=== PATIENT | male | born 1965 | race American Indian/Alaskan Native ===

== ENCOUNTER 2018-12-14 11:52 | Inpatient (IN) | payer BC, OTHER ==
[2018-12-14] MEDS ORDERED: D50W (25GM) Syringe IV ONE ×6 (12:02→18:00)
[2018-12-14] MEDS ORDERED: NACL 0.9% 1000 ML 1,000 ML ONE (12:02)
[2018-12-14] MEDS ORDERED: NACL 0.9% 1000 ML 1,000 ML IV ONE (12:03)
[2018-12-14 12:55] LABS: INR 2.22 (0.87-1.13)
[2018-12-14 12:56] LABS: Basophils % (Auto) 0.2 % (0.0-1.8); Eosinophils % (Auto) 0.1 % (0.0-4.3); Hemoglobin 8.8 gm/dl (11.8-15.2); Lymphocytes # (Auto) 0.5 K/mm3 (1.2-5.4); Lymphocytes % (Auto) 6.9 % (13.4-35.0); Mean Corpuscular HGB Conc 33 % (32-34); Monocytes # (Auto) 0.4 K/mm3 (0.0-0.8); Monocytes % (Auto) 5.7 % (0.0-7.3); Platelet Count 181 K/mm3 (140-440); Red Blood Count 4.02 M/mm3 (3.65-5.03)
[2018-12-14 12:56] LABS: Partial Thromboplastin Time 32.6 Sec. (24.2-36.6)
[2018-12-14 12:57] LABS: Mean Corpuscular Volume 67 fl (84-94); Red Cell Distribution Width 21.3 % (13.2-15.2)
[2018-12-14 13:05] LABS: Alanine Aminotransferase 109 units/L (7-56); BUN/Creatinine Ratio 64; Bilirubin,Direct 3.4 mg/dL (0-0.2); Blood Urea Nitrogen 32 mg/dL (9-20); Calcium 7.3 mg/dL (8.4-10.2); Hemolysis Index 2
--- NOTE | 2018-12-14 13:43 | Emergency Department Report ---
ED General Adult HPI - General Chief complaint: Altered Mental Status Stated complaint: LBS Source: EMS Mode of arrival: Stretcher Limitations: Altered Mental Status - History of Present Illness Initial comments: This is a 55-year-old man with apparent end-stage metastatic cancer of unknown primary. He resides in a hospitalist. Paramedics were called to the facility to respond to an unresponsive patient. They found the patient to have a glucose of 10 and agonal respirations. He did not have a cardiac arrest per se. He was intubated by medics in the field without sedation. Medics were unable to establish IV access and thus he was not given D50. He was transported to this facility where access was achieved. Accu-Chek showed a glucose of 71 after 1 amp of D50 was given. An additional amp was provided. Patient did not apparently respond. He was found to have myotic and poorly reactive pupils. -: unknown - Related Data Allergies Allergy/AdvReac Type Severity Reaction Status Date / Time Unable to Assess Allergy Unverified 12/14/18 12:43 ED Review of Systems ROS: Stated complaint: LBS Other details as noted in HPI Comment: Unobtainable due to pts medical conditions ED Past Medical Hx - Past Medical History Hx of Cancer: Yes (colon) Additional medical history: unable to assess due to unresponsiveness - Surgical History Additional Surgical History: unable to assess due to unresponsiveness - Social History Smoking Status: Unknown if ever smoked Other Social History: Hospice patient with "full CODE STATUS" ED Physical Exam - General Limitations: Altered Mental Status General appearance: cachectic, other (unresponsive) - Head Head exam: Present: atraumatic, normocephalic - Eye Eye exam: Present: scleral icterus - Neck Neck exam: Present: normal inspection - Respiratory Respiratory exam: Present: normal lung sounds bilaterally (with Ambu bag assist) - Cardiovascular Cardiovascular Exam: Present: regular rate, normal rhythm. Absent: systolic murmur, diastolic murmur, rubs, gallop - GI/Abdominal GI/Abdominal exam: Present: soft, distended, organomegaly, mass, other (likely ascites) - Extremities Exam Extremities exam: Present: pedal edema - Neurological Exam Neurological exam: Present: other (obtunded) ED Course Vital Signs 12/14/18 12/14/18 11:53 12:00 Temperature 93.6 F L Pulse Rate 91 H 83 Respiratory 15 Rate Blood Pressure 86/51 109/79 O2 Sat by Pulse 97 100 Oximetry - Reevaluation(s) Reevaluation #1: Patient's blood glucose came back 411. Accu-Cheks were persistently low at 2 machines. A repeat BMP is pending. We will monitor the Accu-Chek again. Patient was found to be hypothermic. He was placed on warming blanket. He was given empiric Miotics. He will be admitted to the hospitalist service. CT of his head is pending. 12/14/18 14:05 Reevaluation #2: It appears clear that the patient has suffered a significant brain injury. CT is as yet pending. He received a first round of antibiotics for his hypothermic state. I did not order a lactic acid level because it would be predictably high. Do not believe the patient is septic. He is clinically end-stage. I discussed the circumstances with Dr. Forde who is inclined to arrange for milli nued hospice care if this is possible to allow natural . 12/14/18 15:04 ED Medical Decision Making - Lab Data Result diagrams: 12/14/18 12:28 12/14/18 13:59 Laboratory Results - last 24 hr 12/14/18 12/14/18 12/14/18 12:19 12:19 12:19 WBC RBC Hgb Hct MCV MCH MCHC RDW Plt Count Lymph % (Auto) Wheeler % (Auto) Eos % (Auto) Baso % (Auto) Lymph # Wheeler # Eos # Baso # Seg Neutrophils % Seg Neutrophils # PT 24.2 H INR 2.22 H APTT 32.6 POC ABG pH POC ABG pCO2 POC ABG HCO3 POC ABG Total CO2 POC ABG O2 Sat POC ABG Base Excess FiO2 Sodium Potassium Chloride Carbon Dioxide Anion Gap BUN Creatinine Estimated GFR BUN/Creatinine Ratio Glucose Calcium Phosphorus 5.10 H Magnesium Total Bilirubin Direct Bilirubin Indirect Bilirubin AST ALT Alkaline Phosphatase Troponin T < 0.010 NT-Pro-B Natriuret Pep Total Protein Albumin Albumin/Globulin Ratio 12/14/18 12/14/18 12/14/18 12:20 12:28 13:20 WBC 7.4 RBC 4.02 Hgb 8.8 L Hct 27.0 L MCV 67 L MCH 22 L MCHC 33 RDW 21.3 H Plt Count 181 Lymph % (Auto) 6.9 L Wheeler % (Auto) 5.7 Eos % (Auto) 0.1 Baso % (Auto) 0.2 Lymph # 0.5 L Wheeler # 0.4 Eos # 0.0 Baso # 0.0 Seg Neutrophils % 87.1 H Seg Neutrophils # 6.5 PT INR APTT POC ABG pH 7.396 POC ABG pCO2 37.0 POC ABG HCO3 22.7 POC ABG Total CO2 24 POC ABG O2 Sat 100 POC ABG Base Excess -2 FiO2 100 Sodium 129 L Potassium 4.8 Chloride 95.5 L Carbon Dioxide 21 L Anion Gap 17 BUN 32 H Creatinine 0.5 L Estimated GFR > 60 BUN/Creatinine Ratio 64 Glucose 411 H Calcium 7.3 L Phosphorus Magnesium 2.00 Total Bilirubin 4.20 H Direct Bilirubin 3.4 H Indirect Bilirubin 0.8 AST 405 H ALT 109 H Alkaline Phosphatase 438 H Troponin T NT-Pro-B Natriuret Pep 567.7 Total Protein 4.4 L Albumin 2.0 L Albumin/Globulin Ratio 0.8 Laboratory Results - last 24 hr 12/14/18 12/14/18 12/14/18 12:05 12:19 12:19 WBC RBC Hgb Hct MCV MCH MCHC RDW Plt Count Lymph % (Auto) Wheeler % (Auto) Eos % (Auto) Baso % (Auto) Lymph # Wheeler # Eos # Baso # Seg Neutrophils % Seg Neutrophils # PT 24.2 H INR 2.22 H APTT 32.6 POC ABG pH POC ABG pCO2 POC ABG HCO3 POC ABG Total CO2 POC ABG O2 Sat POC ABG Base Excess FiO2 Sodium Potassium Chloride Carbon Dioxide Anion Gap BUN Creatinine Estimated GFR BUN/Creatinine Ratio Glucose POC Glucose 61 L Calcium Phosphorus Magnesium Total Bilirubin Direct Bilirubin Indirect Bilirubin AST ALT Alkaline Phosphatase Troponin T < 0.010 NT-Pro-B Natriuret Pep Total Protein Albumin Albumin/Globulin Ratio 12/14/18 12/14/18 12/14/18 12:19 12:20 12:28 WBC 7.4 RBC 4.02 Hgb 8.8 L Hct 27.0 L MCV 67 L MCH 22 L MCHC 33 RDW 21.3 H Plt Count 181 Lymph % (Auto) 6.9 L Wheeler % (Auto) 5.7 Eos % (Auto) 0.1 Baso % (Auto) 0.2 Lymph # 0.5 L Wheeler # 0.4 Eos # 0.0 Baso # 0.0 Seg Neutrophils % 87.1 H Seg Neutrophils # 6.5 PT INR APTT POC ABG pH POC ABG pCO2 POC ABG HCO3 POC ABG Total CO2 POC ABG O2 Sat POC ABG Base Excess FiO2 Sodium 129 L Potassium 4.8 Chloride 95.5 L Carbon Dioxide 21 L Anion Gap 17 BUN 32 H Creatinine 0.5 L Estimated GFR > 60 BUN/Creatinine Ratio 64 Glucose 411 H POC Glucose Calcium 7.3 L Phosphorus 5.10 H Magnesium 2.00 Total Bilirubin 4.20 H Direct Bilirubin 3.4 H Indirect Bilirubin 0.8 AST 405 H ALT 109 H Alkaline Phosphatase 438 H Troponin T NT-Pro-B Natriuret Pep 567.7 Total Protein 4.4 L Albumin 2.0 L Albumin/Globulin Ratio 0.8 12/14/18 12/14/18 12/14/18 12:35 13:20 13:23 WBC RBC Hgb Hct MCV MCH MCHC RDW Plt Count Lymph % (Auto) Wheeler % (Auto) Eos % (Auto) Baso % (Auto) Lymph # Wheeler # Eos # Baso # Seg Neutrophils % Seg Neutrophils # PT INR APTT POC ABG pH 7.396 POC ABG pCO2 37.0 POC ABG HCO3 22.7 POC ABG Total CO2 24 POC ABG O2 Sat 100 POC ABG Base Excess -2 FiO2 100 Sodium Potassium Chloride Carbon Dioxide Anion Gap BUN Creatinine Estimated GFR BUN/Creatinine Ratio Glucose POC Glucose 77 82 Calcium Phosphorus Magnesium Total Bilirubin Direct Bilirubin Indirect Bilirubin AST ALT Alkaline Phosphatase Troponin T NT-Pro-B Natriuret Pep Total Protein Albumin Albumin/Globulin Ratio 12/14/18 12/14/18 13:58 13:59 WBC RBC Hgb Hct MCV MCH MCHC RDW Plt Count Lymph % (Auto) Wheeler % (Auto) Eos % (Auto) Baso % (Auto) Lymph # Wheeler # Eos # Baso # Seg Neutrophils % Seg Neutrophils # PT INR APTT POC ABG pH POC ABG pCO2 POC ABG HCO3 POC ABG Total CO2 POC ABG O2 Sat POC ABG Base Excess FiO2 Sodium 135 L Potassium 5.8 H D Chloride 100.4 Carbon Dioxide 20 L Anion Gap 20 BUN 31 H Creatinine 0.3 L Estimated GFR > 60 BUN/Creatinine Ratio 103 Glucose 80 POC Glucose 61 L Calcium 7.8 L Phosphorus Magnesium Total Bilirubin 4.90 H Direct Bilirubin Indirect Bilirubin AST 611 H ALT 163 H Alkaline Phosphatase 500 H Troponin T NT-Pro-B Natriuret Pep Total Protein 5.1 L Albumin 2.2 L Albumin/Globulin Ratio 0.8 - EKG Data -: EKG Interpreted by Me EKG shows normal: sinus rhythm - EKG Data Interpretation: other (motion artifact could be consistent with hypothermia. P ossible first degree AV block. Somewhat poor R-wave progression. Nonspecific.) - Radiology Data interpreted by me: Her tracheal tube is in the thorax beyond the thoracic inlet. Maybe about 5 cm above the beatriz. This is adequate to position. There appears to be a met in the right lower lobe. Critical Care Time: Yes Critical care time in (mins) excluding proc time.: 90 Critical care attestation.: If time is entered above; I have spent that time in minutes in the direct care of this critically ill patient, excluding procedure time. ED Disposition Clinical Impression: Hypoglycemia Respiratory failure Qualifiers: Chronicity: acute Respiratory failure complication: unspecified whether with hypoxia or hypercapnia Qualified Code(s): J96.00 - Acute respiratory failure, unspecified whether with hypoxia or hypercapnia Hypothermia Qualifiers: Encounter type: initial encounter Qualified Code(s): T68.XXXA - Hypothermia, initial encounter Coma Qualifiers: Coma depth: other Coma timing: in the field (EMT or ambulance) Qualified Code(s): R40.2441 - Other coma, without documented [place] coma scale score, or with partial score reported, in the field [EMT or ambulance] Disposition: DC-09 OP ADMIT IP TO THIS HOSP Is pt being admited?: Yes Does the pt Need Aspirin: No (we'll decide after CT) Condition: Stable Time of Disposition: 15:06
[2018-12-14] MEDS ORDERED: MERREM 1,000 MG in NACL 0.9% 100 ML IV ONE (13:50)
--- NOTE | 2018-12-14 14:14 | XRay Report ---
CHEST 1 VIEW INDICATION: ETT placement. COMPARISON: None FINDINGS: Support devices: An endotracheal tube has been inserted which terminates 5.3 cm superior to the richelle a Heart: Within normal limits. Lungs/Pleura: Mild emphysematous changes are suspected in the upper lobes. A 2.5 cm rounded masslike lesion overlies the right lower lobe. The remainder the lungs are clear. No pleural effusion or pneum othorax. Additional findings: None. IMPRESSION: Adequate placement of the endotracheal tube. Possible 2.5 cm right lower lobe mass. Consider follow- up CT chest with contrast. Signer Name: Shaun Babcock Jr, MD Signed: 12/14/2018 2:09 PM Workstation Name: [id number]
[2018-12-14 14:39] LABS: Alanine Aminotransferase 163 units/L (7-56); Albumin 2.2 g/dL (3.9-5); BUN/Creatinine Ratio 103; Blood Urea Nitrogen 31 mg/dL (9-20); Calcium 7.8 mg/dL (8.4-10.2); Hemolysis Index 64
[2018-12-14] MEDS: ARTIFICIAL TEARS OPHTH OINT OU PRN (15:31)
[2018-12-14] MEDS: VASELINE LIP THERAPY TP PRN (15:31)
--- NOTE | 2018-12-14 16:59 | History and Physical Report ---
History of Present Illness Chief complaint: Unresponsive History of present illness: 53 YO Male Assisted Living Facility Resident currently on Hospice care with [facility] with Metastatic Neoplasm with Unknown primary presents to ED for evaluation. Pt is unresponsive and unable to provide history. Pt history pro vided by ED staff, as well as RESIDENTIAL staff. As per staff, the patient has experience decreased oral intake over the past 2 weeks with increased confusion, and is currently unable to independently conduct activities of daily living. Pt was found to be stuporous today. EMS was notified and upon arrival the patient was found to be in respiratory distress with agonal respirations and a serum glucose of 10. Pt intubated and initiated on D50 and transported to [facility]. Pt seen and evaluated in ED and placed on vent support. Pt prognosis discussed with [facility] staff, and patient Hospice Benefit has been revoked and family requests aggressive therapy. Pt father Juaquin HustonSr. is currently en route to the hospital. Pt found to have Acute Respiratory Failure, Severe Malnutrition, Encephalopathy, as well as R Lung mass, and Hepatic Failure. Pt has poor prognosis. Pt admitted to ICU. Pulmonary team consulted in ED. Extra 60 minutes critical care time spent coordinating patient care. 30 minutes spent conducting Advanced care planning. No prior admission for review. No listed medication for reconciliation at time of admission. Past History Past Medical History: cancer Past Surgical History: No surgical history, Other (Unable to Obtain) Social history: no significant social history (Unable to obtain) Family history: no significant family history (Unable to Obtain) Medications and Allergies Allergies Allergy/AdvReac Type Severity Reaction Status Date / Time No Known Allergies Allergy Unverified 12/14/18 20:51 Active Meds: Active Medications Hydrophilic Ointment (Vaseline Lip Therapy) 1 applic TP Q2HR PRN PRN Reason: Dry Lips Last Admin: 12/14/18 15:31 Dose: 1 applic Documented by: Multi-Ingred Cream/Lotion/Oil/Oint (Artificial Tears Ophth Oint) 1 applic OU Q4HR PRN PRN Reason: Dry Eye(s) Last Admin: 12/14/18 15:31 Dose: 1 applic Documented by: Review of Systems ROS unobtainable: due to endotracheal tube, due to mental status Exam - Constitutional Vitals: Temp Pulse Resp BP Pulse Ox 93.6 F L 123 H 20 101/74 100 12/14/18 11:53 07/12/19 15:43 12/14/18 15:44 12/14/18 14:00 12/14/18 15:44 General appearance: Present: severe distress - EENT Eyes: Present: miosis - Neck Neck: Present: supple, normal ROM - Respiratory Respiratory: bilateral: diminished, rhonchi - Cardiovascular Heart Sounds: Present: S1 & S2. Absent: rub, click - Extremities Extremities: pulses symmetrical, No edema Peripheral Pulses: within normal limits - Abdominal General gastrointestinal: Present: soft, non-tender, non-distended, normal bowel sounds Male genitourinary: Present: normal - Integumentary Integumentary: Present: clear, dry - Musculoskeletal Musculoskeletal: generalized weakness - Psychiatric Psychiatric: no appropriate mood/affect, no intact judgment & insight, no memory intact - Neurologic Neurologic: CNII-XII intact, no gait normal Results - Labs CBC & Chem 7: 12/15/18 04:05 12/15/18 04:05 Labs: Abnormal lab results 12/14/18 12/14/18 12/14/18 Range/Units 12:05 12:19 12:19 Hgb (11.8-15.2) gm/dl Hct (35.5-45.6) % MCV (84-94) fl MCH (28-32) pg RDW (13.2-15.2) % Lymph % (Auto) (13.4-35.0) % Lymph # (1.2-5.4) K/mm3 Seg Neutrophils % (40.0-70.0) % PT 24.2 H (12.2-14.9) Sec. INR 2.22 H (0.87-1.13) Sodium (137-145) mmol/L Potassium (3.6-5.0) mmol/L Chloride (98-107) mmol/L Carbon Dioxide (22-30) mmol/L BUN (9-20) mg/dL Creatinine (0.8-1.5) mg/dL Glucose (75-100) mg/dL POC Glucose 61 L (70-105) Calcium (8.4-10.2) mg/dL Phosphorus 5.10 H (2.5-4.5) mg/dL Total Bilirubin (0.1-1.2) mg/dL Direct Bilirubin (0-0.2) mg/dL AST (5-40) units/L ALT (7-56) units/L Alkaline Phosphatase (35-129) units/L Ammonia (25-60) umol/L Total Protein (6.3-8.2) g/dL Albumin (3.9-5) g/dL 12/14/18 12/14/18 12/14/18 Range/Units 12:20 12:28 13:58 Hgb 8.8 L (11.8-15.2) gm/dl Hct 27.0 L (35.5-45.6) % MCV 67 L (84-94) fl MCH 22 L (28-32) pg RDW 21.3 H (13.2-15.2) % Lymph % (Auto) 6.9 L (13.4-35.0) % Lymph # 0.5 L (1.2-5.4) K/mm3 Seg Neutrophils % 87.1 H (40.0-70.0) % PT (12.2-14.9) Sec. INR (0.87-1.13) Sodium 129 L (137-145) mmol/L Potassium (3.6-5.0) mmol/L Chloride 95.5 L (98-107) mmol/L Carbon Dioxide 21 L (22-30) mmol/L BUN 32 H (9-20) mg/dL Creatinine 0.5 L (0.8-1.5) mg/dL Glucose 411 H (75-100) mg/dL POC Glucose 61 L (70-105) Calcium 7.3 L (8.4-10.2) mg/dL Phosphorus (2.5-4.5) mg/dL Total Bilirubin 4.20 H (0.1-1.2) mg/dL Direct Bilirubin 3.4 H (0-0.2) mg/dL AST 405 H (5-40) units/L ALT 109 H (7-56) units/L Alkaline Phosphatase 438 H (35-129) units/L Ammonia (25-60) umol/L Total Protein 4.4 L (6.3-8.2) g/dL Albumin 2.0 L (3.9-5) g/dL 12/14/18 12/14/18 Range/Units 13:59 14:38 Hgb (11.8-15.2) gm/dl Hct (35.5-45.6) % MCV (84-94) fl MCH (28-32) pg RDW (13.2-15.2) % Lymph % (Auto) (13.4-35.0) % Lymph # (1.2-5.4) K/mm3 Seg Neutrophils % (40.0-70.0) % PT (12.2-14.9) Sec. INR (0.87-1.13) Sodium 135 L (137-145) mmol/L Potassium 5.8 H D (3.6-5.0) mmol/L Chloride (98-107) mmol/L Carbon Dioxide 20 L (22-30) mmol/L BUN 31 H (9-20) mg/dL Creatinine 0.3 L (0.8-1.5) mg/dL Glucose (75-100) mg/dL POC Glucose (70-105) Calcium 7.8 L (8.4-10.2) mg/dL Phosphorus (2.5-4.5) mg/dL Total Bilirubin 4.90 H (0.1-1.2) mg/dL Direct Bilirubin (0-0.2) mg/dL AST 611 H (5-40) units/L ALT 163 H (7-56) units/L Alkaline Phosphatase 500 H (35-129) units/L Ammonia 83.0 H (25-60) umol/L Total Protein 5.1 L (6.3-8.2) g/dL Albumin 2.2 L (3.9-5) g/dL Assessment and Plan - Patient Problems (1) Acute respiratory failure Current Visit: Yes Status: Acute Qualifiers: Respiratory failure complication: hypoxia Qualified Code(s): J96.01 - Acute respiratory failure with hypoxia Plan to address problem: Pt intubated, sedated and placed on vent support. Wean vent as tolerated, daily SBT, ABG, suupportive care. The high probability of a clinically significant, sudden or life threatening deterioration of the [Neuro, respiratory, cardiac, renal] system(s) required my full and direct attention, intervention and personal management. The aggregate critical care time was [120] minutes. This time is in addition to time spent performing reported procedures but includes the following: [x] Data Review and interpretation [x] Patient assessment and monitoring of vital signs [x] Documentation [x] Medication orders and management (2) Malignant neoplasm Current Visit: Yes Status: Acute Plan to address problem: Suupportive care, Chest x ray, pain control, IVF resuscitation, (3) Encephalopathy Current Visit: Yes Status: Acute Plan to address problem: CT Head, neuro check, seizure precautions, IVF resuscitation therapy (4) Hepatic failure Current Visit: Yes Status: Acute Qualifiers: Hepatic coma status: with hepatic coma Plan to address problem: Supportive care, suspected secondary to metastatic disease, pain control supportive care. (5) Acidosis Current Visit: Yes Status: Acute Plan to address problem: IVF resuscitation therapy, repeat bmp in am. (6) Hypoglycemia Current Visit: Yes Status: Acute Plan to address problem: D5 drip, IVF resuscitation therapy (7) Hypothermia Current Visit: Yes Status: Acute Qualifiers: Encounter type: initial encounter Qualified Code(s): T68.XXXA - Hypothermia, initial encounter Plan to address problem: Warming blanket, pain control, supportive care. (8) DVT prophylaxis Current Visit: Yes Status: Acute Plan to address problem: SCD to BLE while in bed, hold anticoagulation for now due to metastatic liver disease.
--- NOTE | 2018-12-14 17:05 | Cat Scan Report ---
CT BRAIN: 12/14/2018 at 1626 hours INDICATION / CLINICAL INFORMATION: unconscious post code. COMPARISON: None available. FINDINGS: BRAIN/INTRACRANIAL STRUCTURES: Unenhanced CT images of the brain demonstrate no evidence of acute int racranial abnormality. Ventricles and sulci are slightly prominent in size for a patient of this age, consistent with some d iffuse cerebral atrophy. There is no CT evidence of acute ischemic injury, hemorrhage, or mass. There are no abnormal extra-ax ial fluid collections. EXTRACRANIAL STRUCTURES: Unremarkable. IMPRESSION: No acute abnormality. Mild cerebral atrophy. All CT scans at this location are performed using dose reduction to ALARA by means of automated expos ure control. Signer Name: Alvin Sapp MD Signed: 12/14/2018 5:01 PM Workstation Name: [id number]
[2018-12-14] MEDS ORDERED: MORPHINE IV PRN (18:46)
[2018-12-14] MEDS ORDERED: PROVENTIL IH PRN (18:46)
[2018-12-14] MEDS ORDERED: SODIUM CHLORIDE FLUSH SYRINGE 10 ML IV PRN (18:46)
[2018-12-14] MEDS ORDERED: KIONEX PR ONE ×2 (19:30→23:15)
[2018-12-14] MEDS ORDERED: CALCIUM GLUCONATE 1,000 MG in NACL 0.9% 100 ML IV ONE (19:30)
[2018-12-14] MEDS ORDERED: SUBLIMAZE IV PRN (19:53)
[2018-12-14] MEDS: D5/0.45NS 1,000 ML IV SCH (22:23)
[2018-12-14] MEDS: SODIUM CHLORIDE FLUSH SYRINGE 10 ML IV SCH (22:24)
--- NOTE | 2018-12-15 03:15 | XRay Report ---
CHEST 1 VIEW INDICATION / CLINICAL INFORMATION: follow up respiratory failure. COMPARISON: 12/14/2018 FINDINGS: SUPPORT DEVICES: The tip of the endotracheal tube is located 7 cm above the HEART / MEDIASTINUM: No significant abnormality. LUNGS / PLEURA: No significant pulmonary or pleural abnormality. No pneumothorax. ADDITIONAL FINDINGS: Possible nodular density seen on the comparison study appears to correlate with the anterior portion of the right fourth rib may represent costochondral hypertrophy. IMPRESSION: 1. No acute findings. Signer Name: Uday Marques MD Signed: 12/15/2018 3:10 AM Workstation Name: [id number]
[2018-12-15 04:35] LABS: Hematocrit 32.4 % (35.5-45.6); Hemoglobin 10.6 gm/dl (11.8-15.2); Mean Corpuscular HGB Conc 33 % (32-34); Platelet Count 209 K/mm3 (140-440)
[2018-12-15 04:42] LABS: Mean Corpuscular Volume 66 fl (84-94); Red Cell Distribution Width 20.5 % (13.2-15.2)
[2018-12-15 04:56] LABS: Albumin 2.4 g/dL (3.9-5)
--- NOTE | 2018-12-15 06:51 | Consultation ---
History of Present Illness Consult date: 12/15/18 Requesting physician: AYANA POSADAS Reason for consult: abnormal CXR/CT, other (Encephalopathy, critical care management) History of present illness: 53 YO Male Assisted Living Facility Resident currently on Hospice care with [facility] with Metastatic Neoplasm with Unknown primary presents to ED for evaluation. Pt is unresponsive and unable to provide history. Pt history provided by ED staff, as well as [facility] staff. As per staff, the patient has experience decreased oral intake over the past 2 weeks with increased confusion, and is currently unable to independently conduct activities of daily living. Pt was found to be stuporous today. EMS was notified and upon arrival the patient was found to be in respiratory distress with agonal respirations and a serum glucose of 10. Pt intubated and initiated on D50 and transported to [facility]. Pt seen and evaluated in ED and placed on vent support. Pt prognosis discussed with [facility] staff, and patient Hospice Benefit has been revoked and family requests aggressive therapy. Pt father Juaquin Sr. Betzaida is currently en route to the hospital. Pt found to have Acute Respiratory Failure, Severe Malnutrition, Encephalopathy, as well as R Lung mass, and Hepatic Failure. Pt has poor prognosis. Patient admitted to ICU. I have been consulted fro critical care management Patient was seen and examined. Vitals, labs, medications, chart and imaging were reviewed. He is currently orally intubated to MVS, acceptable hemodynamics and is unresponsive. Vent settings AC-PRVC 15/500/6/30% On review of the medical records/paper chart, patient was discharged from hospice and is currently full code and full aggressive care. Discussed with RT and RN at the bedside Past History Past Medical History: cancer Past Surgical History: No surgical history, Other (Unable to Obtain) Social history: no significant social history (Unable to obtain) Family history: no significant family history (Unable to Obtain) Medications and Allergies Allergies Allergy/AdvReac Type Severity Reaction Status Date / Time No Known Allergies Allergy Unverified 12/14/18 20:51 Home Medications Medication Instructions Recorded Confirmed Last Taken Type oxyCODONE [roxiCODONE] 5 mg PO PRN PRN 12/15/18 12/15/18 Unknown History Active Meds: Active Medications Albuterol (Proventil) 2.5 mg IH Q3HRT PRN PRN Reason: Shortness Of Breath Fentanyl (Sublimaze) 50 mcg IV Q10MIN PRN PRN Reason: ANALGESIA Hydrophilic Ointment (Vaseline Lip Therapy) 1 applic TP Q2HR PRN PRN Reason: Dry Lips Last Admin: 12/14/18 15:31 Dose: 1 applic Documented by: Fentanyl Citrate (Fentanyl Drip Premix) 2,000 mcg in 100 mls @ 2.574 mls/hr IV TITR DAMON; Protocol Dextrose/Sodium Chloride (D5/0.45ns) 1,000 mls @ 100 mls/hr IV DIRECT DAMON Last Admin: 12/14/18 22:23 Dose: 100 mls/hr Documented by: Morphine Sulfate (Morphine) 2 mg IV Q2H PRN PRN Reason: Pain, Moderate (4-6) Multi-Ingred Cream/Lotion/Oil/Oint (Artificial Tears Ophth Oint) 1 applic OU Q4HR PRN PRN Reason: Dry Eye(s) Last Admin: 12/14/18 15:31 Dose: 1 applic Documented by: Sodium Chloride (Sodium Chloride Flush Syringe 10 Ml) 10 ml IV BID DAMON Last Admin: 12/14/18 22:24 Dose: 10 ml Documented by: Sodium Chloride (Sodium Chloride Flush Syringe 10 Ml) 10 ml IV PRN PRN PRN Reason: LINE FLUSH Review of Systems ROS unobtainable: due to endotracheal tube, due to mental status Physical Examination Vital signs: Vital Signs Temp Pulse Resp BP Pulse Ox 93.6 F L 91 H 15 86/51 97 12/14/18 11:53 12/14/18 11:53 12/14/18 11:53 12/14/18 11:53 12/14/18 11:53 General appearance: no acute distress, comatose, other (cachetic) Eyes: non-icteric ENT: oropharynx dry, other (orlly intubated, ETT 7.0 cm at 22cm at the lip) Neck: supple, no lymphadenopathy, no JVD Effort: normal (riding the set raate on MVS) Ascultation: Bilateral: diminished breath sounds Cardiovascular: regular rate and rhythm, other (S1,S2, no murmurs, gallops or rubs) Gastrointestinal: normoactive bowel sounds, soft, non-tender, non-distended Extremities: no cyanosis, no edema, no ischemia or petechiae unable to assess other (unable to assess) Results - Laboratory Findings CBC and BMP: 12/15/18 04:05 12/16/18 00:37 ABG POC ABG pH 7.530 (7.35-7.45) H 12/15/18 06:35 POC ABG pO2 160 (80-105) H 12/15/18 06:35 POC ABG HCO3 22.8 (22-26 mml/L) 12/15/18 06:35 POC ABG Total CO2 24 (23-27mmol/L) 12/15/18 06:35 POC ABG O2 Sat 100 12/15/18 06:35 PT/INR, D-dimer PT 24.2 Sec. (12.2-14.9) H 12/14/18 12:19 INR 2.22 (0.87-1.13) H 12/14/18 12:19 Abnormal lab findings: Abnormal Labs 12/14/18 12/14/18 12/14/18 12:05 12:19 12:19 Hgb Hct MCV MCH RDW Lymph % (Auto) Lymph # Seg Neutrophils % PT 24.2 H INR 2.22 H POC ABG pH POC ABG pO2 Sodium Potassium Chloride Carbon Dioxide BUN Creatinine Glucose POC Glucose 61 L Calcium Phosphorus 5.10 H Total Bilirubin Direct Bilirubin AST ALT Alkaline Phosphatase Ammonia Total Protein Albumin 12/14/18 12/14/18 12/14/18 12:20 12:28 13:58 Hgb 8.8 L Hct 27.0 L MCV 67 L MCH 22 L RDW 21.3 H Lymph % (Auto) 6.9 L Lymph # 0.5 L Seg Neutrophils % 87.1 H PT INR POC ABG pH POC ABG pO2 Sodium 129 L Potassium Chloride 95.5 L Carbon Dioxide 21 L BUN 32 H Creatinine 0.5 L Glucose 411 H POC Glucose 61 L Calcium 7.3 L Phosphorus Total Bilirubin 4.20 H Direct Bilirubin 3.4 H AST 405 H ALT 109 H Alkaline Phosphatase 438 H Ammonia Total Protein 4.4 L Albumin 2.0 L 12/14/18 12/14/18 12/14/18 13:59 14:38 17:41 Hgb Hct MCV MCH RDW Lymph % (Auto) Lymph # Seg Neutrophils % PT INR POC ABG pH POC ABG pO2 Sodium 135 L Potassium 5.8 H D Chloride Carbon Dioxide 20 L BUN 31 H Creatinine 0.3 L Glucose POC Glucose < 40 L Calcium 7.8 L Phosphorus Total Bilirubin 4.90 H Direct Bilirubin AST 611 H ALT 163 H Alkaline Phosphatase 500 H Ammonia 83.0 H Total Protein 5.1 L Albumin 2.2 L 12/14/18 12/14/18 12/15/18 17:59 23:45 00:21 Hgb Hct MCV MCH RDW Lymph % (Auto) Lymph # Seg Neutrophils % PT INR POC ABG pH POC ABG pO2 Sodium Potassium Chloride Carbon Dioxide BUN Creatinine Glucose 139 H POC Glucose 53 L 49 L Calcium Phosphorus Total Bilirubin Direct Bilirubin AST ALT Alkaline Phosphatase Ammonia Total Protein Albumin 12/15/18 12/15/18 12/15/18 03:50 04:05 04:05 Hgb 10.6 L Hct 32.4 L MCV 66 L MCH 22 L RDW 20.5 H Lymph % (Auto) Lymph # Seg Neutrophils % PT INR POC ABG pH 7.563 H POC ABG pO2 155 H Sodium Potassium Chloride Carbon Dioxide BUN Creatinine Glucose POC Glucose Calcium Phosphorus Total Bilirubin Direct Bilirubin AST ALT Alkaline Phosphatase Ammonia Total Protein Albumin 2.4 L 12/15/18 06:35 Hgb Hct MCV MCH RDW Lymph % (Auto) Lymph # Seg Neutrophils % PT INR POC ABG pH 7.530 H POC ABG pO2 160 H Sodium Potassium Chloride Carbon Dioxide BUN Creatinine Glucose POC Glucose Calcium Phosphorus Total Bilirubin Direct Bilirubin AST ALT Alkaline Phosphatase Ammonia Total Protein Albumin - Diagnostic Findings Chest x-ray: image reviewed (ETT is about 5 cm above beatriz, elevated right hem i-diaphragm, right lower lobe opacity/infiltrate) Additional studies: CT head, negative for any mass, bleed or shift Assessment and Plan Acute Hypoxemic Respiratory failure on MVS Severe hypoglycemia Lactic acidosis probably secondary to hypoperfusion Acute metabolic encephalopathy Protein-calorie malnutrition (severe) Right lower lobe lung mass h/o metastatic malignancy Liver failure( elevated Bilirubin, liver enzymes, elevated INR, hypoglycemia) Coagulopathy( probably secondary to liver failure and malnutrition) Microcytic anemia -Continue with mechanical ventilatory support, adjust minute ventilation for better gas exchange(has respiratory alkalosis) -VAP bundle addressed -Supplemental oxygen wean to O2 sats >990% -Daily SATs and SBTs per protocol and as tolerated -VTE prophylaxis( SCDs for now, elevated INR) -Stress ulcer prophylaxis -Place small bowel feeding tube for nutritional support -Nutrition consult, initiate enteric nutrition -Dextrose infusion until enteric nutrition is initiated -Vasopressor support as indicated to keep MAP>65 -Patient does not clinically have a focus of infection, it appears that his hypothermia and encephalopathy is probably related to hypoglycemia and metastatic liver disease -Mobility and off loading to prevent pressure ulcer -Accuchecks, avoid hypoglcemia -Aspiration precautions, HOB >40 -Will need to have goals of care discussions with the family and also discussions to get more information on the diagnosis of metastatic cancer -Monitor intake and output closely -Start lactulose for possible hepatic encephalopathy -Monitor for bleeding -With liver failure, lactic acidosis may persist for a longer period. Trend levels -Follow cultures, early de-escalation of antibiotics. PROGNOSIS: GUARDED-POOR CONDITION: CRITICAL CODE STATUS: FULL CODE The high probability of a clinically significant, sudden or life-threatening deterioration of the [respiratory, neurology, GI systems required my full and direct attention, intervention and personal management. The aggregate critical care time was [65] minutes without overlap. Time includes spent on; [x] Data Review and interpretation [x] Patient assessment and monitoring of vital signs [x] Documentation [x] Medication orders and management
[2018-12-15 08:04] LABS: Alanine Aminotransferase 241 units/L (7-56); BUN/Creatinine Ratio 140; Blood Urea Nitrogen 28 mg/dL (9-20); Calcium 8.3 mg/dL (8.4-10.2); Hemolysis Index 11
[2018-12-15] MEDS: D5/0.45NS 1,000 ML IV SCH ×2 (09:23→17:44)
[2018-12-15] MEDS: fentaNYL DRIP Premix 2,000 MCG/100 ML BAG IV SCH (09:23)
[2018-12-15] MEDS ORDERED: D50W (25GM) Syringe IV ONE ×3 (09:55→10:15)
[2018-12-15] MEDS ORDERED: PANCREAZE DR 10,500 UNIT FEEDTUBE PRN ×2 (10:17→10:58)
[2018-12-15] MEDS ORDERED: SODIUM BICARBONATE FEEDTUBE PRN ×2 (10:17→10:58)
[2018-12-15] MEDS ORDERED: SIMPLE SYRUP FEEDTUBE PRN ×4 (10:17→10:58)
[2018-12-15] MEDS: SODIUM CHLORIDE FLUSH SYRINGE 10 ML IV SCH (10:37)
[2018-12-15 10:39] LABS: Total Cells Counted 100
[2018-12-15 10:46] LABS: Anisocytosis 2+; Band Neutrophils # (Manual) 0.2 K/mm3; Basophils % (Manual) 0 % (0.0-1.8); Eosinophils % (Manual) 0 % (0.0-4.3); Hypochromasia 1+; Ovalocytes Few; Poikilocytosis 1+; Target Cells 1+
[2018-12-15 10:47] LABS: Platelet Estimate Consistent w Auto; Tear Drop Cells Rare
--- NOTE | 2018-12-15 11:24 | Progress Note ---
Assessment and Plan Assessment and plan: Septic shock. Patient meets criteria given the hypotension, hypothermia and liver failure. Maintain pressors as needed. Continue IV fluid hydration. Start IV antibiotics. Acute hypoxemic respiratory failure. Patient orally intubated on mechanical ventilation. Wean vent as tolerated, daily SBT, ABG, suupportive care. Pulmonary consulted and following. Primary cancer of unknown source. Metastatic Neoplasm with Unknown primary. Patient was previously on hospice. This designation apparently has been revoked. We will attempt to have continued discussed with the family. Toxic metabolic encephalopathy. CT scan negative. Etiology secondary to sepsis and hypoglycemia. Hepatic failure. Etiology likely secondary to metastatic disease, pain control supportive care. Hypoglycemia. Continue D50 and D5 IV fluid as needed. Start tube feedings The high probability of a clinically significant, sudden or life threatening deterioration of the [respiratory, hepatic and neurological] system(s) required my full and direct attention, intervention and personal management. The aggregate critical care time was [32] minutes. This time is in addition to time spent performing reported procedures but includes the following: [x] Data Review and interpretation [x] Patient assessment and monitoring of vital signs [x] Documentation [x] Medication orders and management History Interval history: No new issues overnight. Hospitalist Physical - Constitutional Vitals: Temp Pulse Resp BP Pulse Ox 97.6 F 113 H 15 93/70 97 12/15/18 08:00 12/15/18 09:16 12/15/18 07:41 12/15/18 09:16 12/15/18 09:16 General appearance: Present: severe distress, other (orally intubated) - EENT Eyes: Present: PERRL, EOM intact ENT: hearing intact, clear oral mucosa, dentition normal - Neck Neck: Present: supple, normal ROM - Respiratory Respiratory effort: normal Respiratory: bilateral: CTA - Cardiovascular Rhythm: regular Heart Sounds: Present: S1 & S2. Absent: gallop, rub - Extremities Extremities: no ischemia, No edema, Full ROM - Abdominal General gastrointestinal: soft, non-tender, non-distended, normal bowel sounds - Integumentary Integumentary: Present: clear, warm, dry - Neurologic Neurologic: other (encephalopathic responds minimally to pain) Results - Labs CBC & Chem 7: 12/15/18 04:05 12/15/18 04:05 Labs: Laboratory Last Values WBC 8.3 K/mm3 (4.5-11.0) 12/15/18 04:05 RBC 4.90 M/mm3 (3.65-5.03) 12/15/18 04:05 Hgb 10.6 gm/dl (11.8-15.2) L 12/15/18 04:05 Hct 32.4 % (35.5-45.6) L 12/15/18 04:05 MCV 66 fl (84-94) L 12/15/18 04:05 MCH 22 pg (28-32) L 12/15/18 04:05 MCHC 33 % (32-34) 12/15/18 04:05 RDW 20.5 % (13.2-15.2) H 12/15/18 04:05 Plt Count 209 K/mm3 (140-440) 12/15/18 04:05 Lymph % (Auto) 6.9 % (13.4-35.0) L 12/14/18 12:28 Leon % (Auto) Life Trainer 12/15/18 04:05 Eos % (Auto) 0.1 % (0.0-4.3) 12/14/18 12:28 Baso % (Auto) 0.2 % (0.0-1.8) 12/14/18 12:28 Lymph # 0.5 K/mm3 (1.2-5.4) L 12/14/18 12:28 Leon # 0.4 K/mm3 (0.0-0.8) 12/14/18 12:28 Eos # 0.0 K/mm3 (0.0-0.4) 12/14/18 12:28 Baso # 0.0 K/mm3 (0.0-0.1) 12/14/18 12:28 Add Manual Diff Complete 12/15/18 04:05 Total Counted 100 12/15/18 04:05 Seg Neutrophils % 87.1 % (40.0-70.0) H 12/14/18 12:28 Seg Neuts % (Manual) 88.0 % (40.0-70.0) H 12/15/18 04:05 2.0 % 12/15/18 04:05 7.0 % (13.4-35.0) L 12/15/18 04:05 Reactive Lymphs % (Man) 0 % 12/15/18 04:05 3.0 % (0.0-7.3) 12/15/18 04:05 0 % (0.0-4.3) 12/15/18 04:05 0 % (0.0-1.8) 12/15/18 04:05 0 % 12/15/18 04:05 0 % 12/15/18 04:05 0 % 12/15/18 04:05 0 % 12/15/18 04:05 Nucleated RBC % Not Reportable 12/15/18 04:05 Seg Neutrophils # 6.5 K/mm3 (1.8-7.7) 12/14/18 12:28 Seg Neutrophils # Man 7.3 K/mm3 (1.8-7.7) 12/15/18 04:05 Band Neutrophils # 0.2 K/mm3 12/15/18 04:05 0.6 K/mm3 (1.2-5.4) L 12/15/18 04:05 Abs React Lymphs (Man) 0.0 K/mm3 12/15/18 04:05 0.2 K/mm3 (0.0-0.8) 12/15/18 04:05 0.0 K/mm3 (0.0-0.4) 12/15/18 04:05 0.0 K/mm3 (0.0-0.1) 12/15/18 04:05 0.0 K/mm3 12/15/18 04:05 0.0 K/mm3 12/15/18 04:05 0.0 K/mm3 12/15/18 04:05 Blast Cells # 0.0 K/mm3 12/15/18 04:05 WBC Morphology Not Reportable 12/15/18 04:05 Hypersegmented Neuts Not Reportable 12/15/18 04:05 Hyposegmented Neuts Not Reportable 12/15/18 04:05 Hypogranular Neuts Not Reportable 12/15/18 04:05 Not Reportable 12/15/18 04:05 Not Reportable 12/15/18 04:05 Not Reportable 12/15/18 04:05 Not Reportable 12/15/18 04:05 Not Reportable 12/15/18 04:05 Not Reportable 12/15/18 04:05 Consistent w auto 12/15/18 04:05 Not Reportable 12/15/18 04:05 Plt Clumps, EDTA Not Reportable 12/15/18 04:05 Not Reportable 12/15/18 04:05 Not Reportable 12/15/18 04:05 Not Reportable 12/15/18 04:05 Plt Morphology Comment Not Reportable 12/15/18 04:05 RBC Morphology Not Reportable 12/15/18 04:05 Dimorphic RBCs Not Reportable 12/15/18 04:05 Not Reportable 12/15/18 04:05 1+ 12/15/18 04:05 1+ 12/15/18 04:05 2+ 12/15/18 04:05 2+ 12/15/18 04:05 Not Reportable 12/15/18 04:05 Not Reportable 12/15/18 04:05 Not Reportable 12/15/18 04:05 Not Reportable 12/15/18 04:05 1+ 12/15/18 04:05 Rare 12/15/18 04:05 Few 12/15/18 04:05 Not Reportable 12/15/18 04:05 Not Reportable 12/15/18 04:05 Not Reportable 12/15/18 04:05 Not Reportable 12/15/18 04:05 Not Reportable 12/15/18 04:05 Not Reportable 12/15/18 04:05 Few 12/15/18 04:05 Acanthocytes (Spur) Few 12/15/18 04:05 Rouleaux Not Reportable 12/15/18 04:05 Not Reportable 12/15/18 04:05 Not Reportable 12/15/18 04:05 Not Reportable 12/15/18 04:05 Not Reportable 12/15/18 04:05 Hem Pathologist Commnt No 12/15/18 04:05 PT 24.2 Sec. (12.2-14.9) H 12/14/18 12:19 INR 2.22 (0.87-1.13) H 12/14/18 12:19 APTT 32.6 Sec. (24.2-36.6) 12/14/18 12:19 POC ABG pH 7.422 (7.35-7.45) 12/15/18 09:14 POC ABG pCO2 36.5 (35-45) 12/15/18 09:14 POC ABG pO2 138 (80-105) H 12/15/18 09:14 POC ABG HCO3 23.8 (22-26 mml/L) 12/15/18 09:14 POC ABG Total CO2 25 (23-27mmol/L) 12/15/18 09:14 POC ABG O2 Sat 99 12/15/18 09:14 POC ABG Base Excess -1 ((-2) - (+3)mmol/L) 12/15/18 09:14 30 % 12/15/18 09:14 Sodium 138 mmol/L (137-145) 12/15/18 04:05 Potassium 3.9 mmol/L (3.6-5.0) D 12/15/18 04:05 Chloride 101.6 mmol/L (98-107) 12/15/18 04:05 Carbon Dioxide 20 mmol/L (22-30) L 12/15/18 04:05 20 mmol/L 12/15/18 04:05 BUN 28 mg/dL (9-20) H 12/15/18 04:05 < 0.2 mg/dL (0.8-1.5) L 12/15/18 04:05 Estimated GFR > 60 ml/min 12/15/18 04:05 140 % 12/15/18 04:05 Glucose 58 mg/dL (75-100) L 12/15/18 04:05 POC Glucose 123 (70-105) H 12/15/18 10:15 Calcium 8.3 mg/dL (8.4-10.2) L 12/15/18 04:05 Phosphorus 5.10 mg/dL (2.5-4.5) H 12/14/18 12:19 Magnesium 2.00 mg/dL (1.7-2.3) 12/14/18 12:20 5.20 mg/dL (0.1-1.2) H 12/15/18 04:05 3.4 mg/dL (0-0.2) H 12/14/18 12:20 0.8 mg/dL 12/14/18 12:20 AST 972 units/L (5-40) H 12/15/18 04:05 ALT 241 units/L (7-56) H 12/15/18 04:05 511 units/L (35-129) H 12/15/18 04:05 83.0 umol/L (25-60) H 12/14/18 14:38 < 0.010 ng/mL (0.00-0.029) 12/14/18 12:19 NT-Pro-B Natriuret Pep 567.7 pg/mL (0-900) 12/14/18 12:20 5.4 g/dL (6.3-8.2) L 12/15/18 04:05 2.4 g/dL (3.9-5) L 12/15/18 04:05 0.8 % 12/15/18 04:05 Active Medications - Current Medications Current Medications: Generic Name Dose Route Start Last Admin Trade Name Freq PRN Reason Stop Dose Admin Albuterol 2.5 mg 12/14/18 18:46 Proventil IH Q3HRT PRN Shortness Of Breath Lipase/Protease/Amylase 1 each 12/15/18 10:[address] 10,500 Unit FEEDTUBE PRN PRN For Clogged Feeding Tube Fentanyl 50 mcg 12/14/18 19:53 Sublimaze IV Q10MIN PRN ANALGESIA Hydrophilic Ointment 1 applic 12/14/18 12:16 12/14/18 15:31 Vaseline Lip Therapy TP 1 applic Q2HR PRN Administration Dry Lips Fentanyl Citrate 2,000 mcg in 100 mls @ 2.574 mls/hr 12/14/18 20:00 12/15/18 09:23 Fentanyl Drip Premix IV 2 mcg/kg/hr TITR DAMON 5.148 mls/hr Administration Protocol 1 MCG/KG/HR Dextrose/Sodium Chloride 1,000 mls @ 100 mls/hr 12/14/18 22:00 12/15/18 09:23 D5/0.45ns IV 100 mls/hr DIRECT DAMON Administration Morphine Sulfate 2 mg 12/14/18 18:46 Morphine IV Q2H PRN Pain, Moderate (4-6) Multi-Ingred Cream/Lotion/Oil/Oint 1 applic 12/14/18 12:16 12/14/18 15:31 Artificial Tears Ophth Oint OU 1 applic Q4HR PRN Administration Dry Eye(s) Simple Syrup 15 ml 12/15/18 10:17 Simple Syrup FEEDTUBE PRN PRN Hypoglycemia Simple Syrup 30 ml 12/15/18 10:17 Simple Syrup FEEDTUBE PRN PRN Hypoglycemia Sodium Bicarbonate 325 mg 12/15/18 10:17 Sodium Bicarbonate FEEDTUBE PRN PRN For Clogged Feeding Tube Sodium Chloride 10 ml 12/14/18 22:00 12/15/18 10:37 Sodium Chloride Flush Syringe 10 Ml IV 10 ml BID DAMON Administration Sodium Chloride 10 ml 12/14/18 18:46 Sodium Chloride Flush Syringe 10 Ml IV PRN PRN LINE FLUSH Nutrition/Malnutrition Assess - Dietary Evaluation Nutrition/Malnutrition Findings: Nutrition Notes Start: 12/15/18 10:49 Freq: Status: Active Protocol: Document 12/15/18 10:49 DMITRIY (Rec: 12/15/18 10:58 [email or web address]) Nutrition Notes Need for Assessment generated from: MD Order Initial or Follow up Assessment Current Diagnosis Respiratory Failure Other Pertinent Diagnosis Encephalopathy, Hepatic failure, Malignant neoplasm Current Diet NPO Labs/Tests BG 58 Elevated LFTs Pertinent Medications D5 1/2NS at 100ml/hr Height 5 ft 5 in Weight 51.483 kg [place] Body Weight (kg) 61.81 BMI 18.8 Subjective/Other Information RD consulted to evaluate nutritional intake and for TF. Pt intubated. He is from an assisted living facility and has had decreased PO intake for past two wks (along with increased confusion). Burn Absent Trauma Absent #1 Nutrition Diagnosis Inadequate oral intake [facility] As Evidenced by Signs and Symptoms pt NPO Is patient on ventilator? Yes Is Patient Ambulatory and/or Out of Bed No REE-([facility]-confined to bed) 1548.516 Kcal/Kg value to use for calculation 35 Approximate Energy Requirements Using 1802 kcal/Kg Calculation Used for Recommendations Kcal/kg Additional Notes Pro needs 1-1.5g/k-77g/ day Fluid needs per MD Nutrition Intervention Nutrition Support: Osmolite 1.5 at 50ml/hr with 150ml water flush q4h. Kcal 1,800 Protein (gm) 75 Carbohydrates (gm) 244 Fat (gm) 59 Fluid (mL) 914 Fiber (gm) 0 Goal #1 TF tolerance Goal #2 TF (at goal rate) to meet 100% energy and pro needs Goal #3 Wt maintenance Anticipated Discharge Needs: Continue TF if necessary Follow-Up By: 12/17/18 Additional Comments F/U: new TF, vent status
[2018-12-15] MEDS ORDERED: VANCOMYCIN/NS 1 GM/250 ML 1 GM/250 ML BAG IV ONE (12:00)
[2018-12-15] MEDS ORDERED: VANCOMYCIN PHARMACY TO DOSE IV SCH (12:00)
--- NOTE | 2018-12-15 12:37 | XRay Report ---
Abdomen single view INDICATION: Abdominal pain IMPRESSION: The weighted enteric feeding tube terminates within the mid stomach. No free air identifi ed. Signer Name: Garry Pierre MD Signed: 12/15/2018 12:32 PM Workstation Name: [id number]
[2018-12-15] MEDS: ZOSYN/NS 4.5GM/100ML 4.5 GM/100 ML VIAL IV SCH ×2 (12:50→20:52)
[2018-12-16] MEDS ORDERED: D50W (25GM) Syringe IV PRN (00:31)
[2018-12-16] MEDS ORDERED: D50W (25GM) Syringe IV ONE (00:32)
--- NOTE | 2018-12-16 02:33 | XRay Report ---
CHEST 1 VIEW INDICATION / CLINICAL INFORMATION: follow up respiratory failure. COMPARISON: 12/15/2018 FINDINGS: SUPPORT DEVICES: None. HEART / MEDIASTINUM: No significant abnormality. LUNGS / PLEURA: No significant pulmonary or pleural abnormality. No pneumothorax. ADDITIONAL FINDINGS: Question nodular opacity again noted projecting over the right inferior hemithor ax. IMPRESSION: 1. No acute findings. Signer Name: Uday Marques MD Signed: 12/16/2018 2:29 AM Workstation Name: [facility] [employer]
[2018-12-16] MEDS: ZOSYN/NS 4.5GM/100ML 4.5 GM/100 ML VIAL IV SCH ×3 (05:00→21:00)
[2018-12-16] MEDS: D5/0.45NS 1,000 ML IV SCH (05:20)
[2018-12-16] MEDS: fentaNYL DRIP Premix 2,000 MCG/100 ML BAG IV SCH (06:27)
[2018-12-16] MEDS ORDERED: NACL 0.9% 1000 ML 1,000 ML ONE (08:35)
[2018-12-16] MEDS ORDERED: NACL 0.9% 1000 ML 1,000 ML IV ONE (09:00)
[2018-12-16] MEDS: D5NS 1,000 ML IV SCH ×2 (09:04→18:10)
[2018-12-16] MEDS: SODIUM CHLORIDE FLUSH SYRINGE 10 ML IV SCH (10:00)
[2018-12-16] MEDS: VANCOMYCIN 750 MG in NACL 0.9% 250ML 250 ML IV SCH ×2 (11:25→11:26)
--- NOTE | 2018-12-16 12:47 | Progress Note ---
Assessment and Plan Assessment and plan: Septic shock. Maintain pressors as needed. Continue IV fluid hydration. Start IV antibiotics. Acute hypoxemic respiratory failure. Patient orally intubated on mechanical ventilation. Wean vent as tolerated, daily SBT, ABG, suupportive care. Pulmonary consulted and following. Primary cancer of unknown source. Metastatic Neoplasm with Unknown primary. Patient was previously on hospice. This designation apparently has been revoked. We will attempt to have continued discussed with the family. Father's number [phone] scan negative. Etiology secondary to sepsis and hypoglycemia. Hepatic failure. Etiology likely secondary to metastatic disease, pain control supportive care. Hypoglycemia. Continue D50 and D5 IV fluid as needed. Start tube feedings The high probability of a clinically significant, sudden or life threatening deterioration of the [respiratory, hepatic and neurological] system(s) required my full and direct attention, intervention and personal management. The aggregate critical care time was [33] minutes. This time is in addition to time spent performing reported procedures but includes the following: [x] Data Review and interpretation [x] Patient assessment and monitoring of vital signs [x] Documentation [x] Medication orders and management History Interval history: No new issues overnight. Hospitalist Physical - Constitutional Vitals: Temp Pulse Resp BP Pulse Ox 97.1 F L 115 H 16 98/62 100 12/16/18 08:00 12/16/18 12:15 12/16/18 12:11 12/16/18 12:15 12/16/18 12:15 General appearance: Present: severe distress, other (orally intubated) - EENT Eyes: Present: PERRL, EOM intact ENT: hearing intact, clear oral mucosa, dentition normal - Neck Neck: Present: supple, normal ROM - Respiratory Respiratory effort: normal Respiratory: bilateral: CTA - Cardiovascular Rhythm: regular Heart Sounds: Present: S1 & S2. Absent: gallop, rub - Extremities Extremities: no ischemia, No edema, Full ROM - Abdominal General gastrointestinal: soft, non-tender, non-distended, normal bowel sounds - Integumentary Integumentary: Present: clear, warm, dry - Neurologic Neurologic: CNII-XII intact, moves all extremities Results - Labs CBC & Chem 7: 12/15/18 04:05 12/16/18 00:37 Labs: Laboratory Last Values WBC 8.3 K/mm3 (4.5-11.0) 12/15/18 04:05 RBC 4.90 M/mm3 (3.65-5.03) 12/15/18 04:05 Hgb 10.6 gm/dl (11.8-15.2) L 12/15/18 04:05 Hct 32.4 % (35.5-45.6) L 12/15/18 04:05 MCV 66 fl (84-94) L 12/15/18 04:05 MCH 22 pg (28-32) L 12/15/18 04:05 MCHC 33 % (32-34) 12/15/18 04:05 RDW 20.5 % (13.2-15.2) H 12/15/18 04:05 Plt Count 209 K/mm3 (140-440) 12/15/18 04:05 Lymph % (Auto) 6.9 % (13.4-35.0) L 12/14/18 12:28 [place] % (Auto) Library Assistant 12/15/18 04:05 Eos % (Auto) 0.1 % (0.0-4.3) 12/14/18 12:28 Baso % (Auto) 0.2 % (0.0-1.8) 12/14/18 12:28 Lymph # 0.5 K/mm3 (1.2-5.4) L 12/14/18 12:28 [place] # 0.4 K/mm3 (0.0-0.8) 12/14/18 12:28 Eos # 0.0 K/mm3 (0.0-0.4) 12/14/18 12:28 Baso # 0.0 K/mm3 (0.0-0.1) 12/14/18 12:28 Add Manual Diff Complete 12/15/18 04:05 Total Counted 100 12/15/18 04:05 Seg Neutrophils % 87.1 % (40.0-70.0) H 12/14/18 12:28 Seg Neuts % (Manual) 88.0 % (40.0-70.0) H 12/15/18 04:05 2.0 % 12/15/18 04:05 7.0 % (13.4-35.0) L 12/15/18 04:05 Reactive Lymphs % (Man) 0 % 12/15/18 04:05 3.0 % (0.0-7.3) 12/15/18 04:05 0 % (0.0-4.3) 12/15/18 04:05 0 % (0.0-1.8) 12/15/18 04:05 0 % 12/15/18 04:05 0 % 12/15/18 04:05 0 % 12/15/18 04:05 0 % 12/15/18 04:05 Nucleated RBC % Not Reportable 12/15/18 04:05 Seg Neutrophils # 6.5 K/mm3 (1.8-7.7) 12/14/18 12:28 Seg Neutrophils # Man 7.3 K/mm3 (1.8-7.7) 12/15/18 04:05 Band Neutrophils # 0.2 K/mm3 12/15/18 04:05 0.6 K/mm3 (1.2-5.4) L 12/15/18 04:05 Abs React Lymphs (Man) 0.0 K/mm3 12/15/18 04:05 0.2 K/mm3 (0.0-0.8) 12/15/18 04:05 0.0 K/mm3 (0.0-0.4) 12/15/18 04:05 0.0 K/mm3 (0.0-0.1) 12/15/18 04:05 0.0 K/mm3 12/15/18 04:05 0.0 K/mm3 12/15/18 04:05 0.0 K/mm3 12/15/18 04:05 Blast Cells # 0.0 K/mm3 12/15/18 04:05 WBC Morphology Not Reportable 12/15/18 04:05 Hypersegmented Neuts Not Reportable 12/15/18 04:05 Hyposegmented Neuts Not Reportable 12/15/18 04:05 Hypogranular Neuts Not Reportable 12/15/18 04:05 Not Reportable 12/15/18 04:05 Not Reportable 12/15/18 04:05 Not Reportable 12/15/18 04:05 Not Reportable 12/15/18 04:05 Not Reportable 12/15/18 04:05 Not Reportable 12/15/18 04:05 Consistent w auto 12/15/18 04:05 Not Reportable 12/15/18 04:05 Plt Clumps, EDTA Not Reportable 12/15/18 04:05 Not Reportable 12/15/18 04:05 Not Reportable 12/15/18 04:05 Not Reportable 12/15/18 04:05 Plt Morphology Comment Not Reportable 12/15/18 04:05 RBC Morphology Not Reportable 12/15/18 04:05 Dimorphic RBCs Not Reportable 12/15/18 04:05 Not Reportable 12/15/18 04:05 1+ 12/15/18 04:05 1+ 12/15/18 04:05 2+ 12/15/18 04:05 2+ 12/15/18 04:05 Not Reportable 12/15/18 04:05 Not Reportable 12/15/18 04:05 Not Reportable 12/15/18 04:05 Not Reportable 12/15/18 04:05 1+ 12/15/18 04:05 Rare 12/15/18 04:05 Few 12/15/18 04:05 Not Reportable 12/15/18 04:05 Not Reportable 12/15/18 04:05 Not Reportable 12/15/18 04:05 Not Reportable 12/15/18 04:05 Not Reportable 12/15/18 04:05 Not Reportable 12/15/18 04:05 Few 12/15/18 04:05 Acanthocytes (Spur) Few 12/15/18 04:05 Rouleaux Not Reportable 12/15/18 04:05 Not Reportable 12/15/18 04:05 Not Reportable 12/15/18 04:05 Not Reportable 12/15/18 04:05 Not Reportable 12/15/18 04:05 Hem Pathologist Commnt No 12/15/18 04:05 PT 24.2 Sec. (12.2-14.9) H 12/14/18 12:19 INR 2.22 (0.87-1.13) H 12/14/18 12:19 APTT 32.6 Sec. (24.2-36.6) 12/14/18 12:19 POC ABG pH 7.328 (7.35-7.45) L 12/16/18 03:33 POC ABG pCO2 38.6 (35-45) 12/16/18 03:33 POC ABG pO2 118 (80-105) H 12/16/18 03:33 POC ABG HCO3 20.3 (22-26 mml/L) 12/16/18 03:33 POC ABG Total CO2 21 (23-27mmol/L) 12/16/18 03:33 POC ABG O2 Sat 98 12/16/18 03:33 POC ABG Base Excess -6 ((-2) - (+3)mmol/L) 12/16/18 03:33 25 % 12/16/18 03:33 Sodium 138 mmol/L (137-145) 12/15/18 04:05 Potassium 3.9 mmol/L (3.6-5.0) D 12/15/18 04:05 Chloride 101.6 mmol/L (98-107) 12/15/18 04:05 Carbon Dioxide 20 mmol/L (22-30) L 12/15/18 04:05 20 mmol/L 12/15/18 04:05 BUN 28 mg/dL (9-20) H 12/15/18 04:05 < 0.2 mg/dL (0.8-1.5) L 12/15/18 04:05 Estimated GFR > 60 ml/min 12/15/18 04:05 140 % 12/15/18 04:05 Glucose 282 mg/dL (75-100) H 12/16/18 00:37 POC Glucose 156 (70-105) H 12/16/18 01:10 Lactic Acid 2.80 mmol/L (0.7-2.0) H* 12/15/18 21:22 Calcium 8.3 mg/dL (8.4-10.2) L 12/15/18 04:05 Phosphorus 5.10 mg/dL (2.5-4.5) H 12/14/18 12:19 Magnesium 2.00 mg/dL (1.7-2.3) 12/14/18 12:20 5.20 mg/dL (0.1-1.2) H 12/15/18 04:05 3.4 mg/dL (0-0.2) H 12/14/18 12:20 0.8 mg/dL 12/14/18 12:20 AST 972 units/L (5-40) H 12/15/18 04:05 ALT 241 units/L (7-56) H 12/15/18 04:05 511 units/L (35-129) H 12/15/18 04:05 83.0 umol/L (25-60) H 12/14/18 14:38 < 0.010 ng/mL (0.00-0.029) 12/14/18 12:19 NT-Pro-B Natriuret Pep 567.7 pg/mL (0-900) 12/14/18 12:20 5.4 g/dL (6.3-8.2) L 12/15/18 04:05 2.4 g/dL (3.9-5) L 12/15/18 04:05 0.8 % 12/15/18 04:05 Active Medications - Current Medications Current Medications: Generic Name Dose Route Start Last Admin Trade Name Freq PRN Reason Stop Dose Admin Albuterol 2.5 mg 12/14/18 18:46 Proventil IH Q3HRT PRN Shortness Of Breath Lipase/Protease/Amylase 1 each 12/15/18 10:[address] 10,500 Unit FEEDTUBE PRN PRN For Clogged Feeding Tube Dextrose 50 ml 12/16/18 00:31 D50w (25gm) Syringe IV PRN PRN Hypoglycemia Fentanyl 50 mcg 12/14/18 19:53 Sublimaze IV Q10MIN PRN ANALGESIA Hydrophilic Ointment 1 applic 12/14/18 12:16 12/14/18 15:31 Vaseline Lip Therapy TP 1 applic Q2HR PRN Administration Dry Lips Fentanyl Citrate 2,000 mcg in 100 mls @ 2.574 mls/hr 12/14/18 20:00 12/16/18 10:26 Fentanyl Drip Premix IV 1 mcg/kg/hr TITR DAMON 2.574 mls/hr Titration Protocol 1 MCG/KG/HR Piperacillin Sod/Tazobactam Sod 4.5 gm in 100 mls @ 200 mls/hr 12/15/18 12:00 12/16/18 11:22 Zosyn/Ns 4.5gm/100ml IV 200 mls/hr Q8H DAMON Administration Protocol Vancomycin HCl 750 mg/ Sodium 265 mls @ 176.667 mls/hr 12/16/18 00:00 12/16/18 11:26 Chloride IV 176.667 mls/hr Q12H DAMON Administration Dextrose/Sodium Chloride 1,000 mls @ 100 mls/hr 12/16/18 09:00 12/16/18 09:04 D5ns IV 100 mls/hr DIRECT DAMON Administration Morphine Sulfate 2 mg 12/14/18 18:46 Morphine IV Q2H PRN Pain, Moderate (4-6) Multi-Ingred Cream/Lotion/Oil/Oint 1 applic 12/14/18 12:16 12/14/18 15:31 Artificial Tears Ophth Oint OU 1 applic Q4HR PRN Administration Dry Eye(s) Simple Syrup 15 ml 12/15/18 10:17 Simple Syrup FEEDTUBE PRN PRN Hypoglycemia Simple Syrup 30 ml 12/15/18 10:17 Simple Syrup FEEDTUBE PRN PRN Hypoglycemia Sodium Bicarbonate 325 mg 12/15/18 10:17 Sodium Bicarbonate FEEDTUBE PRN PRN For Clogged Feeding Tube Sodium Chloride 10 ml 12/14/18 22:00 12/16/18 10:00 Sodium Chloride Flush Syringe 10 Ml IV 10 ml BID DAMON Administration Sodium Chloride 10 ml 12/14/18 18:46 Sodium Chloride Flush Syringe 10 Ml IV PRN PRN LINE FLUSH Nutrition/Malnutrition Assess - Dietary Evaluation Nutrition/Malnutrition Findings: Nutrition Notes Start: 12/15/18 10:49 Freq: Status: Active Protocol: Document 12/15/18 10:49 [email or web address] (Rec: 12/15/18 10:58 SCJAYNA [email or web address]- [email or web address]) Nutrition Notes Need for Assessment generated from: MD Order Initial or Follow up Assessment Current Diagnosis Respiratory Failure Other Pertinent Diagnosis Encephalopathy, Hepatic failure, Malignant neoplasm Current Diet NPO Labs/Tests BG 58 Elevated LFTs Pertinent Medications D5 1/2NS at 100ml/hr Height 5 ft 5 in Weight 51.483 kg [place] Body Weight (kg) 61.81 BMI 18.8 Subjective/Other Information RD consulted to evaluate nutritional intake and for TF. Pt intubated. He is from an assisted living facility and has had decreased PO intake for past two wks (along with increased confusion). Burn Absent Trauma Absent #1 Nutrition Diagnosis Inadequate oral intake Etiology mech ventilation As Evidenced by Signs and Symptoms pt NPO Is patient on ventilator? Yes Is Patient Ambulatory and/or Out of Bed No REE-([place]-St. Jeor-confined to bed) 1548.516 Kcal/Kg value to use for calculation 35 Approximate Energy Requirements Using 1802 kcal/Kg Calculation Used for Recommendations Kcal/kg Additional Notes Pro needs 1-1.5g/k-77g/ day Fluid needs per MD Nutrition Intervention Nutrition Support: Osmolite 1.5 at 50ml/hr with 150ml water flush q4h. Kcal 1,800 Protein (gm) 75 Carbohydrates (gm) 244 Fat (gm) 59 Fluid (mL) 914 Fiber (gm) 0 Goal #1 TF tolerance Goal #2 TF (at goal rate) to meet 100% energy and pro needs Goal #3 Wt maintenance Anticipated Discharge Needs: Continue TF if necessary Follow-Up By: 12/17/18 Additional Comments F/U: new TF, vent status
--- NOTE | 2018-12-16 14:57 | Progress Note ---
Assessment and Plan Acute Hypoxemic Respiratory failure on MVS Severe hypoglycemia Lactic acidosis probably secondary to hypoperfusion Acute metabolic encephalopathy Protein-calorie malnutrition (severe) Right lower lobe lung mass h/o metastatic malignancy Liver failure( elevated Bilirubin, liver enzymes, elevated INR, hypoglycemia) Coagulopathy( probably secondary to liver failure and malnutrition) Microcytic anemia (I had an extended discussion with parents and family and initial goal is aggressive care and resuscitation) - Continue with full MVS acutely - VAP bundle addressed / Aspiration precautions, HOB >40 - continue supplemental oxygen wean to O2 sats >990% - daily SATs and SBTs assessment per protocol and as tolerated - begin enteral nutrition; advance to goal rate per plasterer journeyman's rec's - continue Dextrose infusion until hypoglycemia improves - glycemic control with q6h accuchecks and SSI for target BG 140-180 mg/dl - Vasopressor support as indicated to keep MAP>65 - So far patient does not clinically have a focus of infection, it appears that his hypothermia and encephalopathy is probably related to hypoglycemia and metastatic liver disease - continue mobility protocols and off loading to prevent pressure ulcer - Monitor intake and output closely - continue lactulose for hepatic encephalopathy - continue to monitor for bleeding - continiue to trend lactate levels (With liver failure, lactic acidosis may persist for a longer period) - Follow cultures and de-escalate based on microbiology and clinical data - get CRP level and trend lactate to aid clinical decision making / AB's de- escalation - VTE prophylaxis( SCDs for now, elevated INR) - Stress ulcer prophylaxis - Maintenance of sleep -wake cycle, avoid ICU psychosis/delirium PROGNOSIS: GUARDED-POOR CONDITION: CRITICAL CODE STATUS: FULL CODE The high probability of a clinically significant, sudden or life-threatening deterioration of the [respiratory, neurology, GI systems required my full and direct attention, intervention and personal management. The aggregate critical care time was [55] minutes without overlap. Time includes spent on; [x] Data Review and interpretation [x] Patient assessment and monitoring of vital signs [x] Documentation [x] Medication orders and management Subjective Date of service: 12/16/18 Principal diagnosis: Ac Hypoxemic Resp failure; Severe hypoglycemia; Ac encephalopathy; Colon CA Interval history: Patient is seen today for: Acute Hypoxemic Respiratory failure on MVS; Severe hypoglycemia; Lactic acidosis probably secondary to hypoperfusion; Acute metabolic encephalopathy; Protein-calorie malnutrition (severe); Right lower lobe lung mass; h/o metastatic malignancy; Liver failure (elevated Bilirubin, liver enzymes, elevated INR, hypoglycemia); Coagulopathy (probably secondary to liver failure and malnutrition); Microcytic anemia Seen and examined at bedside; 24hour events reviewed; nursing and respiratory care staff consulted; no adverse overnight events reported to me; resting peacefully in bed; opens eyes slightly to name calling; hypotensive but responding to fluid bolus; No emesis or overt aspiration; apparently has metastatic Colon CA Objective Vital Signs - 12hr 12/16/18 12/16/18 12/16/18 03:00 03:11 03:21 Temperature Pulse Rate 111 H 109 H 111 H Pulse Rate [ From Monitor] Respiratory 15 16 19 Rate Blood Pressure 87/63 87/63 88/61 O2 Sat by Pulse 100 100 100 Oximetry 12/16/18 12/16/18 12/16/18 03:30 03:33 03:41 Temperature Pulse Rate 111 H 110 H 112 H Pulse Rate [ From Monitor] Respiratory 15 14 Rate Blood Pressure 94/61 88/61 94/61 O2 Sat by Pulse 100 100 100 Oximetry 12/16/18 12/16/18 12/16/18 03:51 04:00 04:11 Temperature 97.6 F Pulse Rate 111 H 110 H 110 H Pulse Rate [ 110 H From Monitor] Respiratory 15 16 15 Rate Blood Pressure 90/60 82/58 82/58 O2 Sat by Pulse 100 98 100 Oximetry 12/16/18 12/16/18 12/16/18 04:21 04:30 04:41 Temperature Pulse Rate 112 H 113 H 112 H Pulse Rate [ From Monitor] Respiratory 15 15 15 Rate Blood Pressure 86/56 87/61 87/61 O2 Sat by Pulse 100 100 100 Oximetry 12/16/18 12/16/18 12/16/18 04:51 05:00 05:11 Temperature Pulse Rate 111 H 110 H 125 H Pulse Rate [ From Monitor] Respiratory 15 15 14 Rate Blood Pressure 84/57 84/56 84/56 O2 Sat by Pulse 100 100 100 Oximetry 12/16/18 12/16/18 12/16/18 05:21 05:30 05:41 Temperature Pulse Rate 115 H 115 H 112 H Pulse Rate [ From Monitor] Respiratory 20 22 15 Rate Blood Pressure 90/64 80/56 80/56 O2 Sat by Pulse 100 100 100 Oximetry 12/16/18 12/16/18 12/16/18 05:51 06:00 06:11 Temperature Pulse Rate 110 H 111 H 111 H Pulse Rate [ 111 H From Monitor] Respiratory 30 H 16 15 Rate Blood Pressure 80/53 85/55 85/55 O2 Sat by Pulse 100 98 100 Oximetry 12/16/18 12/16/18 12/16/18 06:21 06:30 06:41 Temperature Pulse Rate 111 H 113 H 111 H Pulse Rate [ From Monitor] Respiratory 15 15 15 Rate Blood Pressure 82/55 81/53 81/53 O2 Sat by Pulse 100 100 100 Oximetry 12/16/18 12/16/18 12/16/18 06:51 07:00 07:11 Temperature Pulse Rate 111 H 112 H 112 H Pulse Rate [ From Monitor] Respiratory 15 15 15 Rate Blood Pressure 76/54 84/51 84/51 O2 Sat by Pulse 100 100 100 Oximetry 12/16/18 12/16/18 12/16/18 07:21 07:30 07:41 Temperature Pulse Rate 116 H 112 H 114 H Pulse Rate [ From Monitor] Respiratory 14 17 15 Rate Blood Pressure 80/54 86/58 86/58 O2 Sat by Pulse 100 100 100 Oximetry 12/16/18 12/16/18 12/16/18 07:51 08:00 08:11 Temperature 97.1 F L Pulse Rate 114 H 119 H 114 H Pulse Rate [ 115 H From Monitor] Respiratory 14 15 15 Rate Blood Pressure 82/51 90/54 90/54 O2 Sat by Pulse 100 100 100 Oximetry 12/16/18 12/16/18 12/16/18 08:21 08:30 08:41 Temperature Pulse Rate 113 H 113 H 117 H Pulse Rate [ From Monitor] Respiratory 15 15 15 Rate Blood Pressure 79/51 79/54 79/54 O2 Sat by Pulse 100 100 100 Oximetry 12/16/18 12/16/18 12/16/18 08:51 09:00 09:11 Temperature Pulse Rate 115 H 113 H 111 H Pulse Rate [ From Monitor] Respiratory 15 16 15 Rate Blood Pressure 87/50 85/52 87/50 O2 Sat by Pulse 100 100 100 Oximetry 12/16/18 12/16/18 12/16/18 09:21 09:30 09:41 Temperature Pulse Rate 109 H 110 H 109 H Pulse Rate [ From Monitor] Respiratory 15 15 15 Rate Blood Pressure 80/57 87/52 87/52 O2 Sat by Pulse 100 100 100 Oximetry 12/16/18 12/16/18 12/16/18 09:50 09:51 10:00 Temperature Pulse Rate 109 H 109 H 111 H Pulse Rate [ From Monitor] Respiratory 15 16 Rate Blood Pressure 85/57 85/57 89/64 O2 Sat by Pulse 100 100 100 Oximetry 12/16/18 12/16/18 12/16/18 10:11 10:21 10:30 Temperature Pulse Rate 113 H 123 H 114 H Pulse Rate [ From Monitor] Respiratory 15 30 H 18 Rate Blood Pressure 85/57 89/57 91/67 O2 Sat by Pulse 100 100 100 Oximetry 12/16/18 12/16/18 12/16/18 10:41 10:51 11:01 Temperature Pulse Rate 120 H 128 H 126 H Pulse Rate [ From Monitor] Respiratory 15 20 18 Rate Blood Pressure 89/57 90/56 92/56 O2 Sat by Pulse 100 100 100 Oximetry 12/16/18 12/16/18 12/16/18 11:11 11:21 11:30 Temperature Pulse Rate 120 H 121 H 116 H Pulse Rate [ From Monitor] Respiratory 18 18 16 Rate Blood Pressure 90/56 98/59 90/57 O2 Sat by Pulse 100 100 100 Oximetry 12/16/18 12/16/18 12/16/18 11:41 11:51 12:00 Temperature 97.9 F Pulse Rate 116 H 111 H 114 H Pulse Rate [ 116 H From Monitor] Respiratory 15 19 15 Rate Blood Pressure 90/57 92/57 90/56 O2 Sat by Pulse 100 100 100 Oximetry 12/16/18 12/16/18 12/16/18 12:11 12:15 12:21 Temperature Pulse Rate 114 H 115 H 114 H Pulse Rate [ From Monitor] Respiratory 16 15 Rate Blood Pressure 90/56 98/62 98/62 O2 Sat by Pulse 100 100 100 Oximetry 12/16/18 12/16/18 12/16/18 12:30 12:41 12:51 Temperature Pulse Rate 115 H 116 H 118 H Pulse Rate [ From Monitor] Respiratory 15 15 15 Rate Blood Pressure 91/46 91/46 82/49 O2 Sat by Pulse 100 100 100 Oximetry 12/16/18 12/16/18 13:00 13:11 Temperature Pulse Rate 120 H 120 H Pulse Rate [ From Monitor] Respiratory 16 16 Rate Blood Pressure 88/55 82/49 O2 Sat by Pulse 100 100 Oximetry Constitutional: no acute distress, other (cachectic looking AAM, with temporal wasting riding the ventilator without obvious distress) Eyes: icteric ENT: oropharynx moist, other (ETT 24 cm RAYMUNDO) Neck: supple, no lymphadenopathy, no JVD Effort: mildly labored Ascultation: Bilateral: diminished breath sounds, rhonchi (scant) Percussion: Bilateral: not dull Cardiovascular: regular rate and rhythm Gastrointestinal: hypoactive bowel sounds, soft, non-tender, other (distended) Integumentary: other (poor turgor) Extremities: no cyanosis, pulses normal, no ischemia or petechiae, edema Neurologic: pupils equal and round, other (near obtunded; attempts to open eyes to name calling) Psychiatric: other (unable to assess) CBC and BMP: 12/15/18 04:05 12/16/18 15:14 ABG, PT/INR, D-dimer: ABG POC ABG pH 7.328 (7.35-7.45) L 12/16/18 03:33 POC ABG pCO2 38.6 (35-45) 12/16/18 03:33 POC ABG pO2 118 (80-105) H 12/16/18 03:33 POC ABG HCO3 20.3 (22-26 mml/L) 12/16/18 03:33 POC ABG Total CO2 21 (23-27mmol/L) 12/16/18 03:33 POC ABG O2 Sat 98 12/16/18 03:33 PT/INR, D-dimer PT 24.2 Sec. (12.2-14.9) H 12/14/18 12:19 INR 2.22 (0.87-1.13) H 12/14/18 12:19 Abnormal lab findings: Abnormal Labs 12/14/18 12/14/18 12/14/18 12:05 12:19 12:19 Hgb Hct MCV MCH RDW Lymph % (Auto) Lymph # Seg Neutrophils % Seg Neuts % (Manual) Lymphocytes % (Manual) Lymphocytes # (Manual) PT 24.2 H INR 2.22 H POC ABG pH POC ABG pO2 Sodium Potassium Chloride Carbon Dioxide BUN Creatinine Glucose POC Glucose 61 L Lactic Acid Calcium Phosphorus 5.10 H Total Bilirubin Direct Bilirubin AST ALT Alkaline Phosphatase Ammonia Total Protein Albumin 12/14/18 12/14/18 12/14/18 12:20 12:28 13:58 Hgb 8.8 L Hct 27.0 L MCV 67 L MCH 22 L RDW 21.3 H Lymph % (Auto) 6.9 L Lymph # 0.5 L Seg Neutrophils % 87.1 H Seg Neuts % (Manual) Lymphocytes % (Manual) Lymphocytes # (Manual) PT INR POC ABG pH POC ABG pO2 Sodium 129 L Potassium Chloride 95.5 L Carbon Dioxide 21 L BUN 32 H Creatinine 0.5 L Glucose 411 H POC Glucose 61 L Lactic Acid Calcium 7.3 L Phosphorus Total Bilirubin 4.20 H Direct Bilirubin 3.4 H AST 405 H ALT 109 H Alkaline Phosphatase 438 H Ammonia Total Protein 4.4 L Albumin 2.0 L 12/14/18 12/14/18 12/14/18 13:59 14:38 17:41 Hgb Hct MCV MCH RDW Lymph % (Auto) Lymph # Seg Neutrophils % Seg Neuts % (Manual) Lymphocytes % (Manual) Lymphocytes # (Manual) PT INR POC ABG pH POC ABG pO2 Sodium 135 L Potassium 5.8 H D Chloride Carbon Dioxide 20 L BUN 31 H Creatinine 0.3 L Glucose POC Glucose < 40 L Lactic Acid Calcium 7.8 L Phosphorus Total Bilirubin 4.90 H Direct Bilirubin AST 611 H ALT 163 H Alkaline Phosphatase 500 H Ammonia 83.0 H Total Protein 5.1 L Albumin 2.2 L 12/14/18 12/14/18 12/15/18 17:59 23:45 00:21 Hgb Hct MCV MCH RDW Lymph % (Auto) Lymph # Seg Neutrophils % Seg Neuts % (Manual) Lymphocytes % (Manual) Lymphocytes # (Manual) PT INR POC ABG pH POC ABG pO2 Sodium Potassium Chloride Carbon Dioxide BUN Creatinine Glucose 139 H POC Glucose 53 L 49 L Lactic Acid Calcium Phosphorus Total Bilirubin Direct Bilirubin AST ALT Alkaline Phosphatase Ammonia Total Protein Albumin 12/15/18 12/15/18 12/15/18 03:50 04:05 04:05 Hgb 10.6 L Hct 32.4 L MCV 66 L MCH 22 L RDW 20.5 H Lymph % (Auto) Lymph # Seg Neutrophils % Seg Neuts % (Manual) 88.0 H Lymphocytes % (Manual) 7.0 L Lymphocytes # (Manual) 0.6 L PT INR POC ABG pH 7.563 H POC ABG pO2 155 H Sodium Potassium Chloride Carbon Dioxide 20 L BUN 28 H Creatinine < 0.2 L Glucose 58 L POC Glucose Lactic Acid Calcium 8.3 L Phosphorus Total Bilirubin 5.20 H Direct Bilirubin AST 972 H ALT 241 H Alkaline Phosphatase 511 H Ammonia Total Protein 5.4 L Albumin 2.4 L 12/15/18 12/15/18 12/15/18 06:35 09:14 09:54 Hgb Hct MCV MCH RDW Lymph % (Auto) Lymph # Seg Neutrophils % Seg Neuts % (Manual) Lymphocytes % (Manual) Lymphocytes # (Manual) PT INR POC ABG pH 7.530 H POC ABG pO2 160 H 138 H Sodium Potassium Chloride Carbon Dioxide BUN Creatinine Glucose POC Glucose 43 L Lactic Acid Calcium Phosphorus Total Bilirubin Direct Bilirubin AST ALT Alkaline Phosphatase Ammonia Total Protein Albumin 12/15/18 12/15/18 12/15/18 10:15 13:40 19:25 Hgb Hct MCV MCH RDW Lymph % (Auto) Lymph # Seg Neutrophils % Seg Neuts % (Manual) Lymphocytes % (Manual) Lymphocytes # (Manual) PT INR POC ABG pH POC ABG pO2 Sodium Potassium Chloride Carbon Dioxide BUN Creatinine Glucose POC Glucose 123 H Lactic Acid 4.10 H* 2.60 H* Calcium Phosphorus Total Bilirubin Direct Bilirubin AST ALT Alkaline Phosphatase Ammonia Total Protein Albumin 12/15/18 12/16/18 12/16/18 21:22 00:23 00:37 Hgb Hct MCV MCH RDW Lymph % (Auto) Lymph # Seg Neutrophils % Seg Neuts % (Manual) Lymphocytes % (Manual) Lymphocytes # (Manual) PT INR POC ABG pH POC ABG pO2 Sodium Potassium Chloride Carbon Dioxide BUN Creatinine Glucose 282 H POC Glucose 41 L Lactic Acid 2.80 H* Calcium Phosphorus Total Bilirubin Direct Bilirubin AST ALT Alkaline Phosphatase Ammonia Total Protein Albumin 12/16/18 12/16/18 12/16/18 01:10 03:33 12:20 Hgb Hct MCV MCH RDW Lymph % (Auto) Lymph # Seg Neutrophils % Seg Neuts % (Manual) Lymphocytes % (Manual) Lymphocytes # (Manual) PT INR POC ABG pH 7.328 L POC ABG pO2 118 H Sodium Potassium Chloride Carbon Dioxide BUN Creatinine Glucose POC Glucose 156 H 216 H Lactic Acid Calcium Phosphorus Total Bilirubin Direct Bilirubin AST ALT Alkaline Phosphatase Ammonia Total Protein Albumin Chest x-ray: image reviewed (ETT in good position; RLL nodule) Allied health notes reviewed: nursing
[2018-12-16 16:17] LABS: Alanine Aminotransferase 261 units/L (7-56); BUN/Creatinine Ratio 53; Blood Urea Nitrogen 32 mg/dL (9-20); Calcium 7.7 mg/dL (8.4-10.2); Hemolysis Index 0
[2018-12-16] MEDS: NACL 0.9% 1000 ML 1,000 ML IV SCH (20:03)
[2018-12-16] MEDS: HumuLIN R SUB-Q SCH (20:04)
[2018-12-16] MEDS: PEPCID PO SCH (21:48)
[2018-12-16] MEDS ORDERED: NACL 0.9% 500 ML 500 ML IV ONE (21:56)
[2018-12-16] MEDS ORDERED: LOVENOX SUB-Q SCH (22:00)
[2018-12-17] MEDS: HumuLIN R SUB-Q SCH ×5 (00:34→23:56)
[2018-12-17] MEDS: VANCOMYCIN 750 MG in NACL 0.9% 250ML 250 ML IV SCH ×3 (00:35→23:57)
--- NOTE | 2018-12-17 03:11 | XRay Report ---
CHEST 1 VIEW INDICATION / CLINICAL INFORMATION: follow up respiratory failure. COMPARISON: 12/16/2018 FINDINGS: SUPPORT DEVICES: Stable, satisfactory device positioning. HEART / MEDIASTINUM: No significant abnormality. LUNGS / PLEURA: No significant pulmonary or pleural abnormality. No pneumothorax. ADDITIONAL FINDINGS: No significant additional findings. IMPRESSION: 1. No acute findings. Signer Name: Uday Marques MD Signed: 12/17/2018 3:07 AM Workstation Name: [email or web address] CHEST 1 VIEW INDICATION / CLINICAL INFORMATION: follow up respiratory failure. COMPARISON: None available. FINDINGS: SUPPORT DEVICES: None. HEART / MEDIASTINUM: No significant abnormality. LUNGS / PLEURA: No significant pulmonary or pleural abnormality. No pneumothorax. ADDITIONAL FINDINGS: No significant additional findings. IMPRESSION: 1. No acute findings.
[2018-12-17] MEDS ORDERED: NACL 0.9% 500 ML 500 ML IV ONE ×2 (05:39→05:42)
[2018-12-17] MEDS: ZOSYN/NS 4.5GM/100ML 4.5 GM/100 ML VIAL IV SCH ×3 (08:21→20:27)
[2018-12-17] MEDS: NACL 0.9% 1000 ML 1,000 ML IV SCH ×2 (08:24→18:27)
[2018-12-17] MEDS: PEPCID PO SCH ×3 (10:29→21:15)
[2018-12-17] MEDS: SODIUM CHLORIDE FLUSH SYRINGE 10 ML IV SCH ×4 (10:41→22:29)
--- NOTE | 2018-12-17 11:54 | Progress Note ---
Assessment and Plan Acute Hypoxemic Respiratory failure on MVS Severe hypoglycemia Lactic acidosis probably secondary to hypoperfusion Acute metabolic encephalopathy Protein-calorie malnutrition (severe) Right lower lobe lung mass h/o metastatic malignancy Liver failure( elevated Bilirubin, liver enzymes, elevated INR, hypoglycemia) Coagulopathy( probably secondary to liver failure and malnutrition) Microcytic anemia (I had an extended discussion with parents and family and initial goal is aggressive care and resuscitation) - will get oncology as requested by Dad so he can get a second opinion re: prognosis - Continue with full MVS acutely - VAP bundle addressed / Aspiration precautions, HOB >40 - continue supplemental oxygen wean to O2 sats >90% - daily SATs and SBTs assessment per protocol and as tolerated - continue enteral nutrition; advance to goal rate per dividend deposit voucher clerk's rec's - stopped dextrose infusion - continue glycemic control with q6h accuchecks and SSI for target BG 140-180 mg/dl - Vasopressor support as indicated to keep MAP>65 - DE-escalate AB's based on clinical and microbiologic data (So far patient does not clinically have a focus of infection, it appears that his hypothermia and encephalopathy is probably related to hypoglycemia and metastatic liver disease ) - continue mobility protocols and off loading to prevent pressure ulcer - Monitor intake and output closely - continue lactulose for hepatic encephalopathy - continue to monitor for bleeding - continue to trend lactate levels (With liver failure, lactic acidosis may persist for a longer period) - Follow cultures and de-escalate based on microbiology and clinical data - CRP of 7.5 is equivocal, continue to trend lactate to aid clinical decision making / AB's de-escalation - VTE prophylaxis (SCDs for now, elevated INR) - Stress ulcer prophylaxis - Maintenance of sleep -wake cycle, avoid ICU psychosis/delirium PROGNOSIS: GUARDED-POOR CONDITION: CRITICAL CODE STATUS: FULL CODE The high probability of a clinically significant, sudden or life-threatening deterioration of the [respiratory, neurology, GI systems required my full and direct attention, intervention and personal management. The aggregate critical care time was [35] minutes without overlap. Time includes spent on; [x] Data Review and interpretation [x] Patient assessment and monitoring of vital signs [x] Documentation [x] Medication orders and management Subjective Date of service: 12/17/18 Principal diagnosis: Ac Hypoxemic Resp failure; Severe hypoglycemia; Ac encephalopathy; Colon CA Interval history: Patient is seen today for: Ac Hypoxemic Resp failure; Severe hypoglycemia; Lactic acidosis; Ac met encephalopathy; Protein-calorie malnutrition (severe); RLL lung mass; h/o metastatic Colon CA; Liver failure (elevated Bilirubin, liver enzymes, elevated INR, hypoglycemia); Coagulopathy; Microcytic anemia Seen and examined at bedside; 24hour events reviewed; nursing and respiratory care staff consulted; no adverse overnight events reported to me; resting peacefully in bed; remains on MVS; attempts to open eyes to name calling; blood sugars better; no bleeding; still hemodynamically labile; father visited today and curious about cancer treatment Objective Vital Signs - 12hr 12/17/18 12/17/18 12/17/18 00:00 00:11 00:21 Temperature Pulse Rate 120 H 123 H 117 H Pulse Rate [ 120 H From Monitor] Respiratory 15 15 15 Rate Blood Pressure 89/57 87/55 90/57 O2 Sat by Pulse 100 100 100 Oximetry 12/17/18 12/17/18 12/17/18 00:30 00:32 00:41 Temperature Pulse Rate 120 H 119 H Pulse Rate [ 116 H From Monitor] Respiratory 15 15 15 Rate Blood Pressure 91/57 91/57 O2 Sat by Pulse 100 100 100 Oximetry 12/17/18 12/17/18 12/17/18 00:51 01:00 01:11 Temperature Pulse Rate 117 H 117 H 116 H Pulse Rate [ From Monitor] Respiratory 15 15 15 Rate Blood Pressure 89/56 89/56 87/53 O2 Sat by Pulse 100 100 100 Oximetry 12/17/18 12/17/18 12/17/18 01:21 01:30 01:41 Temperature Pulse Rate 116 H 114 H 113 H Pulse Rate [ From Monitor] Respiratory 15 15 15 Rate Blood Pressure 89/56 89/55 89/55 O2 Sat by Pulse 100 100 100 Oximetry 12/17/18 12/17/18 12/17/18 01:51 02:00 02:11 Temperature Pulse Rate 113 H 116 H 125 H Pulse Rate [ From Monitor] Respiratory 15 15 15 Rate Blood Pressure 87/57 88/59 88/59 O2 Sat by Pulse 100 100 100 Oximetry 12/17/18 12/17/18 12/17/18 02:21 02:30 02:41 Temperature Pulse Rate 117 H 118 H 115 H Pulse Rate [ From Monitor] Respiratory 15 15 15 Rate Blood Pressure 93/59 81/57 81/57 O2 Sat by Pulse 100 100 100 Oximetry 12/17/18 12/17/18 12/17/18 02:51 03:00 03:11 Temperature Pulse Rate 117 H 116 H 114 H Pulse Rate [ From Monitor] Respiratory 15 15 15 Rate Blood Pressure 82/55 90/57 90/57 O2 Sat by Pulse 100 100 100 Oximetry 12/17/18 12/17/18 12/17/18 03:21 03:24 03:30 Temperature Pulse Rate 116 H 118 H 117 H Pulse Rate [ From Monitor] Respiratory 15 15 Rate Blood Pressure 94/59 90/57 85/58 O2 Sat by Pulse 100 100 100 Oximetry 12/17/18 12/17/18 12/17/18 03:41 03:51 04:00 Temperature Pulse Rate 116 H 119 H 126 H Pulse Rate [ 110 H From Monitor] Respiratory 15 15 15 Rate Blood Pressure 85/58 84/55 94/63 O2 Sat by Pulse 100 100 100 Oximetry 12/17/18 12/17/18 12/17/18 04:11 04:21 04:30 Temperature Pulse Rate 119 H 129 H 124 H Pulse Rate [ From Monitor] Respiratory 15 14 15 Rate Blood Pressure 94/63 86/59 76/52 O2 Sat by Pulse 100 99 100 Oximetry 12/17/18 12/17/18 12/17/18 04:41 04:51 05:00 Temperature Pulse Rate 112 H 111 H 110 H Pulse Rate [ From Monitor] Respiratory 15 15 15 Rate Blood Pressure 75/49 83/51 77/53 O2 Sat by Pulse 100 100 100 Oximetry 12/17/18 12/17/18 12/17/18 05:11 05:21 05:30 Temperature Pulse Rate 110 H 107 H 109 H Pulse Rate [ From Monitor] Respiratory 15 15 15 Rate Blood Pressure 86/59 86/55 81/53 O2 Sat by Pulse 100 100 100 Oximetry 12/17/18 12/17/18 12/17/18 05:41 05:51 06:00 Temperature Pulse Rate 109 H 113 H 112 H Pulse Rate [ From Monitor] Respiratory 15 20 15 Rate Blood Pressure 77/53 86/53 89/52 O2 Sat by Pulse 100 100 100 Oximetry 12/17/18 12/17/18 12/17/18 06:11 06:21 06:30 Temperature Pulse Rate 109 H 109 H 109 H Pulse Rate [ From Monitor] Respiratory 15 15 15 Rate Blood Pressure 81/53 73/47 83/53 O2 Sat by Pulse 100 100 100 Oximetry 12/17/18 12/17/18 12/17/18 06:41 06:51 07:00 Temperature Pulse Rate 112 H 111 H 108 H Pulse Rate [ From Monitor] Respiratory 15 15 16 Rate Blood Pressure 83/53 79/50 86/49 O2 Sat by Pulse 100 100 100 Oximetry 12/17/18 12/17/18 12/17/18 07:11 07:21 07:30 Temperature Pulse Rate 114 H 110 H 109 H Pulse Rate [ From Monitor] Respiratory 15 15 15 Rate Blood Pressure 86/49 80/49 85/52 O2 Sat by Pulse 100 100 100 Oximetry 12/17/18 12/17/18 12/17/18 07:33 07:41 07:51 Temperature Pulse Rate 108 H 112 H 117 H Pulse Rate [ From Monitor] Respiratory 15 29 H Rate Blood Pressure 86/49 85/52 83/51 O2 Sat by Pulse 100 100 100 Oximetry 12/17/18 12/17/18 12/17/18 08:00 08:11 08:21 Temperature 98.3 F Pulse Rate 112 H 118 H 111 H Pulse Rate [ 112 H From Monitor] Respiratory 15 13 15 Rate Blood Pressure 88/53 83/51 88/55 O2 Sat by Pulse 100 100 100 Oximetry 12/17/18 12/17/18 12/17/18 08:30 08:40 08:50 Temperature Pulse Rate 114 H 112 H 116 H Pulse Rate [ From Monitor] Respiratory 14 15 14 Rate Blood Pressure 84/55 88/55 91/54 O2 Sat by Pulse 100 100 100 Oximetry 12/17/18 12/17/18 12/17/18 09:00 09:10 09:20 Temperature Pulse Rate 111 H 111 H 112 H Pulse Rate [ From Monitor] Respiratory 15 14 15 Rate Blood Pressure 91/54 85/50 91/53 O2 Sat by Pulse 100 100 100 Oximetry 12/17/18 12/17/18 12/17/18 09:30 09:40 09:50 Temperature Pulse Rate 110 H 113 H 113 H Pulse Rate [ From Monitor] Respiratory 15 15 13 Rate Blood Pressure 91/53 87/56 88/53 O2 Sat by Pulse 100 100 100 Oximetry 12/17/18 12/17/18 12/17/18 10:00 10:10 10:20 Temperature Pulse Rate 112 H 112 H 127 H Pulse Rate [ From Monitor] Respiratory 14 15 16 Rate Blood Pressure 85/54 88/53 87/55 O2 Sat by Pulse 100 100 100 Oximetry 12/17/18 12/17/18 12/17/18 10:30 10:40 10:50 Temperature Pulse Rate 114 H 113 H 113 H Pulse Rate [ From Monitor] Respiratory 15 22 15 Rate Blood Pressure 84/53 84/53 85/54 O2 Sat by Pulse 100 100 100 Oximetry 12/17/18 11:00 Temperature Pulse Rate 112 H Pulse Rate [ From Monitor] Respiratory 15 Rate Blood Pressure 86/56 O2 Sat by Pulse 100 Oximetry Constitutional: no acute distress, other (cachectic looking AAM, with temporal wasting riding the ventilator without obvious distress) Eyes: icteric ENT: oropharynx moist, other (ETT 24 cm [id number]) Neck: supple, no lymphadenopathy, no JVD Effort: mildly labored Ascultation: Bilateral: diminished breath sounds, rhonchi (scant) Percussion: Bilateral: not dull Cardiovascular: regular rate and rhythm Gastrointestinal: hypoactive bowel sounds, soft, non-tender, other (distended) Integumentary: other (poor turgor) Extremities: no cyanosis, pulses normal, no ischemia or petechiae, edema Neurologic: pupils equal and round, other (near obtunded; attempts to open eyes to name calling) Psychiatric: other (unable to assess) CBC and BMP: 12/18/18 05:00 12/18/18 05:00 ABG, PT/INR, D-dimer: ABG POC ABG pH 7.375 (7.35-7.45) 12/17/18 03:24 POC ABG pCO2 34.5 (35-45) L 12/17/18 03:24 POC ABG pO2 118 (80-105) H 12/17/18 03:24 POC ABG HCO3 20.2 (22-26 mml/L) 12/17/18 03:24 POC ABG Total CO2 21 (23-27mmol/L) 12/17/18 03:24 POC ABG O2 Sat 99 12/17/18 03:24 PT/INR, D-dimer PT 24.2 Sec. (12.2-14.9) H 12/14/18 12:19 INR 2.22 (0.87-1.13) H 12/14/18 12:19 Abnormal lab findings: Abnormal Labs 12/14/18 12/14/18 12/14/18 12:05 12:19 12:19 Hgb Hct MCV MCH RDW Lymph % (Auto) Lymph # Seg Neutrophils % Seg Neuts % (Manual) Lymphocytes % (Manual) Lymphocytes # (Manual) PT 24.2 H INR 2.22 H POC ABG pH POC ABG pCO2 POC ABG pO2 Sodium Potassium Chloride Carbon Dioxide BUN Creatinine Glucose POC Glucose 61 L Lactic Acid Calcium Phosphorus 5.10 H Total Bilirubin Direct Bilirubin AST ALT Alkaline Phosphatase Ammonia C-Reactive Protein Total Protein Albumin 12/14/18 12/14/18 12/14/18 12:20 12:28 13:58 Hgb 8.8 L Hct 27.0 L MCV 67 L MCH 22 L RDW 21.3 H Lymph % (Auto) 6.9 L Lymph # 0.5 L Seg Neutrophils % 87.1 H Seg Neuts % (Manual) Lymphocytes % (Manual) Lymphocytes # (Manual) PT INR POC ABG pH POC ABG pCO2 POC ABG pO2 Sodium 129 L Potassium Chloride 95.5 L Carbon Dioxide 21 L BUN 32 H Creatinine 0.5 L Glucose 411 H POC Glucose 61 L Lactic Acid Calcium 7.3 L Phosphorus Total Bilirubin 4.20 H Direct Bilirubin 3.4 H AST 405 H ALT 109 H Alkaline Phosphatase 438 H Ammonia C-Reactive Protein Total Protein 4.4 L Albumin 2.0 L 12/14/18 12/14/18 12/14/18 13:59 14:38 17:41 Hgb Hct MCV MCH RDW Lymph % (Auto) Lymph # Seg Neutrophils % Seg Neuts % (Manual) Lymphocytes % (Manual) Lymphocytes # (Manual) PT INR POC ABG pH POC ABG pCO2 POC ABG pO2 Sodium 135 L Potassium 5.8 H D Chloride Carbon Dioxide 20 L BUN 31 H Creatinine 0.3 L Glucose POC Glucose < 40 L Lactic Acid Calcium 7.8 L Phosphorus Total Bilirubin 4.90 H Direct Bilirubin AST 611 H ALT 163 H Alkaline Phosphatase 500 H Ammonia 83.0 H C-Reactive Protein Total Protein 5.1 L Albumin 2.2 L 12/14/18 12/14/18 12/15/18 17:59 23:45 00:21 Hgb Hct MCV MCH RDW Lymph % (Auto) Lymph # Seg Neutrophils % Seg Neuts % (Manual) Lymphocytes % (Manual) Lymphocytes # (Manual) PT INR POC ABG pH POC ABG pCO2 POC ABG pO2 Sodium Potassium Chloride Carbon Dioxide BUN Creatinine Glucose 139 H POC Glucose 53 L 49 L Lactic Acid Calcium Phosphorus Total Bilirubin Direct Bilirubin AST ALT Alkaline Phosphatase Ammonia C-Reactive Protein Total Protein Albumin 12/15/18 12/15/18 12/15/18 03:50 04:05 04:05 Hgb 10.6 L Hct 32.4 L MCV 66 L MCH 22 L RDW 20.5 H Lymph % (Auto) Lymph # Seg Neutrophils % Seg Neuts % (Manual) 88.0 H Lymphocytes % (Manual) 7.0 L Lymphocytes # (Manual) 0.6 L PT INR POC ABG pH 7.563 H POC ABG pCO2 POC ABG pO2 155 H Sodium Potassium Chloride Carbon Dioxide 20 L BUN 28 H Creatinine < 0.2 L Glucose 58 L POC Glucose Lactic Acid Calcium 8.3 L Phosphorus Total Bilirubin 5.20 H Direct Bilirubin AST 972 H ALT 241 H Alkaline Phosphatase 511 H Ammonia C-Reactive Protein Total Protein 5.4 L Albumin 2.4 L 12/15/18 12/15/18 12/15/18 06:35 09:14 09:54 Hgb Hct MCV MCH RDW Lymph % (Auto) Lymph # Seg Neutrophils % Seg Neuts % (Manual) Lymphocytes % (Manual) Lymphocytes # (Manual) PT INR POC ABG pH 7.530 H POC ABG pCO2 POC ABG pO2 160 H 138 H Sodium Potassium Chloride Carbon Dioxide BUN Creatinine Glucose POC Glucose 43 L Lactic Acid Calcium Phosphorus Total Bilirubin Direct Bilirubin AST ALT Alkaline Phosphatase Ammonia C-Reactive Protein Total Protein Albumin 12/15/18 12/15/18 12/15/18 10:15 13:40 19:25 Hgb Hct MCV MCH RDW Lymph % (Auto) Lymph # Seg Neutrophils % Seg Neuts % (Manual) Lymphocytes % (Manual) Lymphocytes # (Manual) PT INR POC ABG pH POC ABG pCO2 POC ABG pO2 Sodium Potassium Chloride Carbon Dioxide BUN Creatinine Glucose POC Glucose 123 H Lactic Acid 4.10 H* 2.60 H* Calcium Phosphorus Total Bilirubin Direct Bilirubin AST ALT Alkaline Phosphatase Ammonia C-Reactive Protein Total Protein Albumin 12/15/18 12/16/18 12/16/18 21:22 00:23 00:37 Hgb Hct MCV MCH RDW Lymph % (Auto) Lymph # Seg Neutrophils % Seg Neuts % (Manual) Lymphocytes % (Manual) Lymphocytes # (Manual) PT INR POC ABG pH POC ABG pCO2 POC ABG pO2 Sodium Potassium Chloride Carbon Dioxide BUN Creatinine Glucose 282 H POC Glucose 41 L Lactic Acid 2.80 H* Calcium Phosphorus Total Bilirubin Direct Bilirubin AST ALT Alkaline Phosphatase Ammonia C-Reactive Protein Total Protein Albumin 12/16/18 12/16/18 12/16/18 01:10 03:33 06:25 Hgb Hct MCV MCH RDW Lymph % (Auto) Lymph # Seg Neutrophils % Seg Neuts % (Manual) Lymphocytes % (Manual) Lymphocytes # (Manual) PT INR POC ABG pH 7.328 L POC ABG pCO2 POC ABG pO2 118 H Sodium Potassium Chloride Carbon Dioxide BUN Creatinine Glucose POC Glucose 156 H 166 H Lactic Acid Calcium Phosphorus Total Bilirubin Direct Bilirubin AST ALT Alkaline Phosphatase Ammonia C-Reactive Protein Total Protein Albumin 12/16/18 12/16/18 12/16/18 12:20 15:14 15:14 Hgb Hct MCV MCH RDW Lymph % (Auto) Lymph # Seg Neutrophils % Seg Neuts % (Manual) Lymphocytes % (Manual) Lymphocytes # (Manual) PT INR POC ABG pH POC ABG pCO2 POC ABG pO2 Sodium Potassium Chloride Carbon Dioxide BUN Creatinine Glucose POC Glucose 216 H Lactic Acid 6.50 H* Calcium Phosphorus Total Bilirubin Direct Bilirubin AST ALT Alkaline Phosphatase Ammonia C-Reactive Protein 7.50 H Total Protein Albumin 12/16/18 12/16/18 12/16/18 15:14 15:14 16:46 Hgb Hct MCV MCH RDW Lymph % (Auto) Lymph # Seg Neutrophils % Seg Neuts % (Manual) Lymphocytes % (Manual) Lymphocytes # (Manual) PT INR POC ABG pH POC ABG pCO2 POC ABG pO2 Sodium 135 L Potassium Chloride Carbon Dioxide 19 L BUN 32 H Creatinine 0.6 L D Glucose 219 H POC Glucose Lactic Acid 6.40 H* Calcium 7.7 L Phosphorus Total Bilirubin 5.10 H Direct Bilirubin AST 791 H ALT 261 H Alkaline Phosphatase 453 H Ammonia 91.0 H C-Reactive Protein Total Protein 4.7 L Albumin 2.0 L 12/16/18 12/16/18 12/16/18 18:59 20:09 23:48 Hgb Hct MCV MCH RDW Lymph % (Auto) Lymph # Seg Neutrophils % Seg Neuts % (Manual) Lymphocytes % (Manual) Lymphocytes # (Manual) PT INR POC ABG pH POC ABG pCO2 POC ABG pO2 Sodium Potassium Chloride Carbon Dioxide BUN Creatinine Glucose POC Glucose 309 H Lactic Acid 6.20 H* 5.20 H* Calcium Phosphorus Total Bilirubin Direct Bilirubin AST ALT Alkaline Phosphatase Ammonia C-Reactive Protein Total Protein Albumin 12/17/18 12/17/18 12/17/18 00:30 03:24 05:58 Hgb Hct MCV MCH RDW Lymph % (Auto) Lymph # Seg Neutrophils % Seg Neuts % (Manual) Lymphocytes % (Manual) Lymphocytes # (Manual) PT INR POC ABG pH POC ABG pCO2 34.5 L POC ABG pO2 118 H Sodium Potassium Chloride Carbon Dioxide BUN Creatinine Glucose POC Glucose 186 H Lactic Acid 3.90 H* Calcium Phosphorus Total Bilirubin Direct Bilirubin AST ALT Alkaline Phosphatase Ammonia C-Reactive Protein Total Protein Albumin 12/17/18 12/17/18 07:00 11:51 Hgb Hct MCV MCH RDW Lymph % (Auto) Lymph # Seg Neutrophils % Seg Neuts % (Manual) Lymphocytes % (Manual) Lymphocytes # (Manual) PT INR POC ABG pH POC ABG pCO2 POC ABG pO2 Sodium Potassium Chloride Carbon Dioxide BUN Creatinine Glucose POC Glucose 173 H Lactic Acid 3.10 H* Calcium Phosphorus Total Bilirubin Direct Bilirubin AST ALT Alkaline Phosphatase Ammonia C-Reactive Protein Total Protein Albumin Chest x-ray: image reviewed (ETT in good position; no focal infiltrate) Allied health notes reviewed: nursing
--- NOTE | 2018-12-17 12:09 | Progress Note ---
Assessment and Plan Assessment and plan: Septic shock. Maintain pressors as needed. Continue IV fluid hydration. Continue IV antibiotics. Consider ID consultation Acute hypoxemic respiratory failure. Patient orally intubated on mechanical ventilation. Wean vent as tolerated, daily SBT, ABG, suupportive care. Pulmonary consulted and following. Primary cancer of unknown source. Metastatic Neoplasm with Unknown primary. Patient was previously on hospice. This designation apparently has been revoked. We will attempt to have continued discussed with the family. Father's number [phone]. Pulmonary with extended discussion regarding aggressive care and resuscitation. Coagulopathy. Etiology likely secondary to liver failure and malnutrition. Toxic metabolic encephalopathy. Also hepatic etiology. Continue lactulose. CT scan negative. Etiology secondary to sepsis and hypoglycemia. Hepatic failure. Etiology likely secondary to metastatic disease, pain control supportive care. Hypoglycemia. Cont. tube feedings. D50 as needed Poor prognosis. The high probability of a clinically significant, sudden or life threatening deterioration of the [respiratory, hepatic and neurological] system(s) required my full and direct attention, intervention and personal management. The aggregate critical care time was [32] minutes. This time is in addition to time spent performing reported procedures but includes the following: [x] Data Review and interpretation [x] Patient assessment and monitoring of vital signs [x] Documentation [x] Medication orders and management History Interval history: No new issues overnight. Hospitalist Physical - Constitutional Vitals: Temp Pulse Resp BP Pulse Ox 98.3 F 112 H 15 86/56 100 12/17/18 08:00 12/17/18 11:00 12/17/18 11:00 12/17/18 11:00 12/17/18 11:00 General appearance: Present: severe distress, other (orally intubated) - EENT Eyes: Present: PERRL, EOM intact ENT: hearing intact, clear oral mucosa, dentition normal - Neck Neck: Present: supple, normal ROM - Respiratory Respiratory effort: normal Respiratory: bilateral: CTA - Cardiovascular Rhythm: regular Heart Sounds: Present: S1 & S2. Absent: gallop, rub - Extremities Extremities: no ischemia, No edema, Full ROM - Abdominal General gastrointestinal: soft, non-tender, non-distended, normal bowel sounds - Integumentary Integumentary: Present: clear, warm, dry - Neurologic Neurologic: CNII-XII intact, moves all extremities Results - Labs CBC & Chem 7: 12/15/18 04:05 12/16/18 15:14 Labs: Laboratory Last Values WBC 8.3 K/mm3 (4.5-11.0) 12/15/18 04:05 RBC 4.90 M/mm3 (3.65-5.03) 12/15/18 04:05 Hgb 10.6 gm/dl (11.8-15.2) L 12/15/18 04:05 Hct 32.4 % (35.5-45.6) L 12/15/18 04:05 MCV 66 fl (84-94) L 12/15/18 04:05 MCH 22 pg (28-32) L 12/15/18 04:05 MCHC 33 % (32-34) 12/15/18 04:05 RDW 20.5 % (13.2-15.2) H 12/15/18 04:05 Plt Count 209 K/mm3 (140-440) 12/15/18 04:05 Lymph % (Auto) 6.9 % (13.4-35.0) L 12/14/18 12:28 Coal % (Auto) [employer] Lead 12/15/18 04:05 Eos % (Auto) 0.1 % (0.0-4.3) 12/14/18 12:28 Baso % (Auto) 0.2 % (0.0-1.8) 12/14/18 12:28 Lymph # 0.5 K/mm3 (1.2-5.4) L 12/14/18 12:28 Coal # 0.4 K/mm3 (0.0-0.8) 12/14/18 12:28 Eos # 0.0 K/mm3 (0.0-0.4) 12/14/18 12:28 Baso # 0.0 K/mm3 (0.0-0.1) 12/14/18 12:28 Add Manual Diff Complete 12/15/18 04:05 Total Counted 100 12/15/18 04:05 Seg Neutrophils % 87.1 % (40.0-70.0) H 12/14/18 12:28 Seg Neuts % (Manual) 88.0 % (40.0-70.0) H 12/15/18 04:05 2.0 % 12/15/18 04:05 7.0 % (13.4-35.0) L 12/15/18 04:05 Reactive Lymphs % (Man) 0 % 12/15/18 04:05 3.0 % (0.0-7.3) 12/15/18 04:05 0 % (0.0-4.3) 12/15/18 04:05 0 % (0.0-1.8) 12/15/18 04:05 0 % 12/15/18 04:05 0 % 12/15/18 04:05 0 % 12/15/18 04:05 0 % 12/15/18 04:05 Nucleated RBC % Not Reportable 12/15/18 04:05 Seg Neutrophils # 6.5 K/mm3 (1.8-7.7) 12/14/18 12:28 Seg Neutrophils # Man 7.3 K/mm3 (1.8-7.7) 12/15/18 04:05 Band Neutrophils # 0.2 K/mm3 12/15/18 04:05 0.6 K/mm3 (1.2-5.4) L 12/15/18 04:05 Abs React Lymphs (Man) 0.0 K/mm3 12/15/18 04:05 0.2 K/mm3 (0.0-0.8) 12/15/18 04:05 0.0 K/mm3 (0.0-0.4) 12/15/18 04:05 0.0 K/mm3 (0.0-0.1) 12/15/18 04:05 0.0 K/mm3 12/15/18 04:05 0.0 K/mm3 12/15/18 04:05 0.0 K/mm3 12/15/18 04:05 Blast Cells # 0.0 K/mm3 12/15/18 04:05 WBC Morphology Not Reportable 12/15/18 04:05 Hypersegmented Neuts Not Reportable 12/15/18 04:05 Hyposegmented Neuts Not Reportable 12/15/18 04:05 Hypogranular Neuts Not Reportable 12/15/18 04:05 Not Reportable 12/15/18 04:05 Not Reportable 12/15/18 04:05 Not Reportable 12/15/18 04:05 Not Reportable 12/15/18 04:05 Not Reportable 12/15/18 04:05 Not Reportable 12/15/18 04:05 Consistent w auto 12/15/18 04:05 Not Reportable 12/15/18 04:05 Plt Clumps, EDTA Not Reportable 12/15/18 04:05 Not Reportable 12/15/18 04:05 Not Reportable 12/15/18 04:05 Not Reportable 12/15/18 04:05 Plt Morphology Comment Not Reportable 12/15/18 04:05 RBC Morphology Not Reportable 12/15/18 04:05 Dimorphic RBCs Not Reportable 12/15/18 04:05 Not Reportable 12/15/18 04:05 1+ 12/15/18 04:05 1+ 12/15/18 04:05 2+ 12/15/18 04:05 2+ 12/15/18 04:05 Not Reportable 12/15/18 04:05 Not Reportable 12/15/18 04:05 Not Reportable 12/15/18 04:05 Not Reportable 12/15/18 04:05 1+ 12/15/18 04:05 Rare 12/15/18 04:05 Few 12/15/18 04:05 Not Reportable 12/15/18 04:05 Not Reportable 12/15/18 04:05 Not Reportable 12/15/18 04:05 Not Reportable 12/15/18 04:05 Not Reportable 12/15/18 04:05 Not Reportable 12/15/18 04:05 Few 12/15/18 04:05 Acanthocytes (Spur) Few 12/15/18 04:05 Rouleaux Not Reportable 12/15/18 04:05 Not Reportable 12/15/18 04:05 Not Reportable 12/15/18 04:05 Not Reportable 12/15/18 04:05 Not Reportable 12/15/18 04:05 Hem Pathologist Commnt No 12/15/18 04:05 PT 24.2 Sec. (12.2-14.9) H 12/14/18 12:19 INR 2.22 (0.87-1.13) H 12/14/18 12:19 APTT 32.6 Sec. (24.2-36.6) 12/14/18 12:19 POC ABG pH 7.375 (7.35-7.45) 12/17/18 03:24 POC ABG pCO2 34.5 (35-45) L 12/17/18 03:24 POC ABG pO2 118 (80-105) H 12/17/18 03:24 POC ABG HCO3 20.2 (22-26 mml/L) 12/17/18 03:24 POC ABG Total CO2 21 (23-27mmol/L) 12/17/18 03:24 POC ABG O2 Sat 99 12/17/18 03:24 POC ABG Base Excess -5 ((-2) - (+3)mmol/L) 12/17/18 03:24 25 % 12/17/18 03:24 Sodium 135 mmol/L (137-145) L 12/16/18 15:14 Potassium 4.1 mmol/L (3.6-5.0) 12/16/18 15:14 Chloride 101.0 mmol/L (98-107) 12/16/18 15:14 Carbon Dioxide 19 mmol/L (22-30) L 12/16/18 15:14 19 mmol/L 12/16/18 15:14 BUN 32 mg/dL (9-20) H 12/16/18 15:14 0.6 mg/dL (0.8-1.5) L D 12/16/18 15:14 Estimated GFR > 60 ml/min 12/16/18 15:14 53 % 12/16/18 15:14 Glucose 219 mg/dL (75-100) H 12/16/18 15:14 POC Glucose 173 (70-105) H 12/17/18 11:51 Lactic Acid 3.10 mmol/L (0.7-2.0) H* 12/17/18 07:00 Calcium 7.7 mg/dL (8.4-10.2) L 12/16/18 15:14 Phosphorus 5.10 mg/dL (2.5-4.5) H 12/14/18 12:19 Magnesium 2.00 mg/dL (1.7-2.3) 12/14/18 12:20 5.10 mg/dL (0.1-1.2) H 12/16/18 15:14 3.4 mg/dL (0-0.2) H 12/14/18 12:20 0.8 mg/dL 12/14/18 12:20 AST 791 units/L (5-40) H 12/16/18 15:14 ALT 261 units/L (7-56) H 12/16/18 15:14 453 units/L (35-129) H 12/16/18 15:14 91.0 umol/L (25-60) H 12/16/18 15:14 < 0.010 ng/mL (0.00-0.029) 12/14/18 12:19 7.50 mg/dL (0.00-1.30) H 12/16/18 15:14 NT-Pro-B Natriuret Pep 567.7 pg/mL (0-900) 12/14/18 12:20 4.7 g/dL (6.3-8.2) L 12/16/18 15:14 2.0 g/dL (3.9-5) L 12/16/18 15:14 0.7 % 12/16/18 15:14 Active Medications - Current Medications Current Medications: Generic Name Dose Route Start Last Admin Trade Name Freq PRN Reason Stop Dose Admin Albuterol 2.5 mg 12/14/18 18:46 Proventil IH Q3HRT PRN Shortness Of Breath Lipase/Protease/Amylase 1 each 12/15/18 10:17 Pancreaze 10,500 Unit FEEDTUBE PRN PRN For Clogged Feeding Tube Dextrose 50 ml 12/16/18 00:31 D50w (25gm) Syringe IV PRN PRN Hypoglycemia Famotidine 20 mg 12/16/18 16:00 12/17/18 10:29 Pepcid PO 20 mg BID DAMON Administration Fentanyl 50 mcg 12/14/18 19:53 Sublimaze IV Q10MIN PRN ANALGESIA Hydrophilic Ointment 1 applic 12/14/18 12:16 12/14/18 15:31 Vaseline Lip Therapy TP 1 applic Q2HR PRN Administration Dry Lips Fentanyl Citrate 2,000 mcg in 100 mls @ 2.574 mls/hr 12/14/18 20:00 12/17/18 08:00 Fentanyl Drip Premix IV 0 mcg/kg/hr TITR DAMON 0 mls/hr Titration Protocol 1 MCG/KG/HR Piperacillin Sod/Tazobactam Sod 4.5 gm in 100 mls @ 200 mls/hr 12/15/18 12:00 12/17/18 11:34 Zosyn/Ns 4.5gm/100ml IV 200 mls/hr Q8H DAMON Administration Protocol Vancomycin HCl 750 mg/ Sodium 265 mls @ 176.667 mls/hr 12/16/18 00:00 12/17/18 00:35 Chloride IV 176.667 mls/hr Q12H DAMON Administration Sodium Chloride 1,000 mls @ 100 mls/hr 12/16/18 20:00 12/17/18 08:24 Nacl 0.9% 1000 Ml IV 100 mls/hr DIRECT DAMON Administration Insulin Human Regular 0 units 12/16/18 20:00 12/17/18 08:27 Humulin R SUB-Q Not Given Q6HR [facility] Protocol Lactulose 20 gm 12/17/18 12:00 Cephulac PO 12/20/18 06:01 Q6HR DAMON Morphine Sulfate 2 mg 12/14/18 18:46 Morphine IV Q2H PRN Pain, Moderate (4-6) Multi-Ingred Cream/Lotion/Oil/Oint 1 applic 12/14/18 12:16 12/14/18 15:31 Artificial Tears Ophth Oint OU 1 applic Q4HR PRN Administration Dry Eye(s) Simple Syrup 15 ml 12/15/18 10:17 Simple Syrup FEEDTUBE PRN PRN Hypoglycemia Simple Syrup 30 ml 12/15/18 10:17 Simple Syrup FEEDTUBE PRN PRN Hypoglycemia Sodium Bicarbonate 325 mg 12/15/18 10:17 Sodium Bicarbonate FEEDTUBE PRN PRN For Clogged Feeding Tube Sodium Chloride 10 ml 12/14/18 22:00 12/17/18 10:41 Sodium Chloride Flush Syringe 10 Ml IV 10 ml BID DAMON Administration Sodium Chloride 10 ml 12/14/18 18:46 Sodium Chloride Flush Syringe 10 Ml IV PRN PRN LINE FLUSH Nutrition/Malnutrition Assess - Dietary Evaluation Nutrition/Malnutrition Findings: Nutrition Notes Start: 12/15/18 10:49 Freq: Status: Active Protocol: Document 12/17/18 10:27 LP (Rec: 12/17/18 10:33 LP [id number]) Nutrition Notes Initial or Follow up Reassessment Current Diagnosis Respiratory Failure Other Pertinent Diagnosis Encephalopathy, Hepatic failure, Malignant neoplasm Current Diet Osmolite 1.5 at 50ml/hr Labs/Tests 12/16/18 Na 135 BUN 32 Bili 5.10 Pertinent Medications Reviewed Height 5 ft 5 in Weight 51.483 kg [place] Body Weight (kg) 61.81 BMI 18.8 Subjective/Other Information Pt with severe temporal wasting. Pt tolerating TF at goal rate. Pt was on hospice and family cancelled. Percent of energy/protein needs met: 100%/100% Burn Absent Trauma Absent Minimum of two criteria Yes Energy Intake (severe) < or equal to 50% Estimated Energy Requirement > or equal to 5 days Body Fat Depletion Moderate depletion (severe) Muscle Mass Moderate Depletion (severe) #2 Nutrition Diagnosis Malnutrition Etiology malignant neoplasm As Evidenced by Signs and Symptoms observed severe temporal wasting and muscle mass loss, poor appetite [employer] #1 Nutrition Diagnosis Inadequate oral intake Diagnosis Progress(for reassessment Continues documentation) Is patient on ventilator? Yes Is Patient Ambulatory and/or Out of Bed No REE-([place]-confined to bed) 1548.516 Kcal/Kg value to use for calculation 35 Approximate Energy Requirements Using 1802 kcal/Kg Calculation Used for Recommendations Kcal/kg Additional Notes Pro needs 62-103g (1.2-2g/kg) Fluid needs 1ml/kcal Nutrition Intervention Change Diet Order: TF Nutrition Support: Osmolite 1.5 at 50ml/hr with 150ml water flush q4h. Kcal 1,800 Protein (gm) 75 Fluid (mL) 914 Goal #1 TF tolerance Goal #2 TF (at goal rate) to meet 100% energy and pro needs Goal #3 Wt maintenance Anticipated Discharge Needs: Unable to determine at this time Follow-Up By: 12/20/18 Additional Comments Follow for TF tolerance, labs and wt
[2018-12-17] MEDS: CEPHULAC PO SCH ×3 (12:41→23:56)
--- NOTE | 2018-12-18 02:56 | XRay Report ---
CHEST 1 VIEW INDICATION / CLINICAL INFORMATION: follow up respiratory failure. COMPARISON: 12/17/2018 FINDINGS: SUPPORT DEVICES: The endotracheal tube and nasogastric tube remain in satisfactory position. A new le ft PICC line is been inserted and its tip is in a location consistent with the superior vena cava/rig ht atrial junction. HEART / MEDIASTINUM: No significant abnormality. LUNGS / PLEURA: No significant pulmonary or pleural abnormality. No pneumothorax. ADDITIONAL FINDINGS: No significant additional findings. IMPRESSION: 1. No acute findings. Signer Name: Uday Marques MD Signed: 12/18/2018 2:52 AM Workstation Name: [id number]
[2018-12-18] MEDS: ZOSYN/NS 4.5GM/100ML 4.5 GM/100 ML VIAL IV SCH ×3 (03:18→19:58)
[2018-12-18] MEDS: NACL 0.9% 1000 ML 1,000 ML IV SCH ×2 (04:30→16:34)
[2018-12-18] MEDS: CEPHULAC PO SCH ×4 (05:13→23:25)
[2018-12-18] MEDS: HumuLIN R SUB-Q SCH ×4 (05:14→23:29)
[2018-12-18 05:25] LABS: Basophils % (Auto) 0.1 % (0.0-1.8); Eosinophils % (Auto) 0.1 % (0.0-4.3); Hematocrit 20.2 % (35.5-45.6); Hemoglobin 6.6 gm/dl (11.8-15.2); Lymphocytes # (Auto) 0.5 K/mm3 (1.2-5.4); Lymphocytes % (Auto) 4.9 % (13.4-35.0); Mean Corpuscular HGB Conc 33 % (32-34); Monocytes # (Auto) 0.6 K/mm3 (0.0-0.8); Monocytes % (Auto) 5.6 % (0.0-7.3); Red Blood Count 3.01 M/mm3 (3.65-5.03)
[2018-12-18 05:38] LABS: BUN/Creatinine Ratio 60; Blood Urea Nitrogen 36 mg/dL (9-20); Calcium 7.5 mg/dL (8.4-10.2); Hemolysis Index 0
[2018-12-18 05:39] LABS: Mean Corpuscular Volume 67 fl (84-94); Red Cell Distribution Width 22.3 % (13.2-15.2)
[2018-12-18 05:40] LABS: Platelet Count 87 K/mm3 (140-440)
--- NOTE | 2018-12-18 06:53 | Event Note ---
Date: 12/18/18 hgb 6.6 this morning. Ordered type & screen and 1u PRBC.
[2018-12-18] MEDS: LEVOPHED DRIP 4 MG/NS 250 ML 4 MG/250 ML BAG IV SCH (07:45)
--- NOTE | 2018-12-18 08:30 | Progress Note ---
Assessment and Plan Assessment and plan: Sepsis Septic shock. Maintain pressors as needed. Continue IV fluid hydration. Continue IV antibiotics. Acute hypoxemic respiratory failure. Patient orally intubated on mechanical ventilation. Wean vent as tolerated, daily SBT, ABG, suupportive care. Pulmonary consulted and following. Primary cancer of unknown source. Metastatic Neoplasm with Unknown primary. Patient was previously on hospice. This designation apparently has been revoked. We will attempt to have continued discussed with the family. Father's number [phone]. Pulmonary with extended discussion regarding aggressive care and resuscitation. Coagulopathy. Etiology likely secondary to liver failure and malnutrition. Toxic metabolic encephalopathy. Also hepatic etiology. Continue lactulose. CT scan negative. Etiology secondary to sepsis and hypoglycemia. Hepatic failure. Etiology likely secondary to metastatic disease, pain control supportive care. Hypoglycemia. Cont. tube feedings. D50 as needed Anemia with acute hemoglobin drop. Hgb 6.6. and stool occult blood positive. Transfuse 2 units PRBC, consult GI, Protonix, Vit K subcut since INR elevated Poor prognosis. The high probability of a clinically significant, sudden or life threatening deterioration of the [respiratory, hepatic and neurological] system(s) required my full and direct attention, intervention and personal management. The aggregate critical care time was [33] minutes. This time is in addition to time spent performing reported procedures but includes the following: [x] Data Review and interpretation [x] Patient assessment and monitoring of vital signs [x] Documentation [x] Medication orders and management History Interval history: Still intubated BP low this morning, started on Levophed Hospitalist Physical - Physical exam Narrative exam: Gen: Not in acute distress, lying in bed, malnourished HEENT: Normocephalic, atraumatic Neck: supple, no JVD Heart: S1 and S2 reg, tachycardia, no murmurs, rubs or gallop Lungs: Clear, no crackles or wheeze Abd: soft, non tender, non distended, normal BS Ext: Swollen knees, no clubbing, no cyanosis, Neuro: intubated, minimal responsive - Constitutional Vitals: Temp Pulse Resp BP Pulse Ox 97.2 F L 103 H 22 84/51 99 12/18/18 08:00 12/18/18 07:41 12/18/18 07:41 12/18/18 07:41 12/18/18 07:41 General appearance: Present: other (orally intubated) Results - Labs CBC & Chem 7: 12/18/18 08:15 12/18/18 05:00 Labs: Laboratory Last Values WBC 10.2 K/mm3 (4.5-11.0) 12/18/18 05:00 RBC 3.01 M/mm3 (3.65-5.03) L 12/18/18 05:00 Hgb 6.6 gm/dl (11.8-15.2) L 12/18/18 05:00 Hct 20.2 % (35.5-45.6) L 12/18/18 05:00 MCV 67 fl (84-94) L 12/18/18 05:00 MCH 22 pg (28-32) L 12/18/18 05:00 MCHC 33 % (32-34) 12/18/18 05:00 RDW 22.3 % (13.2-15.2) H 12/18/18 05:00 Plt Count 87 K/mm3 (140-440) L 12/18/18 05:00 Lymph % (Auto) 4.9 % (13.4-35.0) L 12/18/18 05:00 Cameron % (Auto) 5.6 % (0.0-7.3) 12/18/18 05:00 Eos % (Auto) 0.1 % (0.0-4.3) 12/18/18 05:00 Baso % (Auto) 0.1 % (0.0-1.8) 12/18/18 05:00 Lymph # 0.5 K/mm3 (1.2-5.4) L 12/18/18 05:00 Cameron # 0.6 K/mm3 (0.0-0.8) 12/18/18 05:00 Eos # 0.0 K/mm3 (0.0-0.4) 12/18/18 05:00 Baso # 0.0 K/mm3 (0.0-0.1) 12/18/18 05:00 Add Manual Diff Complete 12/15/18 04:05 Total Counted 100 12/15/18 04:05 Seg Neutrophils % 89.3 % (40.0-70.0) H 12/18/18 05:00 Seg Neuts % (Manual) 88.0 % (40.0-70.0) H 12/15/18 04:05 2.0 % 12/15/18 04:05 7.0 % (13.4-35.0) L 12/15/18 04:05 Reactive Lymphs % (Man) 0 % 12/15/18 04:05 3.0 % (0.0-7.3) 12/15/18 04:05 0 % (0.0-4.3) 12/15/18 04:05 0 % (0.0-1.8) 12/15/18 04:05 0 % 12/15/18 04:05 0 % 12/15/18 04:05 0 % 12/15/18 04:05 0 % 12/15/18 04:05 Nucleated RBC % Not Reportable 12/15/18 04:05 Seg Neutrophils # 9.1 K/mm3 (1.8-7.7) H 12/18/18 05:00 Seg Neutrophils # Man 7.3 K/mm3 (1.8-7.7) 12/15/18 04:05 Band Neutrophils # 0.2 K/mm3 12/15/18 04:05 0.6 K/mm3 (1.2-5.4) L 12/15/18 04:05 Abs React Lymphs (Man) 0.0 K/mm3 12/15/18 04:05 0.2 K/mm3 (0.0-0.8) 12/15/18 04:05 0.0 K/mm3 (0.0-0.4) 12/15/18 04:05 0.0 K/mm3 (0.0-0.1) 12/15/18 04:05 0.0 K/mm3 12/15/18 04:05 0.0 K/mm3 12/15/18 04:05 0.0 K/mm3 12/15/18 04:05 Blast Cells # 0.0 K/mm3 12/15/18 04:05 WBC Morphology Not Reportable 12/15/18 04:05 Hypersegmented Neuts Not Reportable 12/15/18 04:05 Hyposegmented Neuts Not Reportable 12/15/18 04:05 Hypogranular Neuts Not Reportable 12/15/18 04:05 Not Reportable 12/15/18 04:05 Not Reportable 12/15/18 04:05 Not Reportable 12/15/18 04:05 Not Reportable 12/15/18 04:05 Not Reportable 12/15/18 04:05 Not Reportable 12/15/18 04:05 Consistent w auto 12/15/18 04:05 Not Reportable 12/15/18 04:05 Plt Clumps, EDTA Not Reportable 12/15/18 04:05 Not Reportable 12/15/18 04:05 Not Reportable 12/15/18 04:05 Not Reportable 12/15/18 04:05 Plt Morphology Comment Not Reportable 12/15/18 04:05 RBC Morphology Not Reportable 12/15/18 04:05 Dimorphic RBCs Not Reportable 12/15/18 04:05 Not Reportable 12/15/18 04:05 1+ 12/15/18 04:05 1+ 12/15/18 04:05 2+ 12/15/18 04:05 2+ 12/15/18 04:05 Not Reportable 12/15/18 04:05 Not Reportable 12/15/18 04:05 Not Reportable 12/15/18 04:05 Not Reportable 12/15/18 04:05 1+ 12/15/18 04:05 Rare 12/15/18 04:05 Few 12/15/18 04:05 Not Reportable 12/15/18 04:05 Not Reportable 12/15/18 04:05 Not Reportable 12/15/18 04:05 Not Reportable 12/15/18 04:05 Not Reportable 12/15/18 04:05 Not Reportable 12/15/18 04:05 Few 12/15/18 04:05 Acanthocytes (Spur) Few 12/15/18 04:05 Rouleaux Not Reportable 12/15/18 04:05 Not Reportable 12/15/18 04:05 Not Reportable 12/15/18 04:05 Not Reportable 12/15/18 04:05 Not Reportable 12/15/18 04:05 Hem Pathologist Commnt No 12/15/18 04:05 PT 24.2 Sec. (12.2-14.9) H 12/14/18 12:19 INR 2.22 (0.87-1.13) H 12/14/18 12:19 APTT 32.6 Sec. (24.2-36.6) 12/14/18 12:19 POC ABG pH 7.447 (7.35-7.45) 12/17/18 17:02 POC ABG pCO2 34.5 (35-45) L 12/17/18 03:24 POC ABG pO2 125 (80-105) H 12/17/18 17:02 POC ABG HCO3 17.1 (22-26 mml/L) 12/17/18 17:02 POC ABG Total CO2 18 (23-27mmol/L) 12/17/18 17:02 POC ABG O2 Sat 99 12/17/18 17:02 POC ABG Base Excess -7 ((-2) - (+3)mmol/L) 12/17/18 17:02 25 % 12/17/18 17:02 Sodium 144 mmol/L (137-145) D 12/18/18 05:00 Potassium 3.8 mmol/L (3.6-5.0) 12/18/18 05:00 Chloride 111.8 mmol/L (98-107) H 12/18/18 05:00 Carbon Dioxide 21 mmol/L (22-30) L 12/18/18 05:00 15 mmol/L 12/18/18 05:00 BUN 36 mg/dL (9-20) H 12/18/18 05:00 0.6 mg/dL (0.8-1.5) L 12/18/18 05:00 Estimated GFR > 60 ml/min 12/18/18 05:00 60 % 12/18/18 05:00 Glucose 139 mg/dL (75-100) H 12/18/18 05:00 POC Glucose 161 (70-105) H 12/18/18 05:03 Lactic Acid 4.40 mmol/L (0.7-2.0) H* 12/18/18 05:00 Calcium 7.5 mg/dL (8.4-10.2) L 12/18/18 05:00 Phosphorus 5.10 mg/dL (2.5-4.5) H 12/14/18 12:19 Magnesium 2.00 mg/dL (1.7-2.3) 12/14/18 12:20 5.10 mg/dL (0.1-1.2) H 12/16/18 15:14 3.4 mg/dL (0-0.2) H 12/14/18 12:20 0.8 mg/dL 12/14/18 12:20 AST 791 units/L (5-40) H 12/16/18 15:14 ALT 261 units/L (7-56) H 12/16/18 15:14 453 units/L (35-129) H 12/16/18 15:14 53.0 umol/L (25-60) 12/18/18 05:00 < 0.010 ng/mL (0.00-0.029) 12/14/18 12:19 7.50 mg/dL (0.00-1.30) H 12/16/18 15:14 NT-Pro-B Natriuret Pep 567.7 pg/mL (0-900) 12/14/18 12:20 4.7 g/dL (6.3-8.2) L 12/16/18 15:14 2.0 g/dL (3.9-5) L 12/16/18 15:14 0.7 % 12/16/18 15:14 Active Medications - Current Medications Current Medications: Generic Name Dose Route Start Last Admin Trade Name Freq PRN Reason Stop Dose Admin Albuterol 2.5 mg 12/14/18 18:46 Proventil IH Q3HRT PRN Shortness Of Breath Lipase/Protease/Amylase 1 each 12/15/18 10:[address] 10,500 Unit FEEDTUBE PRN PRN For Clogged Feeding Tube Dextrose 50 ml 12/16/18 00:31 D50w (25gm) Syringe IV PRN PRN Hypoglycemia Famotidine 20 mg 12/16/18 16:00 12/17/18 21:15 Pepcid PO 20 mg BID DAMON Administration Fentanyl 50 mcg 12/14/18 19:53 Sublimaze IV Q10MIN PRN ANALGESIA Hydrophilic Ointment 1 applic 12/14/18 12:16 12/14/18 15:31 Vaseline Lip Therapy TP 1 applic Q2HR PRN Administration Dry Lips Fentanyl Citrate 2,000 mcg in 100 mls @ 2.574 mls/hr 12/14/18 20:00 12/18/18 06:44 Fentanyl Drip Premix IV 0 mcg/kg/hr TITR DAMON 0 mls/hr Titration Protocol 1 MCG/KG/HR Piperacillin Sod/Tazobactam Sod 4.5 gm in 100 mls @ 200 mls/hr 12/15/18 12:00 12/18/18 03:18 Zosyn/Ns 4.5gm/100ml IV 12/18/18 11:59 200 mls/hr Q8H DAMON Administration Protocol Sodium Chloride 1,000 mls @ 100 mls/hr 12/16/18 20:00 12/18/18 04:30 Nacl 0.9% 1000 Ml IV 100 mls/hr DIRECT DAMON Administration Norepinephrine 4 mg in 250 mls @ 7.5 mls/hr 12/18/18 08:00 12/18/18 07:45 Levophed Drip 4 Mg/Ns 250 Ml IV 2 mcg/min TITR DAMON 7.5 mls/hr Administration Protocol 2 MCG/MIN Insulin Human Regular 0 units 12/16/18 20:00 12/18/18 05:14 Humulin R SUB-Q 1 units Q6HR DAMON Administration Protocol Lactulose 20 gm 12/17/18 12:00 12/18/18 05:13 Cephulac PO 12/20/18 06:01 20 gm Q6HR DAMON Administration Morphine Sulfate 2 mg 12/14/18 18:46 Morphine IV Q2H PRN Pain, Moderate (4-6) Multi-Ingred Cream/Lotion/Oil/Oint 1 applic 12/14/18 12:16 12/14/18 15:31 Artificial Tears Ophth Oint OU 1 applic Q4HR PRN Administration Dry Eye(s) Simple Syrup 15 ml 12/15/18 10:17 Simple Syrup FEEDTUBE PRN PRN Hypoglycemia Simple Syrup 30 ml 12/15/18 10:17 Simple Syrup FEEDTUBE PRN PRN Hypoglycemia Sodium Bicarbonate 325 mg 12/15/18 10:17 Sodium Bicarbonate FEEDTUBE PRN PRN For Clogged Feeding Tube Sodium Chloride 10 ml 12/14/18 22:00 12/17/18 22:29 Sodium Chloride Flush Syringe 10 Ml IV 10 ml BID DAMON Administration Sodium Chloride 10 ml 12/14/18 18:46 Sodium Chloride Flush Syringe 10 Ml IV PRN PRN LINE FLUSH Nutrition/Malnutrition Assess - Dietary Evaluation Nutrition/Malnutrition Findings: Nutrition Notes Start: 12/15/18 10:49 Freq: Status: Active Protocol: Document 12/17/18 10:27 LP (Rec: 12/17/18 10:33 LP [id number]) Nutrition Notes Initial or Follow up Reassessment Current Diagnosis Respiratory Failure Other Pertinent Diagnosis Encephalopathy, Hepatic failure, Malignant neoplasm Current Diet Osmolite 1.5 at 50ml/hr Labs/Tests 12/16/18 Na 135 BUN 32 Bili 5.10 Pertinent Medications Reviewed Height 5 ft 5 in Weight 51.483 kg [place] Body Weight (kg) 61.81 BMI 18.8 Subjective/Other Information Pt with severe temporal wasting. Pt tolerating TF at goal rate. Pt was on hospice and family cancelled. Pt BG levels were low and was on D5 IVFs. Percent of energy/protein needs met: 100%/100% Burn Absent Trauma Absent Minimum of two criteria Yes Energy Intake (severe) < or equal to 50% Estimated Energy Requirement > or equal to 5 days Body Fat Depletion Moderate depletion (severe) Muscle Mass Moderate Depletion (severe) #2 Nutrition Diagnosis Malnutrition Etiology malignant neoplasm As Evidenced by Signs and Symptoms observed severe temporal wasting and muscle mass loss, poor appetite [employer]IO VISUAL ENGINEER #1 Nutrition Diagnosis Inadequate oral intake Diagnosis Progress(for reassessment Continues documentation) Is patient on ventilator? Yes Is Patient Ambulatory and/or Out of Bed No REE-([facility]-confined to bed) 1548.516 Kcal/Kg value to use for calculation 35 Approximate Energy Requirements Using 1802 kcal/Kg Calculation Used for Recommendations Kcal/kg Additional Notes Pro needs 62-103g (1.2-2g/kg) Fluid needs 1ml/kcal Nutrition Intervention Change Diet Order: TF Nutrition Support: Osmolite 1.5 at 50ml/hr with 150ml water flush q4h. Kcal 1,800 Protein (gm) 75 Fluid (mL) 914 Goal #1 TF tolerance Goal #2 TF (at goal rate) to meet 100% energy and pro needs Goal #3 Wt maintenance Anticipated Discharge Needs: Unable to determine at this time Follow-Up By: 12/20/18 Additional Comments Follow for TF tolerance, labs and wt, BG levels
[2018-12-18 08:41] LABS: Hematocrit 20.6 % (35.5-45.6); Hemoglobin 6.8 gm/dl (11.8-15.2)
[2018-12-18 08:51] LABS: INR 1.87 (0.87-1.13)
[2018-12-18 08:52] LABS: Partial Thromboplastin Time 37.7 Sec. (24.2-36.6)
--- NOTE | 2018-12-18 09:15 | Progress Note ---
Assessment and Plan Acute Hypoxemic Respiratory failure on MVS Severe hypoglycemia Lactic acidosis probably secondary to hypoperfusion Acute metabolic encephalopathy Protein-calorie malnutrition (severe) Right lower lobe lung mass h/o metastatic malignancy Liver failure( elevated Bilirubin, liver enzymes, elevated INR, hypoglycemia) Coagulopathy( probably secondary to liver failure and malnutrition) Microcytic anemia (I had an extended discussion with parents and family and initial goal is aggressive care and resuscitation) - repeat CBC; transfuse PRBC for serum Hb < 7.0 - continue daytime PSV trials as tolerated - VAP bundle addressed / Aspiration precautions, HOB >40 - continue supplemental oxygen wean to O2 sats >90% - daily SATs and SBTs assessment per protocol and as tolerated - continue enteral nutrition; advance to goal rate per microbiology coordinator's rec's - continue conservative volume management strategies - continue glycemic control with q6h accuchecks and SSI for target BG 140-180 mg/dl - Vasopressor support as indicated to keep MAP>65 - DE-escalate AB's based on clinical and microbiologic data (So far patient does not clinically have a focus of infection, it appears that his hypothermia and encephalopathy is probably related to hypoglycemia and metastatic liver disease ) - continue mobility protocols and off loading to prevent pressure ulcer - Monitor intake and output closely - continue lactulose for hepatic encephalopathy - continue to monitor for bleeding - continue to trend lactate levels (With liver failure, lactic acidosis may persist for a longer period) - continue anti-infective's per ID rec's - Follow cultures and de-escalate based on microbiology and clinical data - CRP of 7.5 is equivocal, continue to trend lactate to aid clinical decision making / AB's de-escalation - VTE prophylaxis (SCDs for now, elevated INR) - Stress ulcer prophylaxis - Maintenance of sleep -wake cycle, avoid ICU psychosis/delirium PROGNOSIS: GUARDED-POOR CONDITION: CRITICAL CODE STATUS: FULL CODE The high probability of a clinically significant, sudden or life-threatening deterioration of the [respiratory, neurology, GI systems required my full and direct attention, intervention and personal management. The aggregate critical care time was [34] minutes without overlap. Time includes spent on; [x] Data Review and interpretation [x] Patient assessment and monitoring of vital signs [x] Documentation [x] Medication orders and management Subjective Date of service: 12/18/18 Principal diagnosis: Ac Hypoxemic Resp failure; Severe hypoglycemia; Ac encephalopathy; Colon CA Interval history: Patient is seen today for: Ac Hypoxemic Resp failure; Severe hypoglycemia; Lactic acidosis; Ac met encephalopathy; Protein-calorie malnutrition (severe); RLL lung mass; h/o metastatic Colon CA; Liver failure (elevated Bilirubin, liver enzymes, elevated INR, hypoglycemia); Coagulopathy; Microcytic anemia Seen and examined at bedside; 24hour events reviewed; nursing and respiratory care staff consulted; no adverse overnight events reported to me; resting peacefully in bed; remains on MVS; AMS is persistent; BP's still labile; No emesis or overt aspiration; Serum hemoglobin dropping Objective Vital Signs - 12hr 12/17/18 12/17/18 12/17/18 21:15 21:30 21:45 Temperature Pulse Rate 110 H 108 H 110 H Pulse Rate [ From Monitor] Respiratory 22 23 21 Rate Blood Pressure 92/61 92/61 90/58 O2 Sat by Pulse 100 100 Oximetry 12/17/18 12/17/18 12/17/18 22:00 22:15 22:30 Temperature Pulse Rate 116 H 112 H 108 H Pulse Rate [ From Monitor] Respiratory 29 H 26 H 19 Rate Blood Pressure 92/62 93/61 81/54 O2 Sat by Pulse Oximetry 12/17/18 12/17/18 12/17/18 22:45 23:00 23:10 Temperature 98.4 F Pulse Rate 119 H 122 H Pulse Rate [ From Monitor] Respiratory 26 H 23 Rate Blood Pressure 89/59 95/64 O2 Sat by Pulse 100 Oximetry 12/17/18 12/17/18 12/17/18 23:15 23:30 23:45 Temperature Pulse Rate 119 H 116 H 119 H Pulse Rate [ From Monitor] Respiratory 22 26 H 31 H Rate Blood Pressure 86/53 85/57 89/62 O2 Sat by Pulse 100 Oximetry 12/18/18 12/18/18 12/18/18 00:00 00:06 00:15 Temperature Pulse Rate 106 H 116 H 119 H Pulse Rate [ 106 H From Monitor] Respiratory 18 23 26 H Rate Blood Pressure 85/52 85/52 83/60 O2 Sat by Pulse 100 100 100 Oximetry 12/18/18 12/18/18 12/18/18 00:30 00:41 00:45 Temperature Pulse Rate 109 H 114 H 115 H Pulse Rate [ From Monitor] Respiratory 20 29 H Rate Blood Pressure 87/55 87/55 91/60 O2 Sat by Pulse 100 100 100 Oximetry 12/18/18 12/18/18 12/18/18 01:00 01:15 01:30 Temperature Pulse Rate 99 H 111 H 112 H Pulse Rate [ From Monitor] Respiratory 20 17 26 H Rate Blood Pressure 84/58 87/57 87/59 O2 Sat by Pulse 100 Oximetry 12/18/18 12/18/18 12/18/18 01:45 02:00 02:15 Temperature Pulse Rate 113 H 117 H 120 H Pulse Rate [ From Monitor] Respiratory 23 20 31 H Rate Blood Pressure 88/58 75/51 92/55 O2 Sat by Pulse 100 100 Oximetry 12/18/18 12/18/18 12/18/18 02:30 02:45 03:00 Temperature Pulse Rate 109 H 117 H 115 H Pulse Rate [ From Monitor] Respiratory 20 19 22 Rate Blood Pressure 80/54 86/56 80/51 O2 Sat by Pulse 100 100 Oximetry 12/18/18 12/18/18 12/18/18 03:15 03:30 03:32 Temperature 98.5 F Pulse Rate 111 H 122 H Pulse Rate [ From Monitor] Respiratory 16 30 H Rate Blood Pressure 84/51 84/55 O2 Sat by Pulse 100 99 Oximetry 12/18/18 12/18/18 12/18/18 03:45 04:00 04:15 Temperature Pulse Rate 120 H 114 H 110 H Pulse Rate [ 114 H From Monitor] Respiratory 26 H 30 H 25 H Rate Blood Pressure 77/50 84/58 94/57 O2 Sat by Pulse 100 100 96 Oximetry 12/18/18 12/18/18 12/18/18 04:30 04:45 05:00 Temperature Pulse Rate 111 H 110 H 109 H Pulse Rate [ From Monitor] Respiratory 21 28 H 24 Rate Blood Pressure 94/57 87/54 82/56 O2 Sat by Pulse 99 100 Oximetry 12/18/18 12/18/18 12/18/18 05:15 05:30 05:45 Temperature Pulse Rate 104 H 104 H 112 H Pulse Rate [ From Monitor] Respiratory 20 22 26 H Rate Blood Pressure 80/51 87/55 84/55 O2 Sat by Pulse 100 100 100 Oximetry 12/18/18 12/18/18 12/18/18 06:00 06:15 06:30 Temperature Pulse Rate 105 H 112 H 100 H Pulse Rate [ From Monitor] Respiratory 24 30 H 22 Rate Blood Pressure 88/55 88/57 82/51 O2 Sat by Pulse Oximetry 12/18/18 12/18/18 12/18/18 06:45 07:00 07:15 Temperature Pulse Rate 109 H 109 H 103 H Pulse Rate [ From Monitor] Respiratory 20 30 H 30 H Rate Blood Pressure 82/50 77/47 79/47 O2 Sat by Pulse 100 99 Oximetry 12/18/18 12/18/18 12/18/18 07:30 07:41 07:45 Temperature Pulse Rate 102 H 103 H 102 H Pulse Rate [ From Monitor] Respiratory 24 22 21 Rate Blood Pressure 84/51 84/51 78/48 O2 Sat by Pulse 99 Oximetry 12/18/18 12/18/18 12/18/18 08:00 08:15 08:30 Temperature 97.2 F L Pulse Rate 101 H 102 H 107 H Pulse Rate [ 110 H From Monitor] Respiratory 26 H 26 H 26 H Rate Blood Pressure 84/61 87/60 94/61 O2 Sat by Pulse 100 100 100 Oximetry Constitutional: no acute distress, other (cachectic looking AAM, with temporal wasting riding the ventilator without obvious distress) Eyes: icteric ENT: oropharynx moist, other (ETT 24 cm RAYMUNDO) Neck: supple, no lymphadenopathy, no JVD Effort: mildly labored Ascultation: Bilateral: diminished breath sounds, rhonchi (scant) Percussion: Bilateral: not dull Cardiovascular: regular rate and rhythm Gastrointestinal: hypoactive bowel sounds, soft, non-tender, other (distended) Integumentary: other (poor turgor) Extremities: no cyanosis, pulses normal, no ischemia or petechiae, edema Neurologic: pupils equal and round, other (near obtunded; attempts to open eyes to name calling) Psychiatric: other (unable to assess) CBC and BMP: 12/19/18 06:15 12/19/18 06:15 ABG, PT/INR, D-dimer: ABG POC ABG pH 7.447 (7.35-7.45) 12/17/18 17:02 POC ABG pO2 125 (80-105) H 12/17/18 17:02 POC ABG HCO3 17.1 (22-26 mml/L) 12/17/18 17:02 POC ABG Total CO2 18 (23-27mmol/L) 12/17/18 17:02 POC ABG O2 Sat 99 12/17/18 17:02 PT/INR, D-dimer PT 21.1 Sec. (12.2-14.9) H 12/18/18 08:15 INR 1.87 (0.87-1.13) H 12/18/18 08:15 Abnormal lab findings: Abnormal Labs 12/14/18 12/14/18 12/14/18 12:05 12:19 12:19 RBC Hgb Hct MCV MCH RDW Plt Count Lymph % (Auto) Lymph # Seg Neutrophils % Seg Neuts % (Manual) Lymphocytes % (Manual) Seg Neutrophils # Lymphocytes # (Manual) PT 24.2 H INR 2.22 H APTT POC ABG pH POC ABG pCO2 POC ABG pO2 Sodium Potassium Chloride Carbon Dioxide BUN Creatinine Glucose POC Glucose 61 L Lactic Acid Calcium Phosphorus 5.10 H Total Bilirubin Direct Bilirubin AST ALT Alkaline Phosphatase Ammonia C-Reactive Protein Total Protein Albumin 12/14/18 12/14/18 12/14/18 12:20 12:28 13:58 RBC Hgb 8.8 L Hct 27.0 L MCV 67 L MCH 22 L RDW 21.3 H Plt Count Lymph % (Auto) 6.9 L Lymph # 0.5 L Seg Neutrophils % 87.1 H Seg Neuts % (Manual) Lymphocytes % (Manual) Seg Neutrophils # Lymphocytes # (Manual) PT INR APTT POC ABG pH POC ABG pCO2 POC ABG pO2 Sodium 129 L Potassium Chloride 95.5 L Carbon Dioxide 21 L BUN 32 H Creatinine 0.5 L Glucose 411 H POC Glucose 61 L Lactic Acid Calcium 7.3 L Phosphorus Total Bilirubin 4.20 H Direct Bilirubin 3.4 H AST 405 H ALT 109 H Alkaline Phosphatase 438 H Ammonia C-Reactive Protein Total Protein 4.4 L Albumin 2.0 L 12/14/18 12/14/18 12/14/18 13:59 14:38 17:41 RBC Hgb Hct MCV MCH RDW Plt Count Lymph % (Auto) Lymph # Seg Neutrophils % Seg Neuts % (Manual) Lymphocytes % (Manual) Seg Neutrophils # Lymphocytes # (Manual) PT INR APTT POC ABG pH POC ABG pCO2 POC ABG pO2 Sodium 135 L Potassium 5.8 H D Chloride Carbon Dioxide 20 L BUN 31 H Creatinine 0.3 L Glucose POC Glucose < 40 L Lactic Acid Calcium 7.8 L Phosphorus Total Bilirubin 4.90 H Direct Bilirubin AST 611 H ALT 163 H Alkaline Phosphatase 500 H Ammonia 83.0 H C-Reactive Protein Total Protein 5.1 L Albumin 2.2 L 12/14/18 12/14/18 12/15/18 17:59 23:45 00:21 RBC Hgb Hct MCV MCH RDW Plt Count Lymph % (Auto) Lymph # Seg Neutrophils % Seg Neuts % (Manual) Lymphocytes % (Manual) Seg Neutrophils # Lymphocytes # (Manual) PT INR APTT POC ABG pH POC ABG pCO2 POC ABG pO2 Sodium Potassium Chloride Carbon Dioxide BUN Creatinine Glucose 139 H POC Glucose 53 L 49 L Lactic Acid Calcium Phosphorus Total Bilirubin Direct Bilirubin AST ALT Alkaline Phosphatase Ammonia C-Reactive Protein Total Protein Albumin 12/15/18 12/15/18 12/15/18 03:50 04:05 04:05 RBC Hgb 10.6 L Hct 32.4 L MCV 66 L MCH 22 L RDW 20.5 H Plt Count Lymph % (Auto) Lymph # Seg Neutrophils % Seg Neuts % (Manual) 88.0 H Lymphocytes % (Manual) 7.0 L Seg Neutrophils # Lymphocytes # (Manual) 0.6 L PT INR APTT POC ABG pH 7.563 H POC ABG pCO2 POC ABG pO2 155 H Sodium Potassium Chloride Carbon Dioxide 20 L BUN 28 H Creatinine < 0.2 L Glucose 58 L POC Glucose Lactic Acid Calcium 8.3 L Phosphorus Total Bilirubin 5.20 H Direct Bilirubin AST 972 H ALT 241 H Alkaline Phosphatase 511 H Ammonia C-Reactive Protein Total Protein 5.4 L Albumin 2.4 L 12/15/18 12/15/18 12/15/18 06:35 09:14 09:54 RBC Hgb Hct MCV MCH RDW Plt Count Lymph % (Auto) Lymph # Seg Neutrophils % Seg Neuts % (Manual) Lymphocytes % (Manual) Seg Neutrophils # Lymphocytes # (Manual) PT INR APTT POC ABG pH 7.530 H POC ABG pCO2 POC ABG pO2 160 H 138 H Sodium Potassium Chloride Carbon Dioxide BUN Creatinine Glucose POC Glucose 43 L Lactic Acid Calcium Phosphorus Total Bilirubin Direct Bilirubin AST ALT Alkaline Phosphatase Ammonia C-Reactive Protein Total Protein Albumin 12/15/18 12/15/18 12/15/18 10:15 13:40 19:25 RBC Hgb Hct MCV MCH RDW Plt Count Lymph % (Auto) Lymph # Seg Neutrophils % Seg Neuts % (Manual) Lymphocytes % (Manual) Seg Neutrophils # Lymphocytes # (Manual) PT INR APTT POC ABG pH POC ABG pCO2 POC ABG pO2 Sodium Potassium Chloride Carbon Dioxide BUN Creatinine Glucose POC Glucose 123 H Lactic Acid 4.10 H* 2.60 H* Calcium Phosphorus Total Bilirubin Direct Bilirubin AST ALT Alkaline Phosphatase Ammonia C-Reactive Protein Total Protein Albumin 12/15/18 12/16/18 12/16/18 21:22 00:23 00:37 RBC Hgb Hct MCV MCH RDW Plt Count Lymph % (Auto) Lymph # Seg Neutrophils % Seg Neuts % (Manual) Lymphocytes % (Manual) Seg Neutrophils # Lymphocytes # (Manual) PT INR APTT POC ABG pH POC ABG pCO2 POC ABG pO2 Sodium Potassium Chloride Carbon Dioxide BUN Creatinine Glucose 282 H POC Glucose 41 L Lactic Acid 2.80 H* Calcium Phosphorus Total Bilirubin Direct Bilirubin AST ALT Alkaline Phosphatase Ammonia C-Reactive Protein Total Protein Albumin 12/16/18 12/16/18 12/16/18 01:10 03:33 06:25 RBC Hgb Hct MCV MCH RDW Plt Count Lymph % (Auto) Lymph # Seg Neutrophils % Seg Neuts % (Manual) Lymphocytes % (Manual) Seg Neutrophils # Lymphocytes # (Manual) PT INR APTT POC ABG pH 7.328 L POC ABG pCO2 POC ABG pO2 118 H Sodium Potassium Chloride Carbon Dioxide BUN Creatinine Glucose POC Glucose 156 H 166 H Lactic Acid Calcium Phosphorus Total Bilirubin Direct Bilirubin AST ALT Alkaline Phosphatase Ammonia C-Reactive Protein Total Protein Albumin 12/16/18 12/16/18 12/16/18 12:20 15:14 15:14 RBC Hgb Hct MCV MCH RDW Plt Count Lymph % (Auto) Lymph # Seg Neutrophils % Seg Neuts % (Manual) Lymphocytes % (Manual) Seg Neutrophils # Lymphocytes # (Manual) PT INR APTT POC ABG pH POC ABG pCO2 POC ABG pO2 Sodium Potassium Chloride Carbon Dioxide BUN Creatinine Glucose POC Glucose 216 H Lactic Acid 6.50 H* Calcium Phosphorus Total Bilirubin Direct Bilirubin AST ALT Alkaline Phosphatase Ammonia C-Reactive Protein 7.50 H Total Protein Albumin 12/16/18 12/16/18 12/16/18 15:14 15:14 16:46 RBC Hgb Hct MCV MCH RDW Plt Count Lymph % (Auto) Lymph # Seg Neutrophils % Seg Neuts % (Manual) Lymphocytes % (Manual) Seg Neutrophils # Lymphocytes # (Manual) PT INR APTT POC ABG pH POC ABG pCO2 POC ABG pO2 Sodium 135 L Potassium Chloride Carbon Dioxide 19 L BUN 32 H Creatinine 0.6 L D Glucose 219 H POC Glucose Lactic Acid 6.40 H* Calcium 7.7 L Phosphorus Total Bilirubin 5.10 H Direct Bilirubin AST 791 H ALT 261 H Alkaline Phosphatase 453 H Ammonia 91.0 H C-Reactive Protein Total Protein 4.7 L Albumin 2.0 L 12/16/18 12/16/18 12/16/18 18:59 20:09 23:48 RBC Hgb Hct MCV MCH RDW Plt Count Lymph % (Auto) Lymph # Seg Neutrophils % Seg Neuts % (Manual) Lymphocytes % (Manual) Seg Neutrophils # Lymphocytes # (Manual) PT INR APTT POC ABG pH POC ABG pCO2 POC ABG pO2 Sodium Potassium Chloride Carbon Dioxide BUN Creatinine Glucose POC Glucose 309 H Lactic Acid 6.20 H* 5.20 H* Calcium Phosphorus Total Bilirubin Direct Bilirubin AST ALT Alkaline Phosphatase Ammonia C-Reactive Protein Total Protein Albumin 12/17/18 12/17/18 12/17/18 00:30 03:24 05:58 RBC Hgb Hct MCV MCH RDW Plt Count Lymph % (Auto) Lymph # Seg Neutrophils % Seg Neuts % (Manual) Lymphocytes % (Manual) Seg Neutrophils # Lymphocytes # (Manual) PT INR APTT POC ABG pH POC ABG pCO2 34.5 L POC ABG pO2 118 H Sodium Potassium Chloride Carbon Dioxide BUN Creatinine Glucose POC Glucose 186 H Lactic Acid 3.90 H* Calcium Phosphorus Total Bilirubin Direct Bilirubin AST ALT Alkaline Phosphatase Ammonia C-Reactive Protein Total Protein Albumin 12/17/18 12/17/18 12/17/18 07:00 11:51 17:02 RBC Hgb Hct MCV MCH RDW Plt Count Lymph % (Auto) Lymph # Seg Neutrophils % Seg Neuts % (Manual) Lymphocytes % (Manual) Seg Neutrophils # Lymphocytes # (Manual) PT INR APTT POC ABG pH POC ABG pCO2 POC ABG pO2 125 H Sodium Potassium Chloride Carbon Dioxide BUN Creatinine Glucose POC Glucose 173 H Lactic Acid 3.10 H* Calcium Phosphorus Total Bilirubin Direct Bilirubin AST ALT Alkaline Phosphatase Ammonia C-Reactive Protein Total Protein Albumin 12/17/18 12/17/18 12/18/18 17:38 23:34 05:00 RBC 3.01 L Hgb 6.6 L Hct 20.2 L MCV 67 L MCH 22 L RDW 22.3 H Plt Count 87 L Lymph % (Auto) 4.9 L Lymph # 0.5 L Seg Neutrophils % 89.3 H Seg Neuts % (Manual) Lymphocytes % (Manual) Seg Neutrophils # 9.1 H Lymphocytes # (Manual) PT INR APTT POC ABG pH POC ABG pCO2 POC ABG pO2 Sodium Potassium Chloride Carbon Dioxide BUN Creatinine Glucose POC Glucose 174 H 172 H Lactic Acid Calcium Phosphorus Total Bilirubin Direct Bilirubin AST ALT Alkaline Phosphatase Ammonia C-Reactive Protein Total Protein Albumin 12/18/18 12/18/18 12/18/18 05:00 05:00 05:03 RBC Hgb Hct MCV MCH RDW Plt Count Lymph % (Auto) Lymph # Seg Neutrophils % Seg Neuts % (Manual) Lymphocytes % (Manual) Seg Neutrophils # Lymphocytes # (Manual) PT INR APTT POC ABG pH POC ABG pCO2 POC ABG pO2 Sodium Potassium Chloride 111.8 H Carbon Dioxide 21 L BUN 36 H Creatinine 0.6 L Glucose 139 H POC Glucose 161 H Lactic Acid 4.40 H* Calcium 7.5 L Phosphorus Total Bilirubin Direct Bilirubin AST ALT Alkaline Phosphatase Ammonia C-Reactive Protein Total Protein Albumin 12/18/18 12/18/18 08:15 08:15 RBC Hgb Hct MCV MCH RDW Plt Count Lymph % (Auto) Lymph # Seg Neutrophils % Seg Neuts % (Manual) Lymphocytes % (Manual) Seg Neutrophils # Lymphocytes # (Manual) PT 21.1 H INR 1.87 H APTT 37.7 H POC ABG pH POC ABG pCO2 POC ABG pO2 Sodium Potassium Chloride Carbon Dioxide BUN Creatinine Glucose POC Glucose Lactic Acid 3.60 H* Calcium Phosphorus Total Bilirubin Direct Bilirubin AST ALT Alkaline Phosphatase Ammonia C-Reactive Protein Total Protein Albumin Chest x-ray: image reviewed (stable RLL nodule) Allied health notes reviewed: nursing
[2018-12-18] MEDS: SODIUM CHLORIDE FLUSH SYRINGE 10 ML IV SCH ×2 (09:45→21:30)
[2018-12-18] MEDS: PEPCID PO SCH (09:45)
[2018-12-18] MEDS: VANCOMYCIN 750 MG in NACL 0.9% 250ML 250 ML IV SCH ×2 (12:11→23:27)
[2018-12-18] MEDS ORDERED: NACL 0.9% 500 ML 500 ML IV ONE (13:00)
[2018-12-18] MEDS ORDERED: VITAMIN K (ADULT ONLY) SUB-Q STA (13:41)
[2018-12-18] MEDS ORDERED: PROTONIX 80 MG in NACL 0.9% 100 ML IV SCH (14:00)
--- NOTE | 2018-12-18 15:04 | Gastroenterology Consultation ---
History of Present Illness - Reason for Consult Consult date: 12/18/18 anemia Requesting physician: SLY TRIMBLE - History of Present Illness Patient is a 53 y/o male assisted living resident where he was on hospice for metastatic neoplasm who presented to ED for unresponsiveness and was admitted with septic shock, acute hypoxemic respiratory failure, hepatic failure 2/2 metastatic disease with coagulopathy, and hypoglycemia. GI has been consulted for anemia after noted drop in H/H today. Patient is currently on vent in ICU requiring pressor support. Family (patient's father, stepmother, and nephrew) were at bedside this afternoon who assisted with providing history. They report patient being admitted to [facility] in [place] a couple of m onths ago and was diagnosed with cancer after undergoing an endoscopic evaluation with tumors found in stomach vs colon, along with mets to the liver and lung (records unavailable at this time). He is followed by oncology (Dr. Mcdowell) and has been told he is not a candidate for surgery or chemotherapy. No active signs of bleeding such as hematemesis, melena, or hematochezia. Per nursing, patient has had multiple BMs today (on lactulose) with brown tool. No evidence of abd pain or N/V. Tolerating TFs. Past History Past Medical History: other (as per HPI) Past Surgical History: Other (Unable to Obtain) Social history: other (assisted living resident, on hospice) Family history: cancer (father with h/o colon cancer ) Medications and Allergies Allergies Allergy/AdvReac Type Severity Reaction Status Date / Time No Known Allergies Allergy Unverified 12/14/18 20:51 Home Medications Medication Instructions Recorded Confirmed Last Taken Type oxyCODONE [roxiCODONE] 5 mg PO PRN PRN 12/15/18 12/15/18 Unknown History Active Meds: Active Medications Albuterol (Proventil) 2.5 mg IH Q3HRT PRN PRN Reason: Shortness Of Breath Lipase/Protease/Amylase (Maylin Stevenson 10,500 Unit) 1 each FEEDTUBE PRN PRN PRN Reason: For Clogged Feeding Tube Dextrose (D50w (25gm) Syringe) 50 ml IV PRN PRN PRN Reason: Hypoglycemia Fentanyl (Sublimaze) 50 mcg IV Q10MIN PRN PRN Reason: ANALGESIA Hydrophilic Ointment (Vaseline Lip Therapy) 1 applic TP Q2HR PRN PRN Reason: Dry Lips Last Admin: 12/14/18 15:31 Dose: 1 applic Documented by: Fentanyl Citrate (Fentanyl Drip Premix) 2,000 mcg in 100 mls @ 2.574 mls/hr IV TITR DAMON; Protocol Last Titration: 12/18/18 06:44 Dose: 0 mcg/kg/hr, 0 mls/hr Documented by: Piperacillin Sod/Tazobactam Sod (Zosyn/Ns 4.5gm/100ml) 4.5 gm in 100 mls @ 200 mls/hr IV Q8H DAMON; Protocol Stop: 12/19/18 23:59 Last Admin: 12/18/18 12:11 Dose: 200 mls/hr Documented by: Sodium Chloride (Nacl 0.9% 1000 Ml) 1,000 mls @ 100 mls/hr IV DIRECT DAMON Last Admin: 12/18/18 04:30 Dose: 100 mls/hr Documented by: Norepinephrine (Levophed Drip 4 Mg/Ns 250 Ml) 4 mg in 250 mls @ 7.5 mls/hr IV TITR DAMON; Protocol Last Admin: 12/18/18 07:45 Dose: 2 mcg/min, 7.5 mls/hr Documented by: Vancomycin HCl 750 mg/ Sodium (Chloride) 265 mls @ 176.667 mls/hr IV Q12H DAMON Stop: 12/19/18 23:59 Last Admin: 12/18/18 12:11 Dose: 176.667 mls/hr Documented by: Insulin Human Regular (Humulin R) 0 units SUB-Q Q6HR DAMON; Protocol Last Admin: 12/18/18 12:18 Dose: Not Given Documented by: Lactulose (Cephulac) 20 gm PO Q6HR DAMON Stop: 12/20/18 06:01 Last Admin: 12/18/18 12:12 Dose: 20 gm Documented by: Lansoprazole (Prevacid Solutab) 30 mg FEEDTUBE BID DAMON Morphine Sulfate (Morphine) 2 mg IV Q2H PRN PRN Reason: Pain, Moderate (4-6) Multi-Ingred Cream/Lotion/Oil/Oint (Artificial Tears Ophth Oint) 1 applic OU Q4HR PRN PRN Reason: Dry Eye(s) Last Admin: 12/14/18 15:31 Dose: 1 applic Documented by: Simple Syrup (Simple Syrup) 15 ml FEEDTUBE PRN PRN PRN Reason: Hypoglycemia Last Admin: 12/18/18 12:12 Dose: 15 ml Documented by: Simple Syrup (Simple Syrup) 30 ml FEEDTUBE PRN PRN PRN Reason: Hypoglycemia Sodium Bicarbonate (Sodium Bicarbonate) 325 mg FEEDTUBE PRN PRN PRN Reason: For Clogged Feeding Tube Sodium Chloride (Sodium Chloride Flush Syringe 10 Ml) 10 ml IV BID DAMON Last Admin: 12/18/18 09:45 Dose: 10 ml Documented by: Sodium Chloride (Sodium Chloride Flush Syringe 10 Ml) 10 ml IV PRN PRN PRN Reason: LINE FLUSH medications reviewed/updated as required Review of Systems - Review of Systems ROS unobtainable: due to endotracheal tube, due to mental status Exam - Constitutional Vital Signs: Temp Pulse Resp BP Pulse Ox 97.1 F L 102 H 29 H 100/66 100 12/18/18 12:00 12/18/18 15:00 12/18/18 15:00 12/18/18 15:00 12/18/18 15:00 General appearance: cachectic, other (on vent and pressor support in ICU) - Respiratory Respiratory: bilateral: CTA (anterior) - Cardiovascular Rhythm: other (tachycardia) - Gastrointestinal General gastrointestinal: Present: soft, non-distended, normal bowel sounds - Labs CBC & Chem 7: 12/18/18 08:15 12/18/18 05:00 Lab Results: Laboratory Results - last 24 hr 12/17/18 12/17/18 12/17/18 17:02 17:38 23:34 WBC RBC Hgb Hct MCV MCH MCHC RDW Plt Count Lymph % (Auto) [place] % (Auto) Eos % (Auto) Baso % (Auto) Lymph # [place] # Eos # Baso # Seg Neutrophils % Seg Neutrophils # PT INR APTT POC ABG pH 7.447 POC ABG pO2 125 H POC ABG HCO3 17.1 POC ABG Total CO2 18 POC ABG O2 Sat 99 POC ABG Base Excess -7 FiO2 25 Sodium Potassium Chloride Carbon Dioxide Anion Gap BUN Creatinine Estimated GFR BUN/Creatinine Ratio Glucose POC Glucose 174 H 172 H Lactic Acid Calcium Ammonia 12/18/18 12/18/18 12/18/18 05:00 05:00 05:00 WBC 10.2 RBC 3.01 L Hgb 6.6 L Hct 20.2 L MCV 67 L MCH 22 L MCHC 33 RDW 22.3 H Plt Count 87 L Lymph % (Auto) 4.9 L [place] % (Auto) 5.6 Eos % (Auto) 0.1 Baso % (Auto) 0.1 Lymph # 0.5 L [place] # 0.6 Eos # 0.0 Baso # 0.0 Seg Neutrophils % 89.3 H Seg Neutrophils # 9.1 H PT INR APTT POC ABG pH POC ABG pO2 POC ABG HCO3 POC ABG Total CO2 POC ABG O2 Sat POC ABG Base Excess FiO2 Sodium 144 D Potassium 3.8 Chloride 111.8 H Carbon Dioxide 21 L Anion Gap 15 BUN 36 H Creatinine 0.6 L Estimated GFR > 60 BUN/Creatinine Ratio 60 Glucose 139 H POC Glucose Lactic Acid Calcium 7.5 L Ammonia 53.0 12/18/18 12/18/18 12/18/18 05:00 05:03 08:15 WBC RBC Hgb Hct MCV MCH MCHC RDW Plt Count Lymph % (Auto) [place] % (Auto) Eos % (Auto) Baso % (Auto) Lymph # [place] # Eos # Baso # Seg Neutrophils % Seg Neutrophils # PT INR APTT POC ABG pH POC ABG pO2 POC ABG HCO3 POC ABG Total CO2 POC ABG O2 Sat POC ABG Base Excess FiO2 Sodium Potassium Chloride Carbon Dioxide Anion Gap BUN Creatinine Estimated GFR BUN/Creatinine Ratio Glucose POC Glucose 161 H Lactic Acid 4.40 H* 3.60 H* Calcium Ammonia 12/18/18 12/18/18 12/18/18 08:15 08:15 12:04 WBC RBC Hgb 6.8 L Hct 20.6 L MCV MCH MCHC RDW Plt Count Lymph % (Auto) [place] % (Auto) Eos % (Auto) Baso % (Auto) Lymph # [place] # Eos # Baso # Seg Neutrophils % Seg Neutrophils # PT 21.1 H INR 1.87 H APTT 37.7 H POC ABG pH POC ABG pO2 POC ABG HCO3 POC ABG Total CO2 POC ABG O2 Sat POC ABG Base Excess FiO2 Sodium Potassium Chloride Carbon Dioxide Anion Gap BUN Creatinine Estimated GFR BUN/Creatinine Ratio Glucose POC Glucose 68 L Lactic Acid Calcium Ammonia Assessment and Plan 1.anemia 2.metastatic neoplasm (primary stomach vs colon per family with mets to liver and lung) -stool occult positive -H/H 6.8/20.6-trended down -continue to monitor H/H and transfuse as needed -no active/overt signs of bleeding -etiology-most likely 2/2 metestatic disease -clinically, patient is currently in ICU on vent and pressor support. -no plan for scope at this time -continue PPI and supportive care -patient followed by oncology (Dr. Mcdowell)- not a candidate for surgery or chemotherapy (previously on hospice) -prognosis poor- family currently considering DNR status
[2018-12-18] MEDS: PREVACID SOLUTAB FEEDTUBE SCH ×2 (15:07→21:30)
[2018-12-18 15:55] LABS: Albumin 1.6 g/dL (3.9-5); Bilirubin,Direct 3.4 mg/dL (0-0.2)
--- NOTE | 2018-12-19 02:34 | XRay Report ---
CHEST 1 VIEW INDICATION / CLINICAL INFORMATION: follow up respiratory failure. COMPARISON: 12/18/2018 at 0206 hours FINDINGS: SUPPORT DEVICES: The endotracheal tube tip is located 6 cm above the beatriz. The left PICC line overlies expected location of the superior vena cava. The nasogastric tube is subdiaphragmatic, the distal portion of the tube is not included on the radio graph. HEART / MEDIASTINUM: No significant abnormality. LUNGS / PLEURA: Questionable nodularity in the right lower lung is again noted. No convincing evidence of acute interstitial or airspace pulmonary disease. No pneumothorax. ADDITIONAL FINDINGS: No significant additional findings. IMPRESSION: 1. No acute findings. Signer Name: Uday Marques MD Signed: 12/19/2018 2:29 AM Workstation Name: [email or web address]
[2018-12-19] MEDS: ZOSYN/NS 4.5GM/100ML 4.5 GM/100 ML VIAL IV SCH (06:15)
[2018-12-19] MEDS: CEPHULAC PO SCH ×3 (06:15→18:45)
[2018-12-19 06:44] LABS: Hematocrit 33.1 % (35.5-45.6); Hemoglobin 11.2 gm/dl (11.8-15.2); Mean Corpuscular HGB Conc 34 % (32-34); Mean Corpuscular Volume 74 fl (84-94); Red Blood Count 4.49 M/mm3 (3.65-5.03)
[2018-12-19 06:45] LABS: Platelet Count 66 K/mm3 (140-440); Red Cell Distribution Width 26.3 % (13.2-15.2)
[2018-12-19 07:05] LABS: Alanine Aminotransferase 534 units/L (7-56); Albumin 1.7 g/dL (3.9-5); BUN/Creatinine Ratio 66; Blood Urea Nitrogen 46 mg/dL (9-20); Calcium 7.6 mg/dL (8.4-10.2); Hemolysis Index 3
[2018-12-19] MEDS: HumuLIN R SUB-Q SCH ×3 (07:26→18:45)
--- NOTE | 2018-12-19 08:13 | Progress Note ---
Assessment and Plan Assessment and plan: Sepsis Septic shock. Continue Levophed as needed. Continue IV fluid hydration. Continue IV antibiotics. Consult ID Physician. Acute hypoxemic respiratory failure. Patient orally intubated on mechanical ventilation. Wean vent as tolerated, daily SBT, ABG, suupportive care. Pulmonary consulted and following. Primary cancer of unknown source. Metastatic Neoplasm with Unknown primary. Patient was previously on hospice. This designation apparently has been revoked. We will attempt to have continued discussed with the family. Father's number [phone]. Pulmonary with extended discussion regarding aggressive care and resuscitation. Coagulopathy. Etiology likely secondary to liver failure and malnutrition. Toxic metabolic encephalopathy. Also hepatic etiology. Continue lactulose. CT scan negative. Etiology secondary to sepsis and hypoglycemia. Hepatic failure. Etiology likely secondary to metastatic disease, pain control supportive care. Hypoglycemia. Cont. tube feedings. D50 as needed Anemia with acute hemoglobin drop. Hgb 11.2 after 2 units PRBC given for hgb 6.6. and stool occult blood positive. Consult GI, Protonix, Vit K subcut given 12/18 since INR elevated Poor prognosis. The high probability of a clinically significant, sudden or life threatening de terioration of the [respiratory, hepatic and neurological] system(s) required my full and direct attention, intervention and personal management. The aggregate critical care time was [32] minutes. This time is in addition to time spent performing reported procedures but includes the following: [x] Data Review and interpretation [x] Patient assessment and monitoring of vital signs [x] Documentation [x] Medication orders and management History Interval history: Still intubated BP still low - on Levophed Hospitalist Physical - Physical exam Narrative exam: Gen: Not in acute distress, lying in bed, malnourished HEENT: Normocephalic, atraumatic Neck: supple, no JVD Heart: S1 and S2 reg, tachycardia, no murmurs, rubs or gallop Lungs: Clear, no crackles or wheeze Abd: soft, non tender, non distended, normal BS Ext: Swollen knees, no clubbing, no cyanosis, Neuro: intubated, minimal responsive - Constitutional Vitals: Temp Pulse Resp BP Pulse Ox 97.6 F 99 H 30 H 84/59 100 12/19/18 04:00 12/19/18 07:33 12/19/18 07:15 12/19/18 07:33 12/19/18 07:33 General appearance: Present: other (orally intubated) Results - Labs CBC & Chem 7: 12/19/18 06:15 12/19/18 06:15 Labs: Laboratory Last Values WBC 12.6 K/mm3 (4.5-11.0) H 12/19/18 06:15 RBC 4.49 M/mm3 (3.65-5.03) 12/19/18 06:15 Hgb 11.2 gm/dl (11.8-15.2) L D 12/19/18 06:15 Hct 33.1 % (35.5-45.6) L D 12/19/18 06:15 MCV 74 fl (84-94) L 12/19/18 06:15 MCH 25 pg (28-32) L 12/19/18 06:15 MCHC 34 % (32-34) 12/19/18 06:15 RDW 26.3 % (13.2-15.2) H 12/19/18 06:15 Plt Count 66 K/mm3 (140-440) L 12/19/18 06:15 Lymph % (Auto) 4.9 % (13.4-35.0) L 12/18/18 05:00 [place] % (Auto) 5.6 % (0.0-7.3) 12/18/18 05:00 Eos % (Auto) 0.1 % (0.0-4.3) 12/18/18 05:00 Baso % (Auto) 0.1 % (0.0-1.8) 12/18/18 05:00 Lymph # 0.5 K/mm3 (1.2-5.4) L 12/18/18 05:00 [place] # 0.6 K/mm3 (0.0-0.8) 12/18/18 05:00 Eos # 0.0 K/mm3 (0.0-0.4) 12/18/18 05:00 Baso # 0.0 K/mm3 (0.0-0.1) 12/18/18 05:00 Add Manual Diff Complete 12/15/18 04:05 Total Counted 100 12/15/18 04:05 Seg Neutrophils % 89.3 % (40.0-70.0) H 12/18/18 05:00 Seg Neuts % (Manual) 88.0 % (40.0-70.0) H 12/15/18 04:05 2.0 % 12/15/18 04:05 7.0 % (13.4-35.0) L 12/15/18 04:05 Reactive Lymphs % (Man) 0 % 12/15/18 04:05 3.0 % (0.0-7.3) 12/15/18 04:05 0 % (0.0-4.3) 12/15/18 04:05 0 % (0.0-1.8) 12/15/18 04:05 0 % 12/15/18 04:05 0 % 12/15/18 04:05 0 % 12/15/18 04:05 0 % 12/15/18 04:05 Nucleated RBC % Not Reportable 12/15/18 04:05 Seg Neutrophils # 9.1 K/mm3 (1.8-7.7) H 12/18/18 05:00 Seg Neutrophils # Man 7.3 K/mm3 (1.8-7.7) 12/15/18 04:05 Band Neutrophils # 0.2 K/mm3 12/15/18 04:05 0.6 K/mm3 (1.2-5.4) L 12/15/18 04:05 Abs React Lymphs (Man) 0.0 K/mm3 12/15/18 04:05 0.2 K/mm3 (0.0-0.8) 12/15/18 04:05 0.0 K/mm3 (0.0-0.4) 12/15/18 04:05 0.0 K/mm3 (0.0-0.1) 12/15/18 04:05 0.0 K/mm3 12/15/18 04:05 0.0 K/mm3 12/15/18 04:05 0.0 K/mm3 12/15/18 04:05 Blast Cells # 0.0 K/mm3 12/15/18 04:05 WBC Morphology Not Reportable 12/15/18 04:05 Hypersegmented Neuts Not Reportable 12/15/18 04:05 Hyposegmented Neuts Not Reportable 12/15/18 04:05 Hypogranular Neuts Not Reportable 12/15/18 04:05 Not Reportable 12/15/18 04:05 Not Reportable 12/15/18 04:05 Not Reportable 12/15/18 04:05 Not Reportable 12/15/18 04:05 Not Reportable 12/15/18 04:05 Not Reportable 12/15/18 04:05 Consistent w auto 12/15/18 04:05 Not Reportable 12/15/18 04:05 Plt Clumps, EDTA Not Reportable 12/15/18 04:05 Not Reportable 12/15/18 04:05 Not Reportable 12/15/18 04:05 Not Reportable 12/15/18 04:05 Plt Morphology Comment Not Reportable 12/15/18 04:05 RBC Morphology Not Reportable 12/15/18 04:05 Dimorphic RBCs Not Reportable 12/15/18 04:05 Not Reportable 12/15/18 04:05 1+ 12/15/18 04:05 1+ 12/15/18 04:05 2+ 12/15/18 04:05 2+ 12/15/18 04:05 Not Reportable 12/15/18 04:05 Not Reportable 12/15/18 04:05 Not Reportable 12/15/18 04:05 Not Reportable 12/15/18 04:05 1+ 12/15/18 04:05 Rare 12/15/18 04:05 Few 12/15/18 04:05 Not Reportable 12/15/18 04:05 Not Reportable 12/15/18 04:05 Not Reportable 12/15/18 04:05 Not Reportable 12/15/18 04:05 Not Reportable 12/15/18 04:05 Not Reportable 12/15/18 04:05 Few 12/15/18 04:05 Acanthocytes (Spur) Few 12/15/18 04:05 Rouleaux Not Reportable 12/15/18 04:05 Not Reportable 12/15/18 04:05 Not Reportable 12/15/18 04:05 Not Reportable 12/15/18 04:05 Not Reportable 12/15/18 04:05 Hem Pathologist Commnt No 12/15/18 04:05 PT 21.1 Sec. (12.2-14.9) H 12/18/18 08:15 INR 1.87 (0.87-1.13) H 12/18/18 08:15 APTT 37.7 Sec. (24.2-36.6) H 12/18/18 08:15 POC ABG pH 7.391 (7.35-7.45) 12/19/18 05:41 POC ABG pCO2 34.5 (35-45) L 12/17/18 03:24 POC ABG pO2 121 (80-105) H 12/19/18 05:41 POC ABG HCO3 14.0 (22-26 mml/L) 12/19/18 05:41 POC ABG Total CO2 15 (23-27mmol/L) 12/19/18 05:41 POC ABG O2 Sat 99 12/19/18 05:41 POC ABG Base Excess -11 ((-2) - (+3)mmol/L) 12/19/18 05:41 25 % 12/19/18 05:41 Sodium 146 mmol/L (137-145) H 12/19/18 06:15 Potassium 3.1 mmol/L (3.6-5.0) L 12/19/18 06:15 Chloride 115.0 mmol/L (98-107) H 12/19/18 06:15 Carbon Dioxide 17 mmol/L (22-30) L 12/19/18 06:15 17 mmol/L 12/19/18 06:15 BUN 46 mg/dL (9-20) H 12/19/18 06:15 0.7 mg/dL (0.8-1.5) L 12/19/18 06:15 Estimated GFR > 60 ml/min 12/19/18 06:15 66 % 12/19/18 06:15 Glucose 116 mg/dL (75-100) H 12/19/18 06:15 POC Glucose 146 (70-105) H 12/19/18 05:53 Lactic Acid 3.60 mmol/L (0.7-2.0) H* 12/18/18 08:15 Calcium 7.6 mg/dL (8.4-10.2) L 12/19/18 06:15 Phosphorus 5.10 mg/dL (2.5-4.5) H 12/14/18 12:19 Magnesium 2.00 mg/dL (1.7-2.3) 12/14/18 12:20 4.60 mg/dL (0.1-1.2) H 12/19/18 06:15 3.4 mg/dL (0-0.2) H 12/18/18 14:30 0.6 mg/dL 12/18/18 14:30 AST 1302 units/L (5-40) H 12/19/18 06:15 ALT 534 units/L (7-56) H 12/19/18 06:15 754 units/L (35-129) H 12/19/18 06:15 53.0 umol/L (25-60) 12/18/18 05:00 < 0.010 ng/mL (0.00-0.029) 12/14/18 12:19 7.50 mg/dL (0.00-1.30) H 12/16/18 15:14 NT-Pro-B Natriuret Pep 567.7 pg/mL (0-900) 12/14/18 12:20 4.3 g/dL (6.3-8.2) L 12/19/18 06:15 1.7 g/dL (3.9-5) L 12/19/18 06:15 0.7 % 12/19/18 06:15 Blood Type O POSITIVE 12/18/18 14:49 Antibody Screen Negative 12/18/18 14:49 Crossmatch See Detail 12/18/18 14:49 Active Medications - Current Medications Current Medications: Generic Name Dose Route Start Last Admin Trade Name Freq PRN Reason Stop Dose Admin Albuterol 2.5 mg 12/14/18 18:46 Proventil IH Q3HRT PRN Shortness Of Breath Lipase/Protease/Amylase 1 each 12/15/18 10:17 Pancreaze 10,500 Unit FEEDTUBE PRN PRN For Clogged Feeding Tube Dextrose 50 ml 12/16/18 00:31 D50w (25gm) Syringe IV PRN PRN Hypoglycemia Fentanyl 50 mcg 12/14/18 19:53 Sublimaze IV Q10MIN PRN ANALGESIA Hydrophilic Ointment 1 applic 12/14/18 12:16 12/14/18 15:31 Vaseline Lip Therapy TP 1 applic Q2HR PRN Administration Dry Lips Fentanyl Citrate 2,000 mcg in 100 mls @ 2.574 mls/hr 12/14/18 20:00 12/18/18 06:44 Fentanyl Drip Premix IV 0 mcg/kg/hr TITR DAMON 0 mls/hr Titration Protocol 1 MCG/KG/HR Piperacillin Sod/Tazobactam Sod 4.5 gm in 100 mls @ 200 mls/hr 12/15/18 12:00 12/19/18 06:15 Zosyn/Ns 4.5gm/100ml IV 12/19/18 23:59 200 mls/hr Q8H DAMON Administration Protocol Sodium Chloride 1,000 mls @ 100 mls/hr 12/16/18 20:00 12/18/18 16:34 Nacl 0.9% 1000 Ml IV 100 mls/hr DIRECT DAMON Administration Norepinephrine 4 mg in 250 mls @ 7.5 mls/hr 12/18/18 08:00 12/18/18 20:45 Levophed Drip 4 Mg/Ns 250 Ml IV 0 mcg/min TITR DAMON 0 mls/hr Titration Protocol 2 MCG/MIN Vancomycin HCl 750 mg/ Sodium 265 mls @ 176.667 mls/hr 12/18/18 12:00 12/18/18 23:27 Chloride IV 12/19/18 23:59 176.667 mls/hr Q12H DAMON Administration Insulin Human Regular 0 units 12/16/18 20:00 12/19/18 07:26 Humulin R SUB-Q Not Given Q6HR DAMON Protocol Lactulose 20 gm 12/17/18 12:00 12/19/18 06:15 Cephulac PO 12/20/18 06:01 20 gm Q6HR DAMON Administration Lansoprazole 30 mg 12/18/18 14:00 12/18/18 21:30 Prevacid Solutab FEEDTUBE 30 mg BID DAMON Administration Morphine Sulfate 2 mg 12/14/18 18:46 Morphine IV Q2H PRN Pain, Moderate (4-6) Multi-Ingred Cream/Lotion/Oil/Oint 1 applic 12/14/18 12:16 12/14/18 15:31 Artificial Tears Ophth Oint OU 1 applic Q4HR PRN Administration Dry Eye(s) Simple Syrup 15 ml 12/15/18 10:17 12/18/18 12:12 Simple Syrup FEEDTUBE 15 ml PRN PRN Administration Hypoglycemia Simple Syrup 30 ml 12/15/18 10:17 Simple Syrup FEEDTUBE PRN PRN Hypoglycemia Sodium Bicarbonate 325 mg 12/15/18 10:17 Sodium Bicarbonate FEEDTUBE PRN PRN For Clogged Feeding Tube Sodium Chloride 10 ml 12/14/18 22:00 12/18/18 21:30 Sodium Chloride Flush Syringe 10 Ml IV 10 ml BID DAMON Administration Sodium Chloride 10 ml 12/14/18 18:46 Sodium Chloride Flush Syringe 10 Ml IV PRN PRN LINE FLUSH Nutrition/Malnutrition Assess - Dietary Evaluation Nutrition/Malnutrition Findings: Nutrition Notes Start: 12/15/18 10:49 Freq: Status: Active Protocol: Document 12/17/18 10:27 LP (Rec: 12/17/18 10:33 LP [id number]) Nutrition Notes Initial or Follow up Reassessment Current Diagnosis Respiratory Failure Other Pertinent Diagnosis Encephalopathy, Hepatic failure, Malignant neoplasm Current Diet Osmolite 1.5 at 50ml/hr Labs/Tests 12/16/18 Na 135 BUN 32 Bili 5.10 Pertinent Medications Reviewed Height 5 ft 5 in Weight 51.483 kg [place] Body Weight (kg) 61.81 BMI 18.8 Subjective/Other Information Pt with severe temporal wasting. Pt tolerating TF at goal rate. Pt was on hospice and family cancelled. Pt BG levels were low and was on D5 IVFs. Percent of energy/protein needs met: 100%/100% Burn Absent Trauma Absent Minimum of two criteria Yes Energy Intake (severe) < or equal to 50% Estimated Energy Requirement > or equal to 5 days Body Fat Depletion Moderate depletion (severe) Muscle Mass Moderate Depletion (severe) #2 Nutrition Diagnosis Malnutrition Etiology malignant neoplasm As Evidenced by Signs and Symptoms observed severe temporal wasting and muscle mass loss, poor appetite SURGICAL CODER #1 Nutrition Diagnosis Inadequate oral intake Diagnosis Progress(for reassessment Continues documentation) Is patient on ventilator? Yes Is Patient Ambulatory and/or Out of Bed No REE-([facility]-confined to bed) 1548.516 Kcal/Kg value to use for calculation 35 Approximate Energy Requirements Using 1802 kcal/Kg Calculation Used for Recommendations Kcal/kg Additional Notes Pro needs 62-103g (1.2-2g/kg) Fluid needs 1ml/kcal Nutrition Intervention Change Diet Order: TF Nutrition Support: Osmolite 1.5 at 50ml/hr with 150ml water flush q4h. Kcal 1,800 Protein (gm) 75 Fluid (mL) 914 Goal #1 TF tolerance Goal #2 TF (at goal rate) to meet 100% energy and pro needs Goal #3 Wt maintenance Anticipated Discharge Needs: Unable to determine at this time Follow-Up By: 12/20/18 Additional Comments Follow for TF tolerance, labs and wt, BG levels
[2018-12-19] MEDS: PREVACID SOLUTAB FEEDTUBE SCH ×2 (09:57→22:27)
[2018-12-19] MEDS: SODIUM CHLORIDE FLUSH SYRINGE 10 ML IV SCH ×2 (09:57→22:28)
--- NOTE | 2018-12-19 10:17 | Consultation ---
History of Present Illness - Reason for Consult Consult date: 12/19/18 ?sepsis Requesting physician: SLY TRIMBLE - History of Present Illness The patient is a 53-year-old male with metastatic cancer of unknown primary. Brought into the emergency room on 12/14/2018 after he was noted to be unresponsive and in respiratory distress. When EMS arrived, patient was noted to be in agonal respirations with a serum glucose of 10. Patient was intubated and brought in to the emergency room where he was placed on the ventilator. Apparently, the patient was previously on hospice which was revoked by the family. He has been unresponsive, intermittently on pressors. Infectious diseases was consulted due to concerns for possible septic shock. History of pain by chart review and discuss the patient's RN. Patient had a drop in hemoglobin requiring blood transfusion. Review of Systems: Unable to obtain from patient due to his mental status. Past History Past Medical History: other (as per HPI) Past Surgical History: Other (Unable to Obtain) Social history: other (assisted living resident, on hospice) Family history: cancer (father with h/o colon cancer ) Medications and Allergies Allergies Allergy/AdvReac Type Severity Reaction Status Date / Time No Known Allergies Allergy Unverified 12/14/18 20:51 Home Medications Medication Instructions Recorded Confirmed Last Taken Type oxyCODONE [roxiCODONE] 5 mg PO PRN PRN 12/15/18 12/15/18 Unknown History Active Meds: Active Medications Albuterol (Proventil) 2.5 mg IH Q3HRT PRN PRN Reason: Shortness Of Breath Lipase/Protease/Amylase (Pancreaze Dr 10,500 Unit) 1 each FEEDTUBE PRN PRN PRN Reason: For Clogged Feeding Tube Dextrose (D50w (25gm) Syringe) 50 ml IV PRN PRN PRN Reason: Hypoglycemia Fentanyl (Sublimaze) 50 mcg IV Q10MIN PRN PRN Reason: ANALGESIA Hydrophilic Ointment (Vaseline Lip Therapy) 1 applic TP Q2HR PRN PRN Reason: Dry Lips Last Admin: 12/14/18 15:31 Dose: 1 applic Documented by: Fentanyl Citrate (Fentanyl Drip Premix) 2,000 mcg in 100 mls @ 2.574 mls/hr IV TITR DAMON; Protocol Last Titration: 12/18/18 06:44 Dose: 0 mcg/kg/hr, 0 mls/hr Documented by: Piperacillin Sod/Tazobactam Sod (Zosyn/Ns 4.5gm/100ml) 4.5 gm in 100 mls @ 200 mls/hr IV Q8H DAMON; Protocol Stop: 12/19/18 23:59 Last Admin: 12/19/18 06:15 Dose: 200 mls/hr Documented by: Sodium Chloride (Nacl 0.9% 1000 Ml) 1,000 mls @ 100 mls/hr IV DIRECT DAMON Last Admin: 12/18/18 16:34 Dose: 100 mls/hr Documented by: Norepinephrine (Levophed Drip 4 Mg/Ns 250 Ml) 4 mg in 250 mls @ 7.5 mls/hr IV TITR DAMON; Protocol Last Titration: 12/18/18 20:45 Dose: 0 mcg/min, 0 mls/hr Documented by: Vancomycin HCl 750 mg/ Sodium (Chloride) 265 mls @ 176.667 mls/hr IV Q12H DAMON Stop: 12/19/18 23:59 Last Admin: 12/18/18 23:27 Dose: 176.667 mls/hr Documented by: Insulin Human Regular (Humulin R) 0 units SUB-Q Q6HR DAMON; Protocol Last Admin: 12/19/18 07:26 Dose: Not Given Documented by: Lactulose (Cephulac) 20 gm PO Q6HR DAMON Stop: 12/20/18 06:01 Last Admin: 12/19/18 06:15 Dose: 20 gm Documented by: Lansoprazole (Prevacid Solutab) 30 mg FEEDTUBE BID DAMON Last Admin: 12/19/18 09:57 Dose: 30 mg Documented by: Morphine Sulfate (Morphine) 2 mg IV Q2H PRN PRN Reason: Pain, Moderate (4-6) Multi-Ingred Cream/Lotion/Oil/Oint (Artificial Tears Ophth Oint) 1 applic OU Q4HR PRN PRN Reason: Dry Eye(s) Last Admin: 12/14/18 15:31 Dose: 1 applic Documented by: Simple Syrup (Simple Syrup) 15 ml FEEDTUBE PRN PRN PRN Reason: Hypoglycemia Last Admin: 12/18/18 12:12 Dose: 15 ml Documented by: Simple Syrup (Simple Syrup) 30 ml FEEDTUBE PRN PRN PRN Reason: Hypoglycemia Sodium Bicarbonate (Sodium Bicarbonate) 325 mg FEEDTUBE PRN PRN PRN Reason: For Clogged Feeding Tube Sodium Chloride (Sodium Chloride Flush Syringe 10 Ml) 10 ml IV BID DAMON Last Admin: 12/19/18 09:57 Dose: 10 ml Documented by: Sodium Chloride (Sodium Chloride Flush Syringe 10 Ml) 10 ml IV PRN PRN PRN Reason: LINE FLUSH Physical Examination - Physical Exam Narrative exam: Physical Exam: Constitutional: unresponsive, intubated, temporal wasting Head, Ears, Nose: Normocephalic, atraumatic. External ears, nose normal Eyes: Conjunctivae/corneas clear. No icterus. No ptosis. Neck: Supple, no meningeal signs Oral: intubated Cardiovascular: S1, S2 normal. Respiratory: Good air entry, clear to auscultation bilaterally GI: Soft, non-tender; bowel sounds normal. No peritoneal signs Musculoskeletal: No pedal edema, no cyanosis. Skin: No rash or abscess Hem/Lymphatic: No palpable cervical or supraclavicular nodes. No lymphangitis Psych: no agitation Neurological: unresponsive, intubated, on vent - Constitutional Vitals: Vital Signs Temp Pulse Resp BP Pulse Ox 97.5 F L 104 H 31 H 91/58 100 12/19/18 08:00 12/19/18 09:00 12/19/18 09:00 12/19/18 09:00 12/19/18 09:00 Temperature -Last 24 Hours Temperature 97.5 F Temperature 97.5 F Temperature 97.6 F Temperature 96.6 F Temperature 97 F Temperature 97.3 F Temperature 97.4 F Temperature 97.4 F Temperature 97 F Temperature 97 F Temperature 96.9 F Temperature 97.5 F Temperature 97.5 F Temperature 97.6 F Temperature 97.5 F Temperature 97.5 F Temperature 97.1 F Temperature 97.1 F Temperature 97.1 F Results - Labs CBC & Chem 7: 12/19/18 06:15 12/19/18 06:15 Labs: Abnormal lab results 12/18/18 12/18/18 12/18/18 Range/Units 12:04 14:30 14:49 WBC (4.5-11.0) K/mm3 Hgb (11.8-15.2) gm/dl Hct (35.5-45.6) % MCV (84-94) fl MCH (28-32) pg RDW (13.2-15.2) % Plt Count (140-440) K/mm3 POC ABG pO2 (80-105) Sodium (137-145) mmol/L Potassium (3.6-5.0) mmol/L Chloride (98-107) mmol/L Carbon Dioxide (22-30) mmol/L BUN (9-20) mg/dL Creatinine (0.8-1.5) mg/dL Glucose (75-100) mg/dL POC Glucose 68 L (70-105) Calcium (8.4-10.2) mg/dL Total Bilirubin 4.00 H (0.1-1.2) mg/dL Direct Bilirubin 3.4 H (0-0.2) mg/dL AST 1657 H (5-40) units/L ALT 551 H (7-56) units/L Alkaline Phosphatase 666 H (35-129) units/L Total Protein 3.8 L (6.3-8.2) g/dL Albumin 1.6 L (3.9-5) g/dL Crossmatch See Detail 12/18/18 12/18/18 12/18/18 Range/Units 15:14 18:36 23:24 WBC (4.5-11.0) K/mm3 Hgb (11.8-15.2) gm/dl Hct (35.5-45.6) % MCV (84-94) fl MCH (28-32) pg RDW (13.2-15.2) % Plt Count (140-440) K/mm3 POC ABG pO2 (80-105) Sodium (137-145) mmol/L Potassium (3.6-5.0) mmol/L Chloride (98-107) mmol/L Carbon Dioxide (22-30) mmol/L BUN (9-20) mg/dL Creatinine (0.8-1.5) mg/dL Glucose (75-100) mg/dL POC Glucose 121 H 160 H 207 H (70-105) Calcium (8.4-10.2) mg/dL Total Bilirubin (0.1-1.2) mg/dL Direct Bilirubin (0-0.2) mg/dL AST (5-40) units/L ALT (7-56) units/L Alkaline Phosphatase (35-129) units/L Total Protein (6.3-8.2) g/dL Albumin (3.9-5) g/dL Crossmatch 12/19/18 12/19/18 12/19/18 Range/Units 05:41 05:53 06:15 WBC 12.6 H (4.5-11.0) K/mm3 Hgb 11.2 L D (11.8-15.2) gm/dl Hct 33.1 L D (35.5-45.6) % MCV 74 L (84-94) fl MCH 25 L (28-32) pg RDW 26.3 H (13.2-15.2) % Plt Count 66 L (140-440) K/mm3 POC ABG pO2 121 H (80-105) Sodium (137-145) mmol/L Potassium (3.6-5.0) mmol/L Chloride (98-107) mmol/L Carbon Dioxide (22-30) mmol/L BUN (9-20) mg/dL Creatinine (0.8-1.5) mg/dL Glucose (75-100) mg/dL POC Glucose 146 H (70-105) Calcium (8.4-10.2) mg/dL Total Bilirubin (0.1-1.2) mg/dL Direct Bilirubin (0-0.2) mg/dL AST (5-40) units/L ALT (7-56) units/L Alkaline Phosphatase (35-129) units/L Total Protein (6.3-8.2) g/dL Albumin (3.9-5) g/dL Crossmatch 12/19/18 Range/Units 06:15 WBC (4.5-11.0) K/mm3 Hgb (11.8-15.2) gm/dl Hct (35.5-45.6) % MCV (84-94) fl MCH (28-32) pg RDW (13.2-15.2) % Plt Count (140-440) K/mm3 POC ABG pO2 (80-105) Sodium 146 H (137-145) mmol/L Potassium 3.1 L (3.6-5.0) mmol/L Chloride 115.0 H (98-107) mmol/L Carbon Dioxide 17 L (22-30) mmol/L BUN 46 H (9-20) mg/dL Creatinine 0.7 L (0.8-1.5) mg/dL Glucose 116 H (75-100) mg/dL POC Glucose (70-105) Calcium 7.6 L (8.4-10.2) mg/dL Total Bilirubin 4.60 H (0.1-1.2) mg/dL Direct Bilirubin (0-0.2) mg/dL AST 1302 H (5-40) units/L ALT 534 H (7-56) units/L Alkaline Phosphatase 754 H (35-129) units/L Total Protein 4.3 L (6.3-8.2) g/dL Albumin 1.7 L (3.9-5) g/dL Crossmatch - Imaging and Cardiology Chest x-ray: report reviewed, image reviewed (Chest x-ray shows ET tube in place, no evidence of pneumonia) CT Scan - head: report reviewed, image reviewed (CT head showed mild cerebral atrophy, no acute abnormality) Assessment and Plan Cultures: 12/14/2018 blood culture: No growth 12/14/2018 tracheal aspirate culture: Usual respiratory asad A/P: 53-year-old male with metastatic cancer of unknown primary. Brought into the emergency room on 12/14/2018 after he was noted to be unresponsive and in respiratory distress, admitted with: #Shock: Unclear etiology. Possible sepsis but more likely from severe acidosis and hypoglycemia. No fever or leukocytosis on admission. Blood cultures negative. No pneumonia on CXR. De-escalate abx. #Hepatic failure versus shock liver: Elevated transaminases, alkaline phosph atase and bilirubin. #Acute encephalopathy: Likely hypoglycemic encephalopathy. #Anemia with thrombocytopenia status post transfusion. #Metastatic cancer of unknown primary: Previously was on hospice. Prognosis remains extremely poor. #Acute respiratory failure: on the vent. No evidence of pneumonia. #Severe malnutrition / cachexia: likely from malignancy. Recs: D/Angel Zosyn and Vancomycin started IV Ceftriaxone 2 gm daily UA and urine culture ordered Extremely poor prognosis, hospice care would be appropriate D/W Dr. Trimble. Ana Clarke MD, FACP [facility] C: [phone] O: [phone] F: [phone]
[2018-12-19] MEDS: NACL 0.9% 1000 ML 1,000 ML IV SCH ×2 (10:45→21:11)
[2018-12-19] MEDS: ROCEPHIN/NS 2 GM/100 ML 2 GM/100 ML BAG IV SCH (11:55)
--- NOTE | 2018-12-19 12:20 | Progress Note ---
Assessment and Plan Acute Hypoxemic Respiratory failure on MVS Severe hypoglycemia Lactic acidosis probably secondary to hypoperfusion Acute metabolic encephalopathy Protein-calorie malnutrition (severe) Right lower lobe lung mass h/o metastatic malignancy Liver failure( elevated Bilirubin, liver enzymes, elevated INR, hypoglycemia) Coagulopathy( probably secondary to liver failure and malnutrition) Microcytic anemia (I had an extended discussion with parents and family again today and Dad / mom moving towards hospice transfer) - continue current care for now - CODE status changed to DNR - continue daytime PSV trials as tolerated - VAP bundle addressed / Aspiration precautions, HOB >40 - continue supplemental oxygen wean to O2 sats >90% - daily SATs and SBTs assessment per protocol and as tolerated - continue enteral nutrition; advance to goal rate per rechecker's rec's - continue conservative volume management strategies - continue glycemic control with q6h accuchecks and SSI for target BG 140-180 mg/dl - Vasopressor support as indicated to keep MAP>65 - DE-escalate AB's based on clinical and microbiologic data (So far patient does not clinically have a focus of infection, it appears that his hypothermia and encephalopathy is probably related to hypoglycemia and metastatic liver disease ) - continue mobility protocols and off loading to prevent pressure ulcer - Monitor intake and output closely - continue lactulose for hepatic encephalopathy - continue to monitor for bleeding - continue to trend lactate levels (With liver failure, lactic acidosis may persist for a longer period) - continue anti-infective's per ID rec's - Follow cultures and de-escalate based on microbiology and clinical data - CRP of 7.5 is equivocal, continue to trend lactate to aid clinical decision making / AB's de-escalation - VTE prophylaxis (SCDs for now, elevated INR) - Stress ulcer prophylaxis - Maintenance of sleep -wake cycle, avoid ICU psychosis/delirium PROGNOSIS: GUARDED-POOR CONDITION: CRITICAL CODE STATUS: DNR The high probability of a clinically significant, sudden or life-threatening deterioration of the [respiratory, neurology, GI] systems required my full and direct attention, intervention and personal management. The aggregate critical care time was [40] minutes without overlap. Time includes spent on; [x] Data Review and interpretation [x] Patient assessment and monitoring of vital signs [x] Documentation [x] Medication orders and management Subjective Date of service: 12/19/18 Principal diagnosis: Ac Hypoxemic Resp failure; Severe hypoglycemia; Ac encephalopathy; Colon CA Interval history: Patient is seen today for: Ac Hypoxemic Resp failure; Severe hypoglycemia; Lactic acidosis; Ac met encephalopathy; Protein-calorie malnutrition (severe); RLL lung mass; h/o metastatic Colon CA; Liver failure (elevated Bilirubin, liver enzymes, elevated INR, hypoglycemia); Coagulopathy; Microcytic anemia Seen and examined at bedside; 24hour events reviewed; nursing and respiratory care staff consulted; no adverse overnight events reported to me; resting peacefully in bed; no major improvement in mental status; tenuously tolerating SBT; No gross bleeding and now s/p PRBC transfusion; no seizures Objective Vital Signs - 12hr 12/19/18 12/19/18 12/19/18 00:30 00:45 01:00 Temperature Pulse Rate 99 H 107 H 101 H Pulse Rate [ From Monitor] Respiratory 32 H 31 H 32 H Rate Blood Pressure 97/71 99/69 98/73 O2 Sat by Pulse 100 Oximetry 12/19/18 12/19/18 12/19/18 01:15 01:30 01:45 Temperature Pulse Rate 102 H 107 H 99 H Pulse Rate [ From Monitor] Respiratory 29 H 34 H 27 H Rate Blood Pressure 97/71 98/71 86/65 O2 Sat by Pulse Oximetry 12/19/18 12/19/18 12/19/18 02:00 02:15 02:30 Temperature Pulse Rate 101 H 103 H 104 H Pulse Rate [ From Monitor] Respiratory 28 H 28 H 32 H Rate Blood Pressure 92/69 92/66 96/62 O2 Sat by Pulse 100 100 Oximetry 12/19/18 12/19/18 12/19/18 02:45 03:00 03:15 Temperature Pulse Rate 110 H 104 H 102 H Pulse Rate [ From Monitor] Respiratory 27 H 30 H 28 H Rate Blood Pressure 96/70 90/62 86/59 O2 Sat by Pulse 100 Oximetry 12/19/18 12/19/18 12/19/18 03:30 03:45 04:00 Temperature 97.6 F Pulse Rate 103 H 102 H 109 H Pulse Rate [ 103 H From Monitor] Respiratory 27 H 27 H 31 H Rate Blood Pressure 85/58 88/62 98/67 O2 Sat by Pulse 100 100 Oximetry 12/19/18 12/19/18 12/19/18 04:15 04:30 04:45 Temperature Pulse Rate 113 H 112 H 106 H Pulse Rate [ From Monitor] Respiratory 33 H 31 H 28 H Rate Blood Pressure 98/66 91/62 92/65 O2 Sat by Pulse 100 100 100 Oximetry 12/19/18 12/19/18 12/19/18 05:00 05:16 05:30 Temperature Pulse Rate 109 H 107 H 107 H Pulse Rate [ From Monitor] Respiratory 30 H 31 H 31 H Rate Blood Pressure 97/67 97/67 87/59 O2 Sat by Pulse 100 100 Oximetry 12/19/18 12/19/18 12/19/18 05:45 06:00 06:15 Temperature Pulse Rate 108 H 109 H 102 H Pulse Rate [ From Monitor] Respiratory 31 H 31 H 29 H Rate Blood Pressure 89/61 89/63 88/56 O2 Sat by Pulse 100 Oximetry 12/19/18 12/19/18 12/19/18 06:30 06:45 07:00 Temperature Pulse Rate 106 H 98 H 102 H Pulse Rate [ From Monitor] Respiratory 33 H 28 H 33 H Rate Blood Pressure 88/56 86/48 91/58 O2 Sat by Pulse 100 100 100 Oximetry 12/19/18 12/19/18 12/19/18 07:15 07:30 07:33 Temperature Pulse Rate 99 H 98 H 99 H Pulse Rate [ From Monitor] Respiratory 30 H 31 H 30 H Rate Blood Pressure 84/59 91/60 84/59 O2 Sat by Pulse 100 Oximetry 12/19/18 12/19/18 12/19/18 07:45 08:00 08:15 Temperature 97.5 F L Pulse Rate 103 H 106 H 104 H Pulse Rate [ 100 H From Monitor] Respiratory 34 H 36 H 33 H Rate Blood Pressure 87/64 87/60 88/59 O2 Sat by Pulse 100 100 100 Oximetry 12/19/18 12/19/18 12/19/18 08:30 08:45 09:00 Temperature Pulse Rate 107 H 108 H 104 H Pulse Rate [ From Monitor] Respiratory 35 H 31 H 31 H Rate Blood Pressure 91/63 92/62 91/58 O2 Sat by Pulse 100 100 100 Oximetry 12/19/18 12/19/18 12/19/18 09:15 09:30 09:45 Temperature Pulse Rate 110 H 107 H 105 H Pulse Rate [ From Monitor] Respiratory 33 H 33 H 32 H Rate Blood Pressure 96/60 91/56 90/55 O2 Sat by Pulse 100 100 Oximetry 12/19/18 12/19/18 12/19/18 10:00 10:15 10:30 Temperature Pulse Rate 109 H 107 H 106 H Pulse Rate [ From Monitor] Respiratory 33 H 30 H 30 H Rate Blood Pressure 81/56 83/57 86/58 O2 Sat by Pulse 100 100 Oximetry 12/19/18 12/19/18 12/19/18 10:45 11:00 11:15 Temperature Pulse Rate 109 H 107 H 105 H Pulse Rate [ From Monitor] Respiratory 30 H 27 H 28 H Rate Blood Pressure 89/54 89/54 86/52 O2 Sat by Pulse 100 Oximetry 12/19/18 12/19/18 11:30 12:00 Temperature 97.5 F L Pulse Rate 108 H 108 H Pulse Rate [ From Monitor] Respiratory 28 H 28 H Rate Blood Pressure 91/67 91/67 O2 Sat by Pulse 100 100 Oximetry Constitutional: no acute distress, other (cachectic looking AAM, with temporal wasting riding the ventilator without obvious distress) Eyes: icteric ENT: oropharynx moist, other (ETT 24 cm RAYMUNDO) Neck: supple, no lymphadenopathy, no JVD Effort: mildly labored Ascultation: Bilateral: diminished breath sounds, rhonchi (scant) Percussion: Bilateral: not dull Cardiovascular: regular rate and rhythm Gastrointestinal: hypoactive bowel sounds, soft, non-tender, other (distended) Integumentary: other (poor turgor) Extremities: no cyanosis, pulses normal, no ischemia or petechiae, edema Neurologic: pupils equal and round, other (near obtunded; attempts to open eyes to name calling) Psychiatric: other (unable to assess) CBC and BMP: 12/19/18 06:15 12/19/18 06:15 ABG, PT/INR, D-dimer: ABG POC ABG pH 7.391 (7.35-7.45) 12/19/18 05:41 POC ABG pO2 121 (80-105) H 12/19/18 05:41 POC ABG HCO3 14.0 (22-26 mml/L) 12/19/18 05:41 POC ABG Total CO2 15 (23-27mmol/L) 12/19/18 05:41 POC ABG O2 Sat 99 12/19/18 05:41 PT/INR, D-dimer PT 21.1 Sec. (12.2-14.9) H 12/18/18 08:15 INR 1.87 (0.87-1.13) H 12/18/18 08:15 Abnormal lab findings: Abnormal Labs 12/14/18 12/14/18 12/14/18 12:05 12:19 12:19 WBC RBC Hgb Hct MCV MCH RDW Plt Count Lymph % (Auto) Lymph # Seg Neutrophils % Seg Neuts % (Manual) Lymphocytes % (Manual) Seg Neutrophils # Lymphocytes # (Manual) PT 24.2 H INR 2.22 H APTT POC ABG pH POC ABG pCO2 POC ABG pO2 Sodium Potassium Chloride Carbon Dioxide BUN Creatinine Glucose POC Glucose 61 L Lactic Acid Calcium Phosphorus 5.10 H Total Bilirubin Direct Bilirubin AST ALT Alkaline Phosphatase Ammonia C-Reactive Protein Total Protein Albumin Crossmatch 12/14/18 12/14/18 12/14/18 12:20 12:28 13:58 WBC RBC Hgb 8.8 L Hct 27.0 L MCV 67 L MCH 22 L RDW 21.3 H Plt Count Lymph % (Auto) 6.9 L Lymph # 0.5 L Seg Neutrophils % 87.1 H Seg Neuts % (Manual) Lymphocytes % (Manual) Seg Neutrophils # Lymphocytes # (Manual) PT INR APTT POC ABG pH POC ABG pCO2 POC ABG pO2 Sodium 129 L Potassium Chloride 95.5 L Carbon Dioxide 21 L BUN 32 H Creatinine 0.5 L Glucose 411 H POC Glucose 61 L Lactic Acid Calcium 7.3 L Phosphorus Total Bilirubin 4.20 H Direct Bilirubin 3.4 H AST 405 H ALT 109 H Alkaline Phosphatase 438 H Ammonia C-Reactive Protein Total Protein 4.4 L Albumin 2.0 L Crossmatch 12/14/18 12/14/18 12/14/18 13:59 14:38 17:41 WBC RBC Hgb Hct MCV MCH RDW Plt Count Lymph % (Auto) Lymph # Seg Neutrophils % Seg Neuts % (Manual) Lymphocytes % (Manual) Seg Neutrophils # Lymphocytes # (Manual) PT INR APTT POC ABG pH POC ABG pCO2 POC ABG pO2 Sodium 135 L Potassium 5.8 H D Chloride Carbon Dioxide 20 L BUN 31 H Creatinine 0.3 L Glucose POC Glucose < 40 L Lactic Acid Calcium 7.8 L Phosphorus Total Bilirubin 4.90 H Direct Bilirubin AST 611 H ALT 163 H Alkaline Phosphatase 500 H Ammonia 83.0 H C-Reactive Protein Total Protein 5.1 L Albumin 2.2 L Crossmatch 12/14/18 12/14/18 12/15/18 17:59 23:45 00:21 WBC RBC Hgb Hct MCV MCH RDW Plt Count Lymph % (Auto) Lymph # Seg Neutrophils % Seg Neuts % (Manual) Lymphocytes % (Manual) Seg Neutrophils # Lymphocytes # (Manual) PT INR APTT POC ABG pH POC ABG pCO2 POC ABG pO2 Sodium Potassium Chloride Carbon Dioxide BUN Creatinine Glucose 139 H POC Glucose 53 L 49 L Lactic Acid Calcium Phosphorus Total Bilirubin Direct Bilirubin AST ALT Alkaline Phosphatase Ammonia C-Reactive Protein Total Protein Albumin Crossmatch 12/15/18 12/15/18 12/15/18 03:50 04:05 04:05 WBC RBC Hgb 10.6 L Hct 32.4 L MCV 66 L MCH 22 L RDW 20.5 H Plt Count Lymph % (Auto) Lymph # Seg Neutrophils % Seg Neuts % (Manual) 88.0 H Lymphocytes % (Manual) 7.0 L Seg Neutrophils # Lymphocytes # (Manual) 0.6 L PT INR APTT POC ABG pH 7.563 H POC ABG pCO2 POC ABG pO2 155 H Sodium Potassium Chloride Carbon Dioxide 20 L BUN 28 H Creatinine < 0.2 L Glucose 58 L POC Glucose Lactic Acid Calcium 8.3 L Phosphorus Total Bilirubin 5.20 H Direct Bilirubin AST 972 H ALT 241 H Alkaline Phosphatase 511 H Ammonia C-Reactive Protein Total Protein 5.4 L Albumin 2.4 L Crossmatch 12/15/18 12/15/18 12/15/18 06:35 09:14 09:54 WBC RBC Hgb Hct MCV MCH RDW Plt Count Lymph % (Auto) Lymph # Seg Neutrophils % Seg Neuts % (Manual) Lymphocytes % (Manual) Seg Neutrophils # Lymphocytes # (Manual) PT INR APTT POC ABG pH 7.530 H POC ABG pCO2 POC ABG pO2 160 H 138 H Sodium Potassium Chloride Carbon Dioxide BUN Creatinine Glucose POC Glucose 43 L Lactic Acid Calcium Phosphorus Total Bilirubin Direct Bilirubin AST ALT Alkaline Phosphatase Ammonia C-Reactive Protein Total Protein Albumin Crossmatch 12/15/18 12/15/18 12/15/18 10:15 13:40 19:25 WBC RBC Hgb Hct MCV MCH RDW Plt Count Lymph % (Auto) Lymph # Seg Neutrophils % Seg Neuts % (Manual) Lymphocytes % (Manual) Seg Neutrophils # Lymphocytes # (Manual) PT INR APTT POC ABG pH POC ABG pCO2 POC ABG pO2 Sodium Potassium Chloride Carbon Dioxide BUN Creatinine Glucose POC Glucose 123 H Lactic Acid 4.10 H* 2.60 H* Calcium Phosphorus Total Bilirubin Direct Bilirubin AST ALT Alkaline Phosphatase Ammonia C-Reactive Protein Total Protein Albumin Crossmatch 12/15/18 12/16/18 12/16/18 21:22 00:23 00:37 WBC RBC Hgb Hct MCV MCH RDW Plt Count Lymph % (Auto) Lymph # Seg Neutrophils % Seg Neuts % (Manual) Lymphocytes % (Manual) Seg Neutrophils # Lymphocytes # (Manual) PT INR APTT POC ABG pH POC ABG pCO2 POC ABG pO2 Sodium Potassium Chloride Carbon Dioxide BUN Creatinine Glucose 282 H POC Glucose 41 L Lactic Acid 2.80 H* Calcium Phosphorus Total Bilirubin Direct Bilirubin AST ALT Alkaline Phosphatase Ammonia C-Reactive Protein Total Protein Albumin Crossmatch 12/16/18 12/16/18 12/16/18 01:10 03:33 06:25 WBC RBC Hgb Hct MCV MCH RDW Plt Count Lymph % (Auto) Lymph # Seg Neutrophils % Seg Neuts % (Manual) Lymphocytes % (Manual) Seg Neutrophils # Lymphocytes # (Manual) PT INR APTT POC ABG pH 7.328 L POC ABG pCO2 POC ABG pO2 118 H Sodium Potassium Chloride Carbon Dioxide BUN Creatinine Glucose POC Glucose 156 H 166 H Lactic Acid Calcium Phosphorus Total Bilirubin Direct Bilirubin AST ALT Alkaline Phosphatase Ammonia C-Reactive Protein Total Protein Albumin Crossmatch 12/16/18 12/16/18 12/16/18 12:20 15:14 15:14 WBC RBC Hgb Hct MCV MCH RDW Plt Count Lymph % (Auto) Lymph # Seg Neutrophils % Seg Neuts % (Manual) Lymphocytes % (Manual) Seg Neutrophils # Lymphocytes # (Manual) PT INR APTT POC ABG pH POC ABG pCO2 POC ABG pO2 Sodium Potassium Chloride Carbon Dioxide BUN Creatinine Glucose POC Glucose 216 H Lactic Acid 6.50 H* Calcium Phosphorus Total Bilirubin Direct Bilirubin AST ALT Alkaline Phosphatase Ammonia C-Reactive Protein 7.50 H Total Protein Albumin Crossmatch 12/16/18 12/16/18 12/16/18 15:14 15:14 16:46 WBC RBC Hgb Hct MCV MCH RDW Plt Count Lymph % (Auto) Lymph # Seg Neutrophils % Seg Neuts % (Manual) Lymphocytes % (Manual) Seg Neutrophils # Lymphocytes # (Manual) PT INR APTT POC ABG pH POC ABG pCO2 POC ABG pO2 Sodium 135 L Potassium Chloride Carbon Dioxide 19 L BUN 32 H Creatinine 0.6 L D Glucose 219 H POC Glucose Lactic Acid 6.40 H* Calcium 7.7 L Phosphorus Total Bilirubin 5.10 H Direct Bilirubin AST 791 H ALT 261 H Alkaline Phosphatase 453 H Ammonia 91.0 H C-Reactive Protein Total Protein 4.7 L Albumin 2.0 L Crossmatch 12/16/18 12/16/18 12/16/18 18:59 20:09 23:48 WBC RBC Hgb Hct MCV MCH RDW Plt Count Lymph % (Auto) Lymph # Seg Neutrophils % Seg Neuts % (Manual) Lymphocytes % (Manual) Seg Neutrophils # Lymphocytes # (Manual) PT INR APTT POC ABG pH POC ABG pCO2 POC ABG pO2 Sodium Potassium Chloride Carbon Dioxide BUN Creatinine Glucose POC Glucose 309 H Lactic Acid 6.20 H* 5.20 H* Calcium Phosphorus Total Bilirubin Direct Bilirubin AST ALT Alkaline Phosphatase Ammonia C-Reactive Protein Total Protein Albumin Crossmatch 12/17/18 12/17/18 12/17/18 00:30 03:24 05:58 WBC RBC Hgb Hct MCV MCH RDW Plt Count Lymph % (Auto) Lymph # Seg Neutrophils % Seg Neuts % (Manual) Lymphocytes % (Manual) Seg Neutrophils # Lymphocytes # (Manual) PT INR APTT POC ABG pH POC ABG pCO2 34.5 L POC ABG pO2 118 H Sodium Potassium Chloride Carbon Dioxide BUN Creatinine Glucose POC Glucose 186 H Lactic Acid 3.90 H* Calcium Phosphorus Total Bilirubin Direct Bilirubin AST ALT Alkaline Phosphatase Ammonia C-Reactive Protein Total Protein Albumin Crossmatch 12/17/18 12/17/18 12/17/18 07:00 11:51 17:02 WBC RBC Hgb Hct MCV MCH RDW Plt Count Lymph % (Auto) Lymph # Seg Neutrophils % Seg Neuts % (Manual) Lymphocytes % (Manual) Seg Neutrophils # Lymphocytes # (Manual) PT INR APTT POC ABG pH POC ABG pCO2 POC ABG pO2 125 H Sodium Potassium Chloride Carbon Dioxide BUN Creatinine Glucose POC Glucose 173 H Lactic Acid 3.10 H* Calcium Phosphorus Total Bilirubin Direct Bilirubin AST ALT Alkaline Phosphatase Ammonia C-Reactive Protein Total Protein Albumin Crossmatch 12/17/18 12/17/18 12/18/18 17:38 23:34 05:00 WBC RBC 3.01 L Hgb 6.6 L Hct 20.2 L MCV 67 L MCH 22 L RDW 22.3 H Plt Count 87 L Lymph % (Auto) 4.9 L Lymph # 0.5 L Seg Neutrophils % 89.3 H Seg Neuts % (Manual) Lymphocytes % (Manual) Seg Neutrophils # 9.1 H Lymphocytes # (Manual) PT INR APTT POC ABG pH POC ABG pCO2 POC ABG pO2 Sodium Potassium Chloride Carbon Dioxide BUN Creatinine Glucose POC Glucose 174 H 172 H Lactic Acid Calcium Phosphorus Total Bilirubin Direct Bilirubin AST ALT Alkaline Phosphatase Ammonia C-Reactive Protein Total Protein Albumin Crossmatch 12/18/18 12/18/18 12/18/18 05:00 05:00 05:03 WBC RBC Hgb Hct MCV MCH RDW Plt Count Lymph % (Auto) Lymph # Seg Neutrophils % Seg Neuts % (Manual) Lymphocytes % (Manual) Seg Neutrophils # Lymphocytes # (Manual) PT INR APTT POC ABG pH POC ABG pCO2 POC ABG pO2 Sodium Potassium Chloride 111.8 H Carbon Dioxide 21 L BUN 36 H Creatinine 0.6 L Glucose 139 H POC Glucose 161 H Lactic Acid 4.40 H* Calcium 7.5 L Phosphorus Total Bilirubin Direct Bilirubin AST ALT Alkaline Phosphatase Ammonia C-Reactive Protein Total Protein Albumin Crossmatch 12/18/18 12/18/18 12/18/18 08:15 08:15 08:15 WBC RBC Hgb 6.8 L Hct 20.6 L MCV MCH RDW Plt Count Lymph % (Auto) Lymph # Seg Neutrophils % Seg Neuts % (Manual) Lymphocytes % (Manual) Seg Neutrophils # Lymphocytes # (Manual) PT 21.1 H INR 1.87 H APTT 37.7 H POC ABG pH POC ABG pCO2 POC ABG pO2 Sodium Potassium Chloride Carbon Dioxide BUN Creatinine Glucose POC Glucose Lactic Acid 3.60 H* Calcium Phosphorus Total Bilirubin Direct Bilirubin AST ALT Alkaline Phosphatase Ammonia C-Reactive Protein Total Protein Albumin Crossmatch 12/18/18 12/18/18 12/18/18 12:04 14:30 14:49 WBC RBC Hgb Hct MCV MCH RDW Plt Count Lymph % (Auto) Lymph # Seg Neutrophils % Seg Neuts % (Manual) Lymphocytes % (Manual) Seg Neutrophils # Lymphocytes # (Manual) PT INR APTT POC ABG pH POC ABG pCO2 POC ABG pO2 Sodium Potassium Chloride Carbon Dioxide BUN Creatinine Glucose POC Glucose 68 L Lactic Acid Calcium Phosphorus Total Bilirubin 4.00 H Direct Bilirubin 3.4 H AST 1657 H ALT 551 H Alkaline Phosphatase 666 H Ammonia C-Reactive Protein Total Protein 3.8 L Albumin 1.6 L Crossmatch See Detail 12/18/18 12/18/18 12/18/18 15:14 18:36 23:24 WBC RBC Hgb Hct MCV MCH RDW Plt Count Lymph % (Auto) Lymph # Seg Neutrophils % Seg Neuts % (Manual) Lymphocytes % (Manual) Seg Neutrophils # Lymphocytes # (Manual) PT INR APTT POC ABG pH POC ABG pCO2 POC ABG pO2 Sodium Potassium Chloride Carbon Dioxide BUN Creatinine Glucose POC Glucose 121 H 160 H 207 H Lactic Acid Calcium Phosphorus Total Bilirubin Direct Bilirubin AST ALT Alkaline Phosphatase Ammonia C-Reactive Protein Total Protein Albumin Crossmatch 12/19/18 12/19/18 12/19/18 05:41 05:53 06:15 WBC 12.6 H RBC Hgb 11.2 L D Hct 33.1 L D MCV 74 L MCH 25 L RDW 26.3 H Plt Count 66 L Lymph % (Auto) Lymph # Seg Neutrophils % Seg Neuts % (Manual) Lymphocytes % (Manual) Seg Neutrophils # Lymphocytes # (Manual) PT INR APTT POC ABG pH POC ABG pCO2 POC ABG pO2 121 H Sodium Potassium Chloride Carbon Dioxide BUN Creatinine Glucose POC Glucose 146 H Lactic Acid Calcium Phosphorus Total Bilirubin Direct Bilirubin AST ALT Alkaline Phosphatase Ammonia C-Reactive Protein Total Protein Albumin Crossmatch 12/19/18 12/19/18 06:15 11:46 WBC RBC Hgb Hct MCV MCH RDW Plt Count Lymph % (Auto) Lymph # Seg Neutrophils % Seg Neuts % (Manual) Lymphocytes % (Manual) Seg Neutrophils # Lymphocytes # (Manual) PT INR APTT POC ABG pH POC ABG pCO2 POC ABG pO2 Sodium 146 H Potassium 3.1 L Chloride 115.0 H Carbon Dioxide 17 L BUN 46 H Creatinine 0.7 L Glucose 116 H POC Glucose 149 H Lactic Acid Calcium 7.6 L Phosphorus Total Bilirubin 4.60 H Direct Bilirubin AST 1302 H ALT 534 H Alkaline Phosphatase 754 H Ammonia C-Reactive Protein Total Protein 4.3 L Albumin 1.7 L Crossmatch Allied health notes reviewed: nursing
[2018-12-19 12:35] LABS: Bacteria,Urine 2+ /HPF (Negative); Bilirubin,Urine SM (Negative); Blood,Urine MOD (Negative); Color,Urine Amber (Yellow); Urobilinogen,Urine < 2.0 mg/dL (<2.0)
[2018-12-19 12:59] LABS: Ictotest,Urine Negative (Negative)
--- NOTE | 2018-12-19 14:41 | Gastroenterology Progress Note ---
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 -no plan for scope, recommended conservative management -continue PPI and supportive care -patient followed by oncology (Dr. Mcdowell)- not a candidate for surgery or chemotherapy (previously on hospice) -prognosis poor- family considering DNR status -no further GI recommendations at this time -will sign off, please call if needed Subjective Date of service: 12/19/18 Principal diagnosis: anemia Interval history: Patient remains in ICU, unresponsive on vent and pressor support. No active signs of bleeding overnight or this am per nursing. Objective - Constitutional Vitals: Temp Pulse Resp BP Pulse Ox 97.5 F L 118 H 30 H 95/65 100 12/19/18 12:00 12/19/18 14:15 12/19/18 14:15 12/19/18 14:15 12/19/18 14:15 General appearance: cachectic, other (on vent and pressor support) - Respiratory Respiratory: bilateral: diminished - Cardiovascular Rhythm: other (tachycardia) - Gastrointestinal General gastrointestinal: Present: soft, non-distended, normal bowel sounds - Labs CBC & Chem 7: 12/19/18 06:15 12/19/18 06:15 Labs: Laboratory Results - last 24 hr 12/18/18 12/18/18 12/18/18 14:30 14:49 15:14 WBC RBC Hgb Hct MCV MCH MCHC RDW Plt Count POC ABG pH POC ABG pO2 POC ABG HCO3 POC ABG Total CO2 POC ABG O2 Sat POC ABG Base Excess FiO2 Sodium Potassium Chloride Carbon Dioxide Anion Gap BUN Creatinine Estimated GFR BUN/Creatinine Ratio Glucose POC Glucose 121 H Calcium Total Bilirubin 4.00 H Direct Bilirubin 3.4 H Indirect Bilirubin 0.6 AST 1657 H ALT 551 H Alkaline Phosphatase 666 H Total Protein 3.8 L Albumin 1.6 L Albumin/Globulin Ratio 0.7 Urine Color Urine Turbidity Urine pH Ur Specific [place] Urine Protein Urine Glucose (UA) Urine Ketones Urine Blood Urine Nitrite Urine Bilirubin Urine Ictotest Urine Urobilinogen Ur Leukocyte Esterase Urine WBC (Auto) Urine RBC (Auto) U Epithel Cells (Auto) Urine Bacteria (Auto) Blood Type O POSITIVE Antibody Screen Negative Crossmatch See Detail 12/18/18 12/18/18 12/19/18 18:36 23:24 05:41 WBC RBC Hgb Hct MCV MCH MCHC RDW Plt Count POC ABG pH 7.391 POC ABG pO2 121 H POC ABG HCO3 14.0 POC ABG Total CO2 15 POC ABG O2 Sat 99 POC ABG Base Excess -11 FiO2 25 Sodium Potassium Chloride Carbon Dioxide Anion Gap BUN Creatinine Estimated GFR BUN/Creatinine Ratio Glucose POC Glucose 160 H 207 H Calcium Total Bilirubin Direct Bilirubin Indirect Bilirubin AST ALT Alkaline Phosphatase Total Protein Albumin Albumin/Globulin Ratio Urine Color Urine Turbidity Urine pH Ur Specific [place] Urine Protein Urine Glucose (UA) Urine Ketones Urine Blood Urine Nitrite Urine Bilirubin Urine Ictotest Urine Urobilinogen Ur Leukocyte Esterase Urine WBC (Auto) Urine RBC (Auto) U Epithel Cells (Auto) Urine Bacteria (Auto) Blood Type Antibody Screen Crossmatch 12/19/18 12/19/18 12/19/18 05:53 06:15 06:15 WBC 12.6 H RBC 4.49 Hgb 11.2 L D Hct 33.1 L D MCV 74 L MCH 25 L MCHC 34 RDW 26.3 H Plt Count 66 L POC ABG pH POC ABG pO2 POC ABG HCO3 POC ABG Total CO2 POC ABG O2 Sat POC ABG Base Excess FiO2 Sodium 146 H Potassium 3.1 L Chloride 115.0 H Carbon Dioxide 17 L Anion Gap 17 BUN 46 H Creatinine 0.7 L Estimated GFR > 60 BUN/Creatinine Ratio 66 Glucose 116 H POC Glucose 146 H Calcium 7.6 L Total Bilirubin 4.60 H Direct Bilirubin Indirect Bilirubin AST 1302 H ALT 534 H Alkaline Phosphatase 754 H Total Protein 4.3 L Albumin 1.7 L Albumin/Globulin Ratio 0.7 Urine Color Urine Turbidity Urine pH Ur Specific [place] Urine Protein Urine Glucose (UA) Urine Ketones Urine Blood Urine Nitrite Urine Bilirubin Urine Ictotest Urine Urobilinogen Ur Leukocyte Esterase Urine WBC (Auto) Urine RBC (Auto) U Epithel Cells (Auto) Urine Bacteria (Auto) Blood Type Antibody Screen Crossmatch 07/17/19 07/17/19 11:46 12:00 WBC RBC Hgb Hct MCV MCH MCHC RDW Plt Count POC ABG pH POC ABG pO2 POC ABG HCO3 POC ABG Total CO2 POC ABG O2 Sat POC ABG Base Excess FiO2 Sodium Potassium Chloride Carbon Dioxide Anion Gap BUN Creatinine Estimated GFR BUN/Creatinine Ratio Glucose POC Glucose 149 H Calcium Total Bilirubin Direct Bilirubin Indirect Bilirubin AST ALT Alkaline Phosphatase Total Protein Albumin Albumin/Globulin Ratio Urine Color [place] Urine Turbidity Turbid Urine pH 5.0 Ur Specific [place] 1.031 H Urine Protein 30 mg/dl Urine Glucose (UA) 50 Urine Ketones Tr Urine Blood Mod Urine Nitrite Neg Urine Bilirubin Sm Urine Ictotest Negative Urine Urobilinogen < 2.0 Ur Leukocyte Esterase Neg Urine WBC (Auto) 55.0 H Urine RBC (Auto) 19.0 U Epithel Cells (Auto) 1.0 Urine Bacteria (Auto) 2+ Blood Type Antibody Screen Crossmatch
[2018-12-19] MEDS: VASELINE LIP THERAPY TP PRN (22:38)
[2018-12-19] MEDS: ARTIFICIAL TEARS OPHTH OINT OU PRN (22:38)
[2018-12-20] MEDS: CEPHULAC PO SCH ×2 (00:43→06:43)
[2018-12-20] MEDS: HumuLIN R SUB-Q SCH ×2 (00:43→06:43)
--- NOTE | 2018-12-20 02:13 | XRay Report ---
CHEST 1 VIEW INDICATION / CLINICAL INFORMATION: follow up respiratory failure. COMPARISON: 12/19/2018 FINDINGS: SUPPORT DEVICES: Stable, satisfactory device positioning. HEART / MEDIASTINUM: No significant abnormality. LUNGS / PLEURA: No acute pulmonary or pleural abnormality No pneumothorax. ADDITIONAL FINDINGS: Ill-defined somewhat nodular. Opacity in the right lung remains unchanged. IMPRESSION: 1. No acute findings. Signer Name: Uday Marques MD Signed: 12/20/2018 2:09 AM Workstation Name: [id number]
[2018-12-20] MEDS: NACL 0.9% 1000 ML 1,000 ML IV SCH (06:43)
--- NOTE | 2018-12-20 08:35 | Progress Note ---
Assessment and Plan Acute Hypoxemic Respiratory failure on MVS Severe hypoglycemia Lactic acidosis probably secondary to hypoperfusion Acute metabolic encephalopathy Protein-calorie malnutrition (severe) Right lower lobe lung mass h/o metastatic malignancy Liver failure( elevated Bilirubin, liver enzymes, elevated INR, hypoglycemia) Coagulopathy( probably secondary to liver failure and malnutrition) Microcytic anemia -Continue with mechanical ventilatory support, adjust minute ventilation for better gas exchange(has respiratory alkalosis) -VAP bundle addressed -Supplemental oxygen wean to O2 sats >990% -Daily SATs and SBTs per protocol and as tolerated -VTE prophylaxis( SCDs for now, elevated INR) -Stress ulcer prophylaxis -Place small bowel feeding tube for nutritional support -Nutrition consult, initiate enteric nutrition -Dextrose infusion until enteric nutrition is initiated -Vasopressor support as indicated to keep MAP>65 -Patient does not clinically have a focus of infection, it appears that his hypothermia and encephalopathy is probably related to hypoglycemia and metastatic liver disease -Mobility and off loading to prevent pressure ulcer -Accuchecks, avoid hypoglcemia -Aspiration precautions, HOB >40 -Will need to have goals of care discussions with the family and also discussions to get more information on the diagnosis of metastatic cancer -Monitor intake and output closely -Start lactulose for possible hepatic encephalopathy -Monitor for bleeding -With liver failure, lactic acidosis may persist for a longer period. Trend levels -Follow cultures, early de-escalation of antibiotics. PROGNOSIS: GUARDED-POOR CONDITION: CRITICAL CODE STATUS: FULL CODE The high probability of a clinically significant, sudden or life-threatening deterioration of the [respiratory, neurology, GI systems required my full and direct attention, intervention and personal management. The aggregate critical care time was [65] minutes without overlap. Time includes spent on; [x] Data Review and interpretation [x] Patient assessment and monitoring of vital signs [x] Documentation [x] Medication orders and management Subjective Date of service: 12/20/18 Principal diagnosis: anemia Interval history: Patient is seen today for: Ac Hypoxemic Resp failure; Severe hypoglycemia; Lactic acidosis; Ac met encephalopathy; Protein-calorie malnutrition (severe); RLL lung mass; h/o metastatic Colon CA; Liver failure (elevated Bilirubin, liver enzymes, elevated INR, hypoglycemia); Coagulopathy; Microcytic anemia Seen and examined at bedside; 24hour events reviewed; nursing and respiratory care staff consulted; no adverse overnight events reported to me; resting peac efully in bed; Objective Vital Signs - 12hr 12/19/18 12/19/18 12/19/18 20:45 21:00 21:15 Temperature Pulse Rate 115 H 112 H 107 H Pulse Rate [ From Monitor] Respiratory 28 H 33 H 25 H Rate Blood Pressure 90/56 78/51 83/49 O2 Sat by Pulse 100 100 Oximetry 12/19/18 12/19/18 12/19/18 21:30 21:45 22:00 Temperature Pulse Rate 112 H 118 H 116 H Pulse Rate [ 111 H From Monitor] Respiratory 30 H 49 H 43 H Rate Blood Pressure 93/55 85/59 86/57 O2 Sat by Pulse 100 Oximetry 12/19/18 12/19/18 12/19/18 22:15 22:30 22:45 Temperature Pulse Rate 115 H 119 H 113 H Pulse Rate [ From Monitor] Respiratory 25 H 52 H 26 H Rate Blood Pressure 85/56 88/56 82/53 O2 Sat by Pulse 99 Oximetry 12/19/18 12/19/18 12/19/18 23:00 23:15 23:30 Temperature Pulse Rate 110 H 113 H 114 H Pulse Rate [ From Monitor] Respiratory 35 H 25 H 24 Rate Blood Pressure 86/53 86/56 85/58 O2 Sat by Pulse 100 Oximetry 12/19/18 12/19/18 12/19/18 23:34 23:45 23:56 Temperature 97.3 F L Pulse Rate 110 H 112 H Pulse Rate [ From Monitor] Respiratory 22 24 Rate Blood Pressure 85/58 86/55 O2 Sat by Pulse 100 Oximetry 12/20/18 12/20/18 12/20/18 00:00 00:15 00:30 Temperature Pulse Rate 117 H 113 H 112 H Pulse Rate [ 117 H From Monitor] Respiratory 24 24 47 H Rate Blood Pressure 85/58 85/56 96/58 O2 Sat by Pulse 100 100 100 Oximetry 12/20/18 12/20/18 12/20/18 00:45 01:00 01:15 Temperature Pulse Rate 117 H 113 H 116 H Pulse Rate [ From Monitor] Respiratory 24 22 25 H Rate Blood Pressure 82/58 86/53 89/55 O2 Sat by Pulse 100 100 100 Oximetry 12/20/18 12/20/18 12/20/18 01:30 01:45 02:00 Temperature Pulse Rate 110 H 118 H 116 H Pulse Rate [ 114 H From Monitor] Respiratory 22 23 23 Rate Blood Pressure 83/53 93/57 92/60 O2 Sat by Pulse 100 100 Oximetry 12/20/18 12/20/18 12/20/18 02:15 02:30 02:45 Temperature Pulse Rate 115 H 120 H 113 H Pulse Rate [ From Monitor] Respiratory 23 25 H 40 H Rate Blood Pressure 96/63 96/63 91/56 O2 Sat by Pulse 100 Oximetry 12/20/18 12/20/18 12/20/18 03:00 03:15 03:30 Temperature Pulse Rate 113 H 119 H 115 H Pulse Rate [ From Monitor] Respiratory 23 48 H 23 Rate Blood Pressure 92/55 92/62 88/56 O2 Sat by Pulse 100 100 100 Oximetry 12/20/18 12/20/18 12/20/18 03:45 03:58 04:00 Temperature 97.0 F L Pulse Rate 121 H 115 H Pulse Rate [ 116 H From Monitor] Respiratory 21 30 H Rate Blood Pressure 92/62 85/56 O2 Sat by Pulse 100 Oximetry 12/20/18 12/20/18 12/20/18 04:15 04:30 04:45 Temperature Pulse Rate 118 H 121 H 121 H Pulse Rate [ From Monitor] Respiratory 24 24 24 Rate Blood Pressure 98/59 92/62 90/54 O2 Sat by Pulse 100 100 100 Oximetry 12/20/18 12/20/18 12/20/18 05:00 05:15 05:30 Temperature Pulse Rate 117 H 118 H 117 H Pulse Rate [ From Monitor] Respiratory 18 24 21 Rate Blood Pressure 92/58 84/54 85/56 O2 Sat by Pulse 100 99 Oximetry 12/20/18 12/20/18 12/20/18 05:45 06:00 06:15 Temperature Pulse Rate 123 H 125 H 124 H Pulse Rate [ From Monitor] Respiratory 25 H 26 H 25 H Rate Blood Pressure 94/61 92/61 87/54 O2 Sat by Pulse 100 100 100 Oximetry 12/20/18 12/20/18 12/20/18 06:30 06:45 07:00 Temperature Pulse Rate 125 H 124 H 123 H Pulse Rate [ From Monitor] Respiratory 25 H 26 H 26 H Rate Blood Pressure 95/60 91/62 91/61 O2 Sat by Pulse 100 100 100 Oximetry 12/20/18 12/20/18 12/20/18 07:15 07:30 07:45 Temperature Pulse Rate 117 H 125 H 120 H Pulse Rate [ From Monitor] Respiratory 25 H 26 H 33 H Rate Blood Pressure 82/56 91/59 88/56 O2 Sat by Pulse 100 100 100 Oximetry 12/20/18 08:00 Temperature Pulse Rate 112 H Pulse Rate [ From Monitor] Respiratory 25 H Rate Blood Pressure 88/56 O2 Sat by Pulse 100 Oximetry Constitutional: no acute distress, other (cachectic looking AAM, with temporal wasting riding the ventilator without obvious distress) Eyes: icteric ENT: oropharynx moist, other (ETT 24 cm RAYMUNDO) Neck: supple, no lymphadenopathy, no JVD Effort: mildly labored Ascultation: Bilateral: diminished breath sounds, rhonchi (scant) Percussion: Bilateral: not dull Cardiovascular: regular rate and rhythm Gastrointestinal: hypoactive bowel sounds, soft, non-tender, other (distended) Integumentary: other (poor turgor) Extremities: no cyanosis, pulses normal, no ischemia or petechiae, edema Neurologic: pupils equal and round, other (near obtunded; attempts to open eyes to name calling) Psychiatric: other (unable to assess) CBC and BMP: 12/19/18 06:15 12/19/18 06:15 ABG, PT/INR, D-dimer: ABG POC ABG pH 7.391 (7.35-7.45) 12/19/18 05:41 POC ABG pO2 121 (80-105) H 12/19/18 05:41 POC ABG HCO3 14.0 (22-26 mml/L) 12/19/18 05:41 POC ABG Total CO2 15 (23-27mmol/L) 12/19/18 05:41 POC ABG O2 Sat 99 12/19/18 05:41 PT/INR, D-dimer PT 21.1 Sec. (12.2-14.9) H 12/18/18 08:15 INR 1.87 (0.87-1.13) H 12/18/18 08:15 Abnormal lab findings: Abnormal Labs 12/14/18 12/14/18 12/14/18 12:05 12:19 12:19 WBC RBC Hgb Hct MCV MCH RDW Plt Count Lymph % (Auto) Lymph # Seg Neutrophils % Seg Neuts % (Manual) Lymphocytes % (Manual) Seg Neutrophils # Lymphocytes # (Manual) PT 24.2 H INR 2.22 H APTT POC ABG pH POC ABG pCO2 POC ABG pO2 Sodium Potassium Chloride Carbon Dioxide BUN Creatinine Glucose POC Glucose 61 L Lactic Acid Calcium Phosphorus 5.10 H Total Bilirubin Direct Bilirubin AST ALT Alkaline Phosphatase Ammonia C-Reactive Protein Total Protein Albumin Ur Specific [place] Urine WBC (Auto) Crossmatch 12/14/18 12/14/18 12/14/18 12:20 12:28 13:58 WBC RBC Hgb 8.8 L Hct 27.0 L MCV 67 L MCH 22 L RDW 21.3 H Plt Count Lymph % (Auto) 6.9 L Lymph # 0.5 L Seg Neutrophils % 87.1 H Seg Neuts % (Manual) Lymphocytes % (Manual) Seg Neutrophils # Lymphocytes # (Manual) PT INR APTT POC ABG pH POC ABG pCO2 POC ABG pO2 Sodium 129 L Potassium Chloride 95.5 L Carbon Dioxide 21 L BUN 32 H Creatinine 0.5 L Glucose 411 H POC Glucose 61 L Lactic Acid Calcium 7.3 L Phosphorus Total Bilirubin 4.20 H Direct Bilirubin 3.4 H AST 405 H ALT 109 H Alkaline Phosphatase 438 H Ammonia C-Reactive Protein Total Protein 4.4 L Albumin 2.0 L Ur Specific [place] Urine WBC (Auto) Crossmatch 12/14/18 12/14/18 12/14/18 13:59 14:38 17:41 WBC RBC Hgb Hct MCV MCH RDW Plt Count Lymph % (Auto) Lymph # Seg Neutrophils % Seg Neuts % (Manual) Lymphocytes % (Manual) Seg Neutrophils # Lymphocytes # (Manual) PT INR APTT POC ABG pH POC ABG pCO2 POC ABG pO2 Sodium 135 L Potassium 5.8 H D Chloride Carbon Dioxide 20 L BUN 31 H Creatinine 0.3 L Glucose POC Glucose < 40 L Lactic Acid Calcium 7.8 L Phosphorus Total Bilirubin 4.90 H Direct Bilirubin AST 611 H ALT 163 H Alkaline Phosphatase 500 H Ammonia 83.0 H C-Reactive Protein Total Protein 5.1 L Albumin 2.2 L Ur Specific [place] Urine WBC (Auto) Crossmatch 12/14/18 12/14/18 12/15/18 17:59 23:45 00:21 WBC RBC Hgb Hct MCV MCH RDW Plt Count Lymph % (Auto) Lymph # Seg Neutrophils % Seg Neuts % (Manual) Lymphocytes % (Manual) Seg Neutrophils # Lymphocytes # (Manual) PT INR APTT POC ABG pH POC ABG pCO2 POC ABG pO2 Sodium Potassium Chloride Carbon Dioxide BUN Creatinine Glucose 139 H POC Glucose 53 L 49 L Lactic Acid Calcium Phosphorus Total Bilirubin Direct Bilirubin AST ALT Alkaline Phosphatase Ammonia C-Reactive Protein Total Protein Albumin Ur Specific [place] Urine WBC (Auto) Crossmatch 12/15/18 12/15/18 12/15/18 03:50 04:05 04:05 WBC RBC Hgb 10.6 L Hct 32.4 L MCV 66 L MCH 22 L RDW 20.5 H Plt Count Lymph % (Auto) Lymph # Seg Neutrophils % Seg Neuts % (Manual) 88.0 H Lymphocytes % (Manual) 7.0 L Seg Neutrophils # Lymphocytes # (Manual) 0.6 L PT INR APTT POC ABG pH 7.563 H POC ABG pCO2 POC ABG pO2 155 H Sodium Potassium Chloride Carbon Dioxide 20 L BUN 28 H Creatinine < 0.2 L Glucose 58 L POC Glucose Lactic Acid Calcium 8.3 L Phosphorus Total Bilirubin 5.20 H Direct Bilirubin AST 972 H ALT 241 H Alkaline Phosphatase 511 H Ammonia C-Reactive Protein Total Protein 5.4 L Albumin 2.4 L Ur Specific [place] Urine WBC (Auto) Crossmatch 12/15/18 12/15/18 12/15/18 06:35 09:14 09:54 WBC RBC Hgb Hct MCV MCH RDW Plt Count Lymph % (Auto) Lymph # Seg Neutrophils % Seg Neuts % (Manual) Lymphocytes % (Manual) Seg Neutrophils # Lymphocytes # (Manual) PT INR APTT POC ABG pH 7.530 H POC ABG pCO2 POC ABG pO2 160 H 138 H Sodium Potassium Chloride Carbon Dioxide BUN Creatinine Glucose POC Glucose 43 L Lactic Acid Calcium Phosphorus Total Bilirubin Direct Bilirubin AST ALT Alkaline Phosphatase Ammonia C-Reactive Protein Total Protein Albumin Ur Specific [place] Urine WBC (Auto) Crossmatch 12/15/18 12/15/18 12/15/18 10:15 13:40 19:25 WBC RBC Hgb Hct MCV MCH RDW Plt Count Lymph % (Auto) Lymph # Seg Neutrophils % Seg Neuts % (Manual) Lymphocytes % (Manual) Seg Neutrophils # Lymphocytes # (Manual) PT INR APTT POC ABG pH POC ABG pCO2 POC ABG pO2 Sodium Potassium Chloride Carbon Dioxide BUN Creatinine Glucose POC Glucose 123 H Lactic Acid 4.10 H* 2.60 H* Calcium Phosphorus Total Bilirubin Direct Bilirubin AST ALT Alkaline Phosphatase Ammonia C-Reactive Protein Total Protein Albumin Ur Specific [place] Urine WBC (Auto) Crossmatch 12/15/18 12/16/18 12/16/18 21:22 00:23 00:37 WBC RBC Hgb Hct MCV MCH RDW Plt Count Lymph % (Auto) Lymph # Seg Neutrophils % Seg Neuts % (Manual) Lymphocytes % (Manual) Seg Neutrophils # Lymphocytes # (Manual) PT INR APTT POC ABG pH POC ABG pCO2 POC ABG pO2 Sodium Potassium Chloride Carbon Dioxide BUN Creatinine Glucose 282 H POC Glucose 41 L Lactic Acid 2.80 H* Calcium Phosphorus Total Bilirubin Direct Bilirubin AST ALT Alkaline Phosphatase Ammonia C-Reactive Protein Total Protein Albumin Ur Specific [place] Urine WBC (Auto) Crossmatch 12/16/18 12/16/18 12/16/18 01:10 03:33 06:25 WBC RBC Hgb Hct MCV MCH RDW Plt Count Lymph % (Auto) Lymph # Seg Neutrophils % Seg Neuts % (Manual) Lymphocytes % (Manual) Seg Neutrophils # Lymphocytes # (Manual) PT INR APTT POC ABG pH 7.328 L POC ABG pCO2 POC ABG pO2 118 H Sodium Potassium Chloride Carbon Dioxide BUN Creatinine Glucose POC Glucose 156 H 166 H Lactic Acid Calcium Phosphorus Total Bilirubin Direct Bilirubin AST ALT Alkaline Phosphatase Ammonia C-Reactive Protein Total Protein Albumin Ur Specific [place] Urine WBC (Auto) Crossmatch 12/16/18 12/16/18 12/16/18 12:20 15:14 15:14 WBC RBC Hgb Hct MCV MCH RDW Plt Count Lymph % (Auto) Lymph # Seg Neutrophils % Seg Neuts % (Manual) Lymphocytes % (Manual) Seg Neutrophils # Lymphocytes # (Manual) PT INR APTT POC ABG pH POC ABG pCO2 POC ABG pO2 Sodium Potassium Chloride Carbon Dioxide BUN Creatinine Glucose POC Glucose 216 H Lactic Acid 6.50 H* Calcium Phosphorus Total Bilirubin Direct Bilirubin AST ALT Alkaline Phosphatase Ammonia C-Reactive Protein 7.50 H Total Protein Albumin Ur Specific [place] Urine WBC (Auto) Crossmatch 12/16/18 12/16/18 12/16/18 15:14 15:14 16:46 WBC RBC Hgb Hct MCV MCH RDW Plt Count Lymph % (Auto) Lymph # Seg Neutrophils % Seg Neuts % (Manual) Lymphocytes % (Manual) Seg Neutrophils # Lymphocytes # (Manual) PT INR APTT POC ABG pH POC ABG pCO2 POC ABG pO2 Sodium 135 L Potassium Chloride Carbon Dioxide 19 L BUN 32 H Creatinine 0.6 L D Glucose 219 H POC Glucose Lactic Acid 6.40 H* Calcium 7.7 L Phosphorus Total Bilirubin 5.10 H Direct Bilirubin AST 791 H ALT 261 H Alkaline Phosphatase 453 H Ammonia 91.0 H C-Reactive Protein Total Protein 4.7 L Albumin 2.0 L Ur Specific [place] Urine WBC (Auto) Crossmatch 12/16/18 12/16/18 12/16/18 18:59 20:09 23:48 WBC RBC Hgb Hct MCV MCH RDW Plt Count Lymph % (Auto) Lymph # Seg Neutrophils % Seg Neuts % (Manual) Lymphocytes % (Manual) Seg Neutrophils # Lymphocytes # (Manual) PT INR APTT POC ABG pH POC ABG pCO2 POC ABG pO2 Sodium Potassium Chloride Carbon Dioxide BUN Creatinine Glucose POC Glucose 309 H Lactic Acid 6.20 H* 5.20 H* Calcium Phosphorus Total Bilirubin Direct Bilirubin AST ALT Alkaline Phosphatase Ammonia C-Reactive Protein Total Protein Albumin Ur Specific [place] Urine WBC (Auto) Crossmatch 12/17/18 12/17/18 12/17/18 00:30 03:24 05:58 WBC RBC Hgb Hct MCV MCH RDW Plt Count Lymph % (Auto) Lymph # Seg Neutrophils % Seg Neuts % (Manual) Lymphocytes % (Manual) Seg Neutrophils # Lymphocytes # (Manual) PT INR APTT POC ABG pH POC ABG pCO2 34.5 L POC ABG pO2 118 H Sodium Potassium Chloride Carbon Dioxide BUN Creatinine Glucose POC Glucose 186 H Lactic Acid 3.90 H* Calcium Phosphorus Total Bilirubin Direct Bilirubin AST ALT Alkaline Phosphatase Ammonia C-Reactive Protein Total Protein Albumin Ur Specific [place] Urine WBC (Auto) Crossmatch 12/17/18 12/17/18 12/17/18 07:00 11:51 17:02 WBC RBC Hgb Hct MCV MCH RDW Plt Count Lymph % (Auto) Lymph # Seg Neutrophils % Seg Neuts % (Manual) Lymphocytes % (Manual) Seg Neutrophils # Lymphocytes # (Manual) PT INR APTT POC ABG pH POC ABG pCO2 POC ABG pO2 125 H Sodium Potassium Chloride Carbon Dioxide BUN Creatinine Glucose POC Glucose 173 H Lactic Acid 3.10 H* Calcium Phosphorus Total Bilirubin Direct Bilirubin AST ALT Alkaline Phosphatase Ammonia C-Reactive Protein Total Protein Albumin Ur Specific [place] Urine WBC (Auto) Crossmatch 12/17/18 12/17/18 12/18/18 17:38 23:34 05:00 WBC RBC 3.01 L Hgb 6.6 L Hct 20.2 L MCV 67 L MCH 22 L RDW 22.3 H Plt Count 87 L Lymph % (Auto) 4.9 L Lymph # 0.5 L Seg Neutrophils % 89.3 H Seg Neuts % (Manual) Lymphocytes % (Manual) Seg Neutrophils # 9.1 H Lymphocytes # (Manual) PT INR APTT POC ABG pH POC ABG pCO2 POC ABG pO2 Sodium Potassium Chloride Carbon Dioxide BUN Creatinine Glucose POC Glucose 174 H 172 H Lactic Acid Calcium Phosphorus Total Bilirubin Direct Bilirubin AST ALT Alkaline Phosphatase Ammonia C-Reactive Protein Total Protein Albumin Ur Specific [place] Urine WBC (Auto) Crossmatch 12/18/18 12/18/18 12/18/18 05:00 05:00 05:03 WBC RBC Hgb Hct MCV MCH RDW Plt Count Lymph % (Auto) Lymph # Seg Neutrophils % Seg Neuts % (Manual) Lymphocytes % (Manual) Seg Neutrophils # Lymphocytes # (Manual) PT INR APTT POC ABG pH POC ABG pCO2 POC ABG pO2 Sodium Potassium Chloride 111.8 H Carbon Dioxide 21 L BUN 36 H Creatinine 0.6 L Glucose 139 H POC Glucose 161 H Lactic Acid 4.40 H* Calcium 7.5 L Phosphorus Total Bilirubin Direct Bilirubin AST ALT Alkaline Phosphatase Ammonia C-Reactive Protein Total Protein Albumin Ur Specific [place] Urine WBC (Auto) Crossmatch 12/18/18 12/18/18 12/18/18 08:15 08:15 08:15 WBC RBC Hgb 6.8 L Hct 20.6 L MCV MCH RDW Plt Count Lymph % (Auto) Lymph # Seg Neutrophils % Seg Neuts % (Manual) Lymphocytes % (Manual) Seg Neutrophils # Lymphocytes # (Manual) PT 21.1 H INR 1.87 H APTT 37.7 H POC ABG pH POC ABG pCO2 POC ABG pO2 Sodium Potassium Chloride Carbon Dioxide BUN Creatinine Glucose POC Glucose Lactic Acid 3.60 H* Calcium Phosphorus Total Bilirubin Direct Bilirubin AST ALT Alkaline Phosphatase Ammonia C-Reactive Protein Total Protein Albumin Ur Specific [place] Urine WBC (Auto) Crossmatch 12/18/18 12/18/18 12/18/18 12:04 14:30 14:49 WBC RBC Hgb Hct MCV MCH RDW Plt Count Lymph % (Auto) Lymph # Seg Neutrophils % Seg Neuts % (Manual) Lymphocytes % (Manual) Seg Neutrophils # Lymphocytes # (Manual) PT INR APTT POC ABG pH POC ABG pCO2 POC ABG pO2 Sodium Potassium Chloride Carbon Dioxide BUN Creatinine Glucose POC Glucose 68 L Lactic Acid Calcium Phosphorus Total Bilirubin 4.00 H Direct Bilirubin 3.4 H AST 1657 H ALT 551 H Alkaline Phosphatase 666 H Ammonia C-Reactive Protein Total Protein 3.8 L Albumin 1.6 L Ur Specific [place] Urine WBC (Auto) Crossmatch See Detail 12/18/18 12/18/18 12/18/18 15:14 18:36 23:24 WBC RBC Hgb Hct MCV MCH RDW Plt Count Lymph % (Auto) Lymph # Seg Neutrophils % Seg Neuts % (Manual) Lymphocytes % (Manual) Seg Neutrophils # Lymphocytes # (Manual) PT INR APTT POC ABG pH POC ABG pCO2 POC ABG pO2 Sodium Potassium Chloride Carbon Dioxide BUN Creatinine Glucose POC Glucose 121 H 160 H 207 H Lactic Acid Calcium Phosphorus Total Bilirubin Direct Bilirubin AST ALT Alkaline Phosphatase Ammonia C-Reactive Protein Total Protein Albumin Ur Specific [place] Urine WBC (Auto) Crossmatch 12/19/18 12/19/18 12/19/18 05:41 05:53 06:15 WBC 12.6 H RBC Hgb 11.2 L D Hct 33.1 L D MCV 74 L MCH 25 L RDW 26.3 H Plt Count 66 L Lymph % (Auto) Lymph # Seg Neutrophils % Seg Neuts % (Manual) Lymphocytes % (Manual) Seg Neutrophils # Lymphocytes # (Manual) PT INR APTT POC ABG pH POC ABG pCO2 POC ABG pO2 121 H Sodium Potassium Chloride Carbon Dioxide BUN Creatinine Glucose POC Glucose 146 H Lactic Acid Calcium Phosphorus Total Bilirubin Direct Bilirubin AST ALT Alkaline Phosphatase Ammonia C-Reactive Protein Total Protein Albumin Ur Specific [place] Urine WBC (Auto) Crossmatch 12/19/18 12/19/18 12/19/18 06:15 11:46 12:00 WBC RBC Hgb Hct MCV MCH RDW Plt Count Lymph % (Auto) Lymph # Seg Neutrophils % Seg Neuts % (Manual) Lymphocytes % (Manual) Seg Neutrophils # Lymphocytes # (Manual) PT INR APTT POC ABG pH POC ABG pCO2 POC ABG pO2 Sodium 146 H Potassium 3.1 L Chloride 115.0 H Carbon Dioxide 17 L BUN 46 H Creatinine 0.7 L Glucose 116 H POC Glucose 149 H Lactic Acid Calcium 7.6 L Phosphorus Total Bilirubin 4.60 H Direct Bilirubin AST 1302 H ALT 534 H Alkaline Phosphatase 754 H Ammonia C-Reactive Protein Total Protein 4.3 L Albumin 1.7 L Ur Specific [place] 1.031 H Urine WBC (Auto) 55.0 H Crossmatch 12/19/18 12/19/18 12/20/18 17:39 23:20 05:16 WBC RBC Hgb Hct MCV MCH RDW Plt Count Lymph % (Auto) Lymph # Seg Neutrophils % Seg Neuts % (Manual) Lymphocytes % (Manual) Seg Neutrophils # Lymphocytes # (Manual) PT INR APTT POC ABG pH POC ABG pCO2 POC ABG pO2 Sodium Potassium Chloride Carbon Dioxide BUN Creatinine Glucose POC Glucose 140 H 166 H 155 H Lactic Acid Calcium Phosphorus Total Bilirubin Direct Bilirubin AST ALT Alkaline Phosphatase Ammonia C-Reactive Protein Total Protein Albumin Ur Specific [place] Urine WBC (Auto) Crossmatch Allied health notes reviewed: nursing
--- NOTE | 2018-12-20 08:54 | Progress Note ---
Hospitalist Physical - Constitutional Vitals: Temp Pulse Resp BP Pulse Ox 97.0 F L 112 H 25 H 88/56 100 12/20/18 03:58 12/20/18 08:00 12/20/18 08:00 12/20/18 08:00 12/20/18 08:00 General appearance: Present: other (orally intubated) Results - Labs CBC & Chem 7: 12/19/18 06:15 12/19/18 06:15 Labs: Laboratory Last Values WBC 12.6 K/mm3 (4.5-11.0) H 12/19/18 06:15 RBC 4.49 M/mm3 (3.65-5.03) 12/19/18 06:15 Hgb 11.2 gm/dl (11.8-15.2) L D 12/19/18 06:15 Hct 33.1 % (35.5-45.6) L D 12/19/18 06:15 MCV 74 fl (84-94) L 12/19/18 06:15 MCH 25 pg (28-32) L 12/19/18 06:15 MCHC 34 % (32-34) 12/19/18 06:15 RDW 26.3 % (13.2-15.2) H 12/19/18 06:15 Plt Count 66 K/mm3 (140-440) L 12/19/18 06:15 Lymph % (Auto) 4.9 % (13.4-35.0) L 12/18/18 05:00 [place] % (Auto) 5.6 % (0.0-7.3) 12/18/18 05:00 Eos % (Auto) 0.1 % (0.0-4.3) 12/18/18 05:00 Baso % (Auto) 0.1 % (0.0-1.8) 12/18/18 05:00 Lymph # 0.5 K/mm3 (1.2-5.4) L 12/18/18 05:00 [place] # 0.6 K/mm3 (0.0-0.8) 12/18/18 05:00 Eos # 0.0 K/mm3 (0.0-0.4) 12/18/18 05:00 Baso # 0.0 K/mm3 (0.0-0.1) 12/18/18 05:00 Add Manual Diff Complete 12/15/18 04:05 Total Counted 100 12/15/18 04:05 Seg Neutrophils % 89.3 % (40.0-70.0) H 12/18/18 05:00 Seg Neuts % (Manual) 88.0 % (40.0-70.0) H 12/15/18 04:05 2.0 % 12/15/18 04:05 7.0 % (13.4-35.0) L 12/15/18 04:05 Reactive Lymphs % (Man) 0 % 12/15/18 04:05 3.0 % (0.0-7.3) 12/15/18 04:05 0 % (0.0-4.3) 12/15/18 04:05 0 % (0.0-1.8) 12/15/18 04:05 0 % 12/15/18 04:05 0 % 12/15/18 04:05 0 % 12/15/18 04:05 0 % 12/15/18 04:05 Nucleated RBC % Not Reportable 12/15/18 04:05 Seg Neutrophils # 9.1 K/mm3 (1.8-7.7) H 12/18/18 05:00 Seg Neutrophils # Man 7.3 K/mm3 (1.8-7.7) 12/15/18 04:05 Band Neutrophils # 0.2 K/mm3 12/15/18 04:05 0.6 K/mm3 (1.2-5.4) L 12/15/18 04:05 Abs React Lymphs (Man) 0.0 K/mm3 12/15/18 04:05 0.2 K/mm3 (0.0-0.8) 12/15/18 04:05 0.0 K/mm3 (0.0-0.4) 12/15/18 04:05 0.0 K/mm3 (0.0-0.1) 12/15/18 04:05 0.0 K/mm3 12/15/18 04:05 0.0 K/mm3 12/15/18 04:05 0.0 K/mm3 12/15/18 04:05 Blast Cells # 0.0 K/mm3 12/15/18 04:05 WBC Morphology Not Reportable 12/15/18 04:05 Hypersegmented Neuts Not Reportable 12/15/18 04:05 Hyposegmented Neuts Not Reportable 12/15/18 04:05 Hypogranular Neuts Not Reportable 12/15/18 04:05 Not Reportable 12/15/18 04:05 Not Reportable 12/15/18 04:05 Not Reportable 12/15/18 04:05 Not Reportable 12/15/18 04:05 Not Reportable 12/15/18 04:05 Not Reportable 12/15/18 04:05 Consistent w auto 12/15/18 04:05 Not Reportable 12/15/18 04:05 Plt Clumps, EDTA Not Reportable 12/15/18 04:05 Not Reportable 12/15/18 04:05 Not Reportable 12/15/18 04:05 Not Reportable 12/15/18 04:05 Plt Morphology Comment Not Reportable 12/15/18 04:05 RBC Morphology Not Reportable 12/15/18 04:05 Dimorphic RBCs Not Reportable 12/15/18 04:05 Not Reportable 12/15/18 04:05 1+ 12/15/18 04:05 1+ 12/15/18 04:05 2+ 12/15/18 04:05 2+ 12/15/18 04:05 Not Reportable 12/15/18 04:05 Not Reportable 12/15/18 04:05 Not Reportable 12/15/18 04:05 Not Reportable 12/15/18 04:05 1+ 12/15/18 04:05 Rare 12/15/18 04:05 Few 12/15/18 04:05 Not Reportable 12/15/18 04:05 Not Reportable 12/15/18 04:05 Not Reportable 12/15/18 04:05 Not Reportable 12/15/18 04:05 Not Reportable 12/15/18 04:05 Not Reportable 12/15/18 04:05 Few 12/15/18 04:05 Acanthocytes (Spur) Few 12/15/18 04:05 Rouleaux Not Reportable 12/15/18 04:05 Not Reportable 12/15/18 04:05 Not Reportable 12/15/18 04:05 Not Reportable 12/15/18 04:05 Not Reportable 12/15/18 04:05 Hem Pathologist Commnt No 12/15/18 04:05 PT 21.1 Sec. (12.2-14.9) H 12/18/18 08:15 INR 1.87 (0.87-1.13) H 12/18/18 08:15 APTT 37.7 Sec. (24.2-36.6) H 12/18/18 08:15 POC ABG pH 7.391 (7.35-7.45) 12/19/18 05:41 POC ABG pCO2 34.5 (35-45) L 12/17/18 03:24 POC ABG pO2 121 (80-105) H 12/19/18 05:41 POC ABG HCO3 14.0 (22-26 mml/L) 12/19/18 05:41 POC ABG Total CO2 15 (23-27mmol/L) 12/19/18 05:41 POC ABG O2 Sat 99 12/19/18 05:41 POC ABG Base Excess -11 ((-2) - (+3)mmol/L) 12/19/18 05:41 25 % 12/19/18 05:41 Sodium 146 mmol/L (137-145) H 12/19/18 06:15 Potassium 3.1 mmol/L (3.6-5.0) L 12/19/18 06:15 Chloride 115.0 mmol/L (98-107) H 12/19/18 06:15 Carbon Dioxide 17 mmol/L (22-30) L 12/19/18 06:15 17 mmol/L 12/19/18 06:15 BUN 46 mg/dL (9-20) H 12/19/18 06:15 0.7 mg/dL (0.8-1.5) L 12/19/18 06:15 Estimated GFR > 60 ml/min 12/19/18 06:15 66 % 12/19/18 06:15 Glucose 116 mg/dL (75-100) H 12/19/18 06:15 POC Glucose 155 (70-105) H 12/20/18 05:16 Lactic Acid 3.60 mmol/L (0.7-2.0) H* 12/18/18 08:15 Calcium 7.6 mg/dL (8.4-10.2) L 12/19/18 06:15 Phosphorus 5.10 mg/dL (2.5-4.5) H 12/14/18 12:19 Magnesium 2.00 mg/dL (1.7-2.3) 12/14/18 12:20 4.60 mg/dL (0.1-1.2) H 12/19/18 06:15 3.4 mg/dL (0-0.2) H 12/18/18 14:30 0.6 mg/dL 12/18/18 14:30 AST 1302 units/L (5-40) H 12/19/18 06:15 ALT 534 units/L (7-56) H 12/19/18 06:15 754 units/L (35-129) H 12/19/18 06:15 53.0 umol/L (25-60) 12/18/18 05:00 < 0.010 ng/mL (0.00-0.029) 12/14/18 12:19 7.50 mg/dL (0.00-1.30) H 12/16/18 15:14 NT-Pro-B Natriuret Pep 567.7 pg/mL (0-900) 12/14/18 12:20 4.3 g/dL (6.3-8.2) L 12/19/18 06:15 1.7 g/dL (3.9-5) L 12/19/18 06:15 0.7 % 12/19/18 06:15 Nicole (Yellow) 12/19/18 12:00 Turbid (Clear) 12/19/18 12:00 5.0 (5.0-7.0) 12/19/18 12:00 Ur Specific [place] 1.031 (1.003-1.030) H 12/19/18 12:00 30 mg/dl mg/dL (Negative) 12/19/18 12:00 50 mg/dL (Negative) 12/19/18 12:00 Tr mg/dL (Negative) 12/19/18 12:00 Mod (Negative) 12/19/18 12:00 Neg (Negative) 12/19/18 12:00 Sm (Negative) 12/19/18 12:00 Negative (Negative) 12/19/18 12:00 < 2.0 mg/dL (<2.0) 12/19/18 12:00 Ur Leukocyte Esterase Neg (Negative) 12/19/18 12:00 55.0 /HPF (0.0-6.0) H 12/19/18 12:00 19.0 /HPF (0.0-6.0) 12/19/18 12:00 U Epithel Cells (Auto) 1.0 /HPF (0-13.0) 12/19/18 12:00 2+ /HPF (Negative) 12/19/18 12:00 Blood Type O POSITIVE 12/18/18 14:49 Antibody Screen Negative 12/18/18 14:49 Crossmatch See Detail 12/18/18 14:49 Active Medications - Current Medications Current Medications: Generic Name Dose Route Start Last Admin Trade Name Freq PRN Reason Stop Dose Admin Albuterol 2.5 mg 12/14/18 18:46 Proventil IH Q3HRT PRN Shortness Of Breath Lipase/Protease/Amylase 1 each 12/15/18 10:[address] 10,500 Unit FEEDTUBE PRN PRN For Clogged Feeding Tube Dextrose 50 ml 12/16/18 00:31 D50w (25gm) Syringe IV PRN PRN Hypoglycemia Fentanyl 50 mcg 12/14/18 19:53 Sublimaze IV Q10MIN PRN ANALGESIA Hydrophilic Ointment 1 applic 12/14/18 12:16 12/19/18 22:38 Vaseline Lip Therapy TP 1 applic Q2HR PRN Administration Dry Lips Fentanyl Citrate 2,000 mcg in 100 mls @ 2.574 mls/hr 12/14/18 20:00 12/18/18 06:44 Fentanyl Drip Premix IV 0 mcg/kg/hr TITR DAMON 0 mls/hr Titration Protocol 1 MCG/KG/HR Sodium Chloride 1,000 mls @ 100 mls/hr 12/16/18 20:00 12/20/18 06:43 Nacl 0.9% 1000 Ml IV 100 mls/hr DIRECT DAMON Administration Norepinephrine 4 mg in 250 mls @ 7.5 mls/hr 12/18/18 08:00 12/20/18 08:17 Levophed Drip 4 Mg/Ns 250 Ml IV 6 mcg/min TITR DAMON 22.5 mls/hr Titration Protocol 2 MCG/MIN Ceftriaxone Sodium 2 gm in 100 mls @ 200 mls/hr 12/19/18 11:00 12/19/18 12:27 Rocephin/Ns 2 Gm/100 Ml IV Infused Q24HR DAMON Infusion Protocol Insulin Human Regular 0 units 12/16/18 20:00 12/20/18 06:43 Humulin R SUB-Q 1 units Q6HR DAMON Administration Protocol Lansoprazole 30 mg 12/18/18 14:00 12/19/18 22:27 Prevacid Solutab FEEDTUBE 30 mg BID DAMON Administration Morphine Sulfate 2 mg 12/14/18 18:46 Morphine IV Q2H PRN Pain, Moderate (4-6) Multi-Ingred Cream/Lotion/Oil/Oint 1 applic 12/14/18 12:16 12/19/18 22:38 Artificial Tears Ophth Oint OU 1 applic Q4HR PRN Administration Dry Eye(s) Simple Syrup 15 ml 12/15/18 10:17 12/18/18 12:12 Simple Syrup FEEDTUBE 15 ml PRN PRN Administration Hypoglycemia Simple Syrup 30 ml 12/15/18 10:17 Simple Syrup FEEDTUBE PRN PRN Hypoglycemia Sodium Bicarbonate 325 mg 12/15/18 10:17 Sodium Bicarbonate FEEDTUBE PRN PRN For Clogged Feeding Tube Sodium Chloride 10 ml 12/14/18 22:00 12/19/18 22:28 Sodium Chloride Flush Syringe 10 Ml IV 10 ml BID DAMON Administration Sodium Chloride 10 ml 12/14/18 18:46 Sodium Chloride Flush Syringe 10 Ml IV PRN PRN LINE FLUSH Nutrition/Malnutrition Assess - Dietary Evaluation Nutrition/Malnutrition Findings: Nutrition Notes Start: 12/15/18 10:49 Freq: Status: Active Protocol: Document 12/17/18 10:27 LP (Rec: 12/17/18 10:33 LP [id number]) Nutrition Notes Initial or Follow up Reassessment Current Diagnosis Respiratory Failure Other Pertinent Diagnosis Encephalopathy, Hepatic failure, Malignant neoplasm Current Diet Osmolite 1.5 at 50ml/hr Labs/Tests 12/16/18 Na 135 BUN 32 Bili 5.10 Pertinent Medications Reviewed Height 5 ft 5 in Weight 51.483 kg [place] Body Weight (kg) 61.81 BMI 18.8 Subjective/Other Information Pt with severe temporal wasting. Pt tolerating TF at goal rate. Pt was on hospice and family cancelled. Pt BG levels were low and was on D5 IVFs. Percent of energy/protein needs met: 100%/100% Burn Absent Trauma Absent Minimum of two criteria Yes Energy Intake (severe) < or equal to 50% Estimated Energy Requirement > or equal to 5 days Body Fat Depletion Moderate depletion (severe) Muscle Mass Moderate Depletion (severe) #2 Nutrition Diagnosis Malnutrition Etiology malignant neoplasm As Evidenced by Signs and Symptoms observed severe temporal wasting and muscle mass loss, poor appetite [employer] #1 Nutrition Diagnosis Inadequate oral intake Diagnosis Progress(for reassessment Continues documentation) Is patient on ventilator? Yes Is Patient Ambulatory and/or Out of Bed No REE-([facility]-confined to bed) 1548.516 Kcal/Kg value to use for calculation 35 Approximate Energy Requirements Using 1802 kcal/Kg Calculation Used for Recommendations Kcal/kg Additional Notes Pro needs 62-103g (1.2-2g/kg) Fluid needs 1ml/kcal Nutrition Intervention Change Diet Order: TF Nutrition Support: Osmolite 1.5 at 50ml/hr with 150ml water flush q4h. Kcal 1,800 Protein (gm) 75 Fluid (mL) 914 Goal #1 TF tolerance Goal #2 TF (at goal rate) to meet 100% energy and pro needs Goal #3 Wt maintenance Anticipated Discharge Needs: Unable to determine at this time Follow-Up By: 12/20/18 Additional Comments Follow for TF tolerance, labs and wt, BG levels
[2018-12-20] MEDS: PREVACID SOLUTAB FEEDTUBE SCH (10:32)
[2018-12-20] MEDS: ROCEPHIN/NS 2 GM/100 ML 2 GM/100 ML BAG IV SCH (10:32)
[2018-12-20] MEDS: SODIUM CHLORIDE FLUSH SYRINGE 10 ML IV SCH (10:33)
--- NOTE | 2018-12-20 10:52 | Progress Note ---
Assessment and Plan Cultures: 12/14/2018 blood culture: No growth 12/14/2018 tracheal aspirate culture: Usual respiratory asad 12/19/2018 urine culture: negative A/P: 53-year-old male with metastatic cancer of unknown primary. Brought into the emergency room on 12/14/2018 after he was noted to be unresponsive and in respiratory distress, admitted with: #Shock: Unclear etiology. Possible sepsis but more likely from severe acidosis and hypoglycemia. Still on levophed. No fever or leukocytosis on admission. Bloo d cultures negative. No pneumonia on CXR. UA 55 wbc no LE. ? mild UTI #Hepatic failure versus shock liver: Elevated transaminases, alkaline phosphatase and bilirubin. #Acute encephalopathy: Likely hypoglycemic encephalopathy. #Anemia with thrombocytopenia status post transfusion. #Metastatic cancer of unknown primary: Previously was on hospice. Prognosis remains extremely poor. #Acute respiratory failure: on the vent. No evidence of pneumonia. #Severe malnutrition / cachexia: likely from malignancy. Recs: continue IV Ceftriaxone 2 gm daily family considering hospice Kinza Koch MD Infectious Diseases [employer] [facility] M [phone] O [phone] Subjective Date of service: 12/20/18 Principal diagnosis: anemia Interval history: Remains critically ill on levophed at 2, intubated, sedated. Objective - Exam Narrative Exam: General appearance:sedated intubated, cachectic Eyes: anicteric sclerae, moist conjunctivae; no lid-lag; PERRLA HENT: +temporal wasting. Atraumatic; oropharynx limited. Neck: Trachea midline; supple, no thyromegaly or lymphadenopathy Lungs: coarse BS lance CV: RRR Abdomen: Soft, non-tender Extremities: lance legs/arms edema Skin: Normal temperature, +scrotal edema Psych: no agitated Neuro: sedated - Constitutional Vitals: Vital Signs Temp Pulse Resp BP Pulse Ox 97.0 F L 112 H 25 H 88/56 100 12/20/18 03:58 12/20/18 08:00 12/20/18 08:00 12/20/18 08:00 12/20/18 08:00 Temperature -Last 24 Hours Temperature 97.0 F Temperature 97.3 F Temperature 97.6 F Temperature 97.4 F Temperature 97.5 F - Labs CBC & Chem 7: 12/19/18 06:15 12/19/18 06:15 Labs: Abnormal lab results 12/19/18 12/19/18 12/19/18 Range/Units 11:46 12:00 17:39 POC Glucose 149 H 140 H (70-105) Ur Specific [place] 1.031 H (1.003-1.030) Urine WBC (Auto) 55.0 H (0.0-6.0) /HPF 12/19/18 12/20/18 Range/Units 23:20 05:16 POC Glucose 166 H 155 H (70-105) Ur Specific [place] (1.003-1.030) Urine WBC (Auto) (0.0-6.0) /HPF
[2018-12-20] MEDS: LEVOPHED DRIP 4 MG/NS 250 ML 4 MG/250 ML BAG IV SCH (12:04)
--- NOTE | 2018-12-20 13:34 | Discharge Summary ---
Providers - Providers Date of Admission: 12/14/18 18:46 Date of discharge: 12/20/18 Attending physician: SLY TRIMBLE 12/14/18 12:16 Consult to Dietitian/Nutrition [CONS] Routine Physician Instructions: Reason For Exam: Reason for Consult: Evaluate nutritional intake 12/14/18 20:06 Consult to Physician [CONS] Routine Comment: Consulting Provider: LEYLA PRAKASH Physician Instructions: Reason For Exam: respiratory failure 12/15/18 10:18 Consult to Dietitian/Nutrition [CONS] Routine Physician Instructions: Assess nutrtn needs, initiate, modify, manage TF Reason For Exam: Reason for Consult: Write/Manage Tube Feeding Reason for Consult: Write/Manage Tube Feeding 12/16/18 19:04 PICC Line Placement [Consult to PICC Line RN] [CONS] Stat Reason For Exam: access Type Line:: PICC 12/18/18 13:38 Consult to Physician [CONS] Routine Comment: Consulting Provider: JENNIFER ROLON Physician Instructions: Reason For Exam: Anemia hgb 6.6, stool occult blood pos 12/19/18 08:12 Consult to Physician [CONS] Routine Comment: Consulting Provider: LOVE JI Physician Instructions: Reason For Exam: Poss sepsis/septic shock Primary care physician: HENRY MENESES Hospitalization Condition: Fair Hospital course: Patient is 53 yo male from [facility] Res[facility] on Hosp[facility] with [facility]. He has metastatic Neoplasm with Unknown primary. he presented to ED for evaluation, was unresponsive and unable to provide history. As per staff, the patient has experience decreased oral intake over the past 2 weeks with increased confusion, and unable to independently conduct activities of daily living. Patient was found to be stuporous on day of admission, EMS was notified and upon arrival the patient was found to be in respiratory distress with agonal respirations and a serum glucose of 10. Patient was intubated and initiated on D50 and transported to [facility]. Pt seen and evaluated in ED and placed on vent support. Family requested aggressive therapy. He was found to have Acute Respiratory Failure, sepsis, Severe Malnutrition, Encephalopathy, as well as R Lung mass, and Hepatic Failure. Patient remained vent dependent with very poor prognosis. Family decided on inpatient hospice care and he was discharged to hospice on 12/19/18 Total time spent on discharge, 40mins Sepsis with Septic shock. Continue Levophed as needed. Continue IV fluid hydration. Continue IV antibiotics. Acute hypoxemic respiratory failure. Patient orally intubated on mechanical ventilation. Wean vent as tolerated, daily SBT, ABG, supportive care. Pulmonary consulted and following. Primary cancer of unknown source. Metastatic Neoplasm with Unknown primary. Patient was previously on hospice. This designation apparently has been revoked. Coagulopathy. Etiology likely secondary to liver failure and malnutrition. Toxic metabolic encephalopathy. Also hepatic etiology. Continue lactulose. CT scan negative. Etiology secondary to sepsis and hypoglycemia. Hepatic failure. Etiology likely secondary to metastatic disease, pain control supportive care. Hypoglycemia. Cont. tube feedings. D50 as needed Anemia with acute hemoglobin drop. Poor prognosis. Disposition: [facility]- HOSPICE ([facility]) - Discharge Diagnoses (1) Sepsis Status: Acute (2) Septic shock Status: Acute (3) Acute respiratory failure Status: Acute Qualifiers: Respiratory failure complication: hypoxia Qualified Code(s): J96.01 - Acute respiratory failure with hypoxia (4) Hepatic failure Status: Acute Qualifiers: Hepatic coma status: with hepatic coma (5) Hypoglycemia Status: Acute (6) Hypothermia Status: Acute Qualifiers: Encounter type: initial encounter Qualified Code(s): T68.XXXA - Hypothermia, initial encounter (7) Toxic metabolic encephalopathy Status: Acute (8) Primary cancer of unknown site Status: Acute (9) Hyperammonemia Status: Acute (10) Hypernatremia Status: Acute Core Measure Documentation - Palliative Care Palliative Care/ Comfort Measures: Hospice Care - Core Measures Any of the following diagnoses?: none Exam - Constitutional Vitals: Temp Pulse Resp BP Pulse Ox 94.8 F L 121 H 26 H 97/64 99 12/20/18 08:00 12/20/18 13:00 12/20/18 13:00 12/20/18 13:00 12/20/18 13:00 Plan Activity: advance as tolerated Additional Instructions: 1.Transfer to care of hospice medical transcription editor Follow up with: HENRY MENESES JR, MD [Primary Care Provider] - 3-5 Days
[2018-12-20 14:15] VITALS: BP 103/60
== END 2018-12-20 14:27 | disposition hospice, inpatient (51) | DRG 870 ==
LOC: ED 11:52 → CC1 18:46
PROVIDERS: ADMIT Internal Medicine; ATTEND Internal Medicine
PROC: 5A1955Z Respiratory Ventilation, Greater than 96 Consecutive Hours (ICD-10-PCS; principal; 2018-12-14)
PROC: 0BH17EZ Insertion of Endotracheal Airway into Trachea, Via Natural or Artificial Opening (ICD-10-PCS; 2018-12-14)
PROC: 4A033R1 Measurement of Arterial Saturation, Peripheral, Percutaneous Approach (ICD-10-PCS; 2018-12-15)
PROC: 02HV33Z Insertion of Infusion Device into Superior Vena Cava, Percutaneous Approach (ICD-10-PCS; 2018-12-17)
PROC: 30233N1 Transfusion of Nonautologous Red Blood Cells into Peripheral Vein, Percutaneous Approach (ICD-10-PCS; 2018-12-18)
DX: A41.9 Sepsis, unspecified organism (principal); J96.01 Acute respiratory failure with hypoxia; R65.21 Severe sepsis with septic shock; G92 Toxic encephalopathy; E43 Unspecified severe protein-calorie malnutrition; K72.01 Acute and subacute hepatic failure with coma; Z68.1 Body mass index [BMI] 19.9 or less, adult; D68.9 Coagulation defect, unspecified; E16.2 Hypoglycemia, unspecified; K72.90 Hepatic failure, unspecified without coma; D69.6 Thrombocytopenia, unspecified; R91.8 Other nonspecific abnormal finding of lung field; D50.9 Iron deficiency anemia, unspecified; Z85.89 Personal history of malignant neoplasm of other organs and systems; Z85.038 Personal history of other malignant neoplasm of large intestine; Z80.8 Family history of malignant neoplasm of other organs or systems; Z79.899 Other long term (current) drug therapy
CPT/HCPCS: 36415; 36600; 70450; 71045; 74018; 80048; 80053; 80076; 81001; 82140; 82270; 82803; 82947; 82962; 83735; 83880; 84100; 84484; 85007; 85014; 85018; 85025; 85027; 85610; 85730; 86140; 86850; 86900; 86901; 86920; 87040; 87070; 87086; 87205; 93005; 93010; 94002; 94003; 96361; 96365; 96375; 99292; G0378; J0610; J0696; J1815; J2185; J2543; J3010; J3370; J3430; J7030; J7040; J7042; J7050; P9016